=== PATIENT | female | born 1945 | race Caucasian/White ===

== ENCOUNTER → 2016-10-27 | Outpatient (CLI) | payer OTHER, BC ==
[~2016-10-27] MED LIST: ACET-749 PO; BETAPOW PO; CHOL100010 PO; DILT120C68 PO; HYDR-389 PO; INDA2.5T PO; IRBE1TAB50 PO; POTA10CA28 PO; RANI150T3 PO; RED600TA PO; [UNRECOGNIZED DRUG - CODE] PO
[2016-10-27 13:26] LABS: ALT/SGPT 31 U/L (12-78); AST/SGOT 19 U/L (15-37); BLOOD UREA NITROGEN 18 mg/dl (7-18); BUN/CREATININE RATIO 22.5 (10-20); CARBON DIOXIDE 27 mmol/L (21-32); CHLORIDE 99 mmol/L (98-107); CHOLESTEROL 212 mg/dl (0-200); CREATININE 0.81 mg/dl (0.60-1.20); GLUCOSE 119 mg/dl (70-99); POTASSIUM 3.9 mmol/L (3.5-5.1); SODIUM 137 mmol/L (136-145); TRIGLYCERIDES 197 mg/dl (0-150); VERY LOW DENSITY LIPOPROT CALC 39 mg/dl
[2016-10-27 13:30] LABS: CALCIUM 9.9 mg/dl (8.5-10.1); CHOLESTEROL/HDL RATIO 4.7; HDL CHOLESTEROL 45 mg/dl; LDL CHOLESTEROL CALCULATED 128 mg/dl
== END | disposition home or self-care (01) ==
LOC: C.LABMFLN 08:00
PROVIDERS: ATTEND Family Medicine
DX: I10 Essential (primary) hypertension (principal); E78.5 Hyperlipidemia, unspecified

== ENCOUNTER → 2016-12-22 | Outpatient (CLI) | payer OTHER, BC ==
[2016-12-22 14:17] LABS: BLOOD UREA NITROGEN 17 mg/dl (7-18); CREATININE 0.75 mg/dl (0.60-1.20)
== END | disposition home or self-care (01) ==
LOC: C.LABMFLN 08:08
PROVIDERS: ATTEND Physician Assistant
DX: H90.42 Sensorineural hearing loss, unilateral, left ear, with unrestricted hearing on the contralateral side (principal)

== ENCOUNTER → 2016-12-25 | Outpatient (CLI) | payer OTHER, BC ==
--- NOTE | 2016-12-25 08:58 | DIAGNOSTIC IMAGING REPORT ---
SOFT TISS HEAD/NECK-THYROID CLINICAL HISTORY: 71 years-old Female with R22.1 Fullness of neckRIGHT NECK ASYMMETRY LOCATED INFERIOR TO T. COMPARISON: None available TECHNIQUE: Multiple real time sonographic images of the thyroid were obtained accessing saenz scale appearance and color doppler flow. FINDINGS: MEASUREMENTS: Right lobe: 4.8 x 1.7 x 2.1 cm Left lobe: 4.4 x 1.2 x 1.2 cm Isthmus: 0.1 cm PARENCHYMA: The thyroid parenchymal echotexture is mildly heterogeneous throughout. NODULES: There are several nodules within the right thyroid. The first nodule is within the superior aspect of the right thyroid, isoechoic and wider than tall, 1.9 x 1.2 x 1.6 cm. An isoechoic nodule is seen within the lower pole, 1.7 x 0.9 x 1.3 cm which is wider than tall with ill-defined margins. There may be a third nodule within the right thyroid located within the interpolar region measuring up to 1.2 cm. Within the left thyroid, no dominant nodules seen. There are multiple hypoechoic and isoechoic nodules measuring up to 0.5 cm. IMPRESSION: 1. Multinodular thyroid with two nodules within the right thyroid demonstrating low suspicion imaging characteristics according to the [place] [employer] guidelines however both measure over 1.5 cm meeting criteria for FNA biopsy. 2. Nodule within the left thyroid is seen measuring up to 1.2 cm. Attention at follow-up ultrasound recommended. The above report was generated using voice recognition software. It may contain grammatical, syntax or spelling errors. Electronically signed by: Yuan Pool M.D. 12/25/2016 8:57 AM Dictated Date/Time: 12/25/2016 8:48 AM
--- NOTE | 2016-12-25 09:05 | DIAGNOSTIC IMAGING REPORT ---
BRAIN COMBO FOR IAC CLINICAL HISTORY: R22.1 Fullness of neck PATIENT HAS LEFT GREATER THAN RIGHT ASYMME hearing loss TECHNIQUE: Multi axial MRI acquisition COMPARISON STUDY: None FINDINGS: Diffusion-weighted images show no evidence for an acute ischemic insult. There are multiple foci of increased signal within the cerebral hemispheres bilaterally. The show no evidence for abnormal postcontrast enhancement and are suggestive of chronic small vessel change. Sella and parasellar regions are unremarkable. The internal auditory canals demonstrate a soft tissue prominence within the left internal auditory canal medially adjacent to the 7th and 8th nerves. This shows partial postcontrast enhancement and has a maximum linear dimension of 5 x 4.6 mm. The right internal auditory canal appears to be unremarkable. IMPRESSION: 1. Nodular density within the left internal auditory canal measuring 5 x 4.6 mm. 2. This appearance suggests an intracanalicular acoustic neuroma 3. Age-related chronic small vessel change throughout both cerebral hemispheres. 4. Study is otherwise negative The above report was generated using voice recognition software. It may contain grammatical, syntax or spelling errors. Electronically signed by: Vicente Jackson M.D. 12/25/2016 9:04 AM Dictated Date/Time: 12/25/2016 8:58 AM
== END | disposition home or self-care (01) ==
LOC: C.ULTRBC 07:33
PROVIDERS: ATTEND Physician Assistant
DX: R22.1 Localized swelling, mass and lump, neck (principal); E04.2 Nontoxic multinodular goiter

== ENCOUNTER → 2016-12-28 | Outpatient (CLI) | payer OTHER, BC ==
[2016-12-28 14:13] LABS: THYROID STIMULATING HORMONE 1.92 uIu/ml (0.300-4.500)
== END | disposition home or self-care (01) ==
LOC: C.LABMFLN 09:50
PROVIDERS: ATTEND Physician Assistant
DX: E04.2 Nontoxic multinodular goiter (principal)

== ENCOUNTER → 2017-01-06 | Outpatient (CLI) | payer OTHER, BC ==
--- NOTE | 2017-01-06 13:51 | DIAGNOSTIC IMAGING REPORT ---
ULTRASOUND GUIDED FINE NEEDLE ASPIRATION OF 2 RIGHT LOBE THYROID NODULES CLINICAL HISTORY: MULTIPLE THYROID NODULES COMPARISON STUDY: Thyroid ultrasound December 25, 2016. PROCEDURE: Sonography again revealed 2 dominant right lobe thyroid nodules including a 1.9 cm upper pole nodule and a 1.7 cm lower pole nodule. These 2 nodules were targeted for fine needle aspiration. The procedure, risks and benefits were discussed with the patient and informed written consent was obtained. The procedure was performed by Dr. Coto following a timeout. Skin of the right neck was prepped and draped in sterile fashion and local anesthesia was achieved with 1% lidocaine. Under direct ultrasound guidance, 2 25-gauge fine needle aspirations of the upper pole nodule were performed followed by 2 25-gauge fine needle aspirations of the lower pole nodule. The samples were deemed preliminarily adequate by pathology. The patient tolerated the procedure well and no immediate complications were evident. IMPRESSION: Ultrasound guided fine needle aspiration of 2 right lobe thyroid nodules. Electronically signed by: Rex Coto M.D. 01/06/2017 1:50 PM Dictated Date/Time: 01/06/2017 1:37 PM
== END | disposition home or self-care (01) ==
LOC: C.ULTR 12:35
PROVIDERS: ATTEND Physician Assistant
DX: E04.2 Nontoxic multinodular goiter (principal)

== ENCOUNTER → 2017-04-12 | Outpatient (CLI) | payer OTHER, BC ==
[2017-04-12 13:23] LABS: ALT/SGPT 30 U/L (12-78); AST/SGOT 18 U/L (15-37); BLOOD UREA NITROGEN 20 mg/dl (7-18); BUN/CREATININE RATIO 21.5 (10-20); CALCIUM 9.8 mg/dl (8.5-10.1); CARBON DIOXIDE 30 mmol/L (21-32); CHLORIDE 99 mmol/L (98-107); CHOLESTEROL 203 mg/dl (0-200); CREATININE 0.93 mg/dl (0.60-1.20); GLUCOSE 114 mg/dl (70-99); POTASSIUM 4.1 mmol/L (3.5-5.1); SODIUM 136 mmol/L (136-145); TRIGLYCERIDES 164 mg/dl (0-150); VERY LOW DENSITY LIPOPROT CALC 33 mg/dl
[2017-04-12 13:26] LABS: CHOLESTEROL/HDL RATIO 4.3; HDL CHOLESTEROL 47 mg/dl; LDL CHOLESTEROL CALCULATED 123 mg/dl
== END | disposition home or self-care (01) ==
LOC: C.LABMFLN 09:02
PROVIDERS: ATTEND Family Medicine
DX: I10 Essential (primary) hypertension (principal); E78.5 Hyperlipidemia, unspecified; I48.0 Paroxysmal atrial fibrillation

== ENCOUNTER → 2017-06-19 | Outpatient (CLI) | payer OTHER, BC ==
[2017-06-19 13:06] LABS: BLOOD UREA NITROGEN 19 mg/dl (7-18); CREATININE 0.78 mg/dl (0.60-1.20)
== END | disposition home or self-care (01) ==
LOC: C.LAB1850 10:34
PROVIDERS: ATTEND Specialist
DX: D33.3 Benign neoplasm of cranial nerves (principal)

== ENCOUNTER → 2017-06-21 | Outpatient (CLI) | payer OTHER, BC ==
[~2017-06-21] MED LIST changes: +GADAVIST IV PRN
--- NOTE | 2017-06-21 12:25 | DIAGNOSTIC IMAGING REPORT ---
BRAIN COMBO FOR IAC CLINICAL HISTORY: LEFT ACOUSTIC NEUROMA TECHNIQUE: Multi axial pre and post gadolinium-enhanced sequences. COMPARISON STUDY: 12/25/2016 FINDINGS: Unchanged enhancing nodule within the left internal auditory canal. Current measurements are 4.5 x 5.0 mm. Right internal auditory canals unremarkable. Signal characteristics otherwise indicate age-related atrophy and considerable chronic small vessel change. This is considered unaltered from the prior study. No additional enhancing lesion is identified. No evidence hydrocephalus. No deviation of midline structures. No evidence for an acute ischemic event based on diffusion imaging. IMPRESSION: 1. Stable left intracanalicular acoustic neuroma. 2. Unchanged dimensions at 4.5 x 5.0 mm 3. Stable atrophy. 4. Stable chronic small vessel change. The above report was generated using voice recognition software. It may contain grammatical, syntax or spelling errors. Electronically signed by: Vicente Jackson M.D. 06/21/2017 12:24 PM Dictated Date/Time: 06/21/2017 12:17 PM
--- NOTE | 2017-06-21 12:51 | DIAGNOSTIC IMAGING REPORT ---
ULTRASOUND OF THE THYROID GLAND CLINICAL HISTORY: Thyroid nodules. COMPARISON STUDY: Thyroid ultrasound dated 12/25/2016. TECHNIQUE: Real-time, grayscale, and color flow sonography of the thyroid gland is performed utilizing a high-frequency linear transducer. Images are reviewed in the transverse and longitudinal planes. FINDINGS: Right lobe: The right lobe of the thyroid gland is normal in size and homogeneous in echotexture, measuring 4.5 x 1.6 x 2.1 cm. A solid nodule in the upper pole measures 1.8 x 1.1 x 1.4 cm (previously measured 1.9 x 1.2 x 1.6 cm). A hypoechoic nodule in the posterior midpole measures 1.2 x 0.8 x 1.1 cm (previously measured 1.7 x 0.9 x 1.3 cm). Left lobe: The left lobe of the thyroid gland is normal in size and homogeneous in echotexture, measuring 4.9 x 1.2 x 1.2 cm. A honeycomb nodule in the midpole measures 0.6 x 0.5 x 0.5 cm (previously measured up to 0.5 cm). Additional subcentimeter nodules are noted. Isthmus: The thyroid isthmus is normal in appearance and measures 0.1 cm in AP diameter. IMPRESSION: Multinodular thyroid gland as above. There has been no significant change from 12/25/2016. Electronically signed by: Ilya Vasquez M.D. 06/21/2017 12:50 PM Dictated Date/Time: 06/21/2017 12:45 PM
== END | disposition home or self-care (01) ==
LOC: C.MRI 10:46
PROVIDERS: ATTEND Specialist
DX: D33.3 Benign neoplasm of cranial nerves (principal); I67.9 Cerebrovascular disease, unspecified

== ENCOUNTER 2020-01-25 06:51 | Observation (INO) ==
[2020-01-25] MEDS ORDERED: LIDOCAINE HCL 1% 20 ML VIAL ONE (06:56)
[2020-01-25] MEDS ORDERED: BUPIVACAINE 0.25% 30 ML VIAL ONE (06:56)
[2020-01-25] MEDS ORDERED: BACITRACIN INJ 50,000 UNIT VIAL ONE (06:57)
--- NOTE | 2020-01-25 07:40 | History & Physical Bridge Note ---
Date of Service January 25, 2020 History & Physical Bridge Note I have examined the patient, reviewed the History & Physical and in the interval since the performance of the History & Physical I have noted the following changes of clinical significance: no changes noted. No recent AF
--- NOTE | 2020-01-25 07:41 | Pre Anesthesia Assessment ---
Date of Service January 25, 2020 Pre Sedation Assessment Vital Signs Temp Pulse Resp BP Pulse Ox 01/25/20 07:12 36.7 C 60 14 134/97 97 Cardiovascular + regular rate Respiratory + respiratory effort normal Pre-Sedation Airway Assessment Smoking Status: Never smoker Hx Sleep Apnea: No Hx Difficult Intubation: No Short, Thick Neck: No Thyromental Distance: > or= 3.5 Finger Breadths Oral Cavity: + WNL Mallampati Class: III ASA: ASA3 NPO Status Date of Last Intake of Fluids: 01/25/20 Time of Last Intake of Fluids: 06:00 Last Oral Intake of Fluids Comment: sips with pills Date of Last Intake of Solid Food: 01/24/20 Time of Last Intake of Solid Foods: 20:00 Procedure Planning Contraindications for Sedation: none Current Medications Reviewed: Yes Notes The planned sedation has been discussed with the patient. Informed Consent was obtained. I have identified the patient, determined the appropriateness of sedation and have assessed the patient immediately prior to the procedure. All medicine(s) and interventions are by my order.
[2020-01-25] MEDS ORDERED: MIDAZOLAM HCL 5 MG/ML 1 ML VIAL ONE (07:53)
[2020-01-25] MEDS ORDERED: fentaNYL citrate 100 MCG/2 ML VIAL ONE (07:53)
[2020-01-25] MEDS ORDERED: CEFAZOLIN 250 MG/ML 1 GM VIAL ONE (07:53)
--- NOTE | 2020-01-25 08:49 | Post Anesthesia Assessment ---
Date of Service January 25, 2020 Post Sedation Assessment Vital Signs Temp Pulse Resp BP Pulse Ox 01/25/20 07:12 36.7 C 60 14 134/97 97 Recovery Score Activity: Moves 4 extremities Respiration: Deep Breath/Cough Circulation: +/-20% PreAnes Value Consciousness: Fully Awake Oxygen Saturation: > 92% On Room Air Discharge Sedation Level of Care: Fast Track Phase II Post Sedation Plan On clinical assessment, the patient appears to have tolerated the sedation without complications. Patient is recovering as anticipated. Patient will continue to be monitored by nursing and may be discharged when sedation discharge criteria are met per below protocol. Upon Completions of procedure up to 15 minutes continue every 5 minute vital signs and the P.A.R. score; then discharge to a Phase I or Fast Track to Phase II per the following guidelines: * Discharge Patient to appropriate Phase II area if PAR is 8 or greater or return to pre- procedure baseline. The post - procedure orders will be as directed. * If PAR score is less than 8 or not return to pre-procedure baseline then patient will follow Phase I monitoring till PAR is reached for Phase II. The Phase I may be done in procedure room or may call to secure a Phase I area. * If naloxone or flumazenil are used for reversal, hold in Phase I for continued monitoring from when last reversal dose was given for a minimum of 60 minutes or longer pending the nurse and/or physician discretion of patient condition before discharge to Phase II. Please call the Sedation Physician to re-evaluate and complete post-note for discharge to Phase II area. Do NOT discharge from procedure sedation or Phase 1 until post- sedation evaluation note is complete by procedure /sedation MD Sedation Discharge Instructions to be given to the patient at discharge to home.
[2020-01-25] MEDS ORDERED: ACETAMINOPHEN 325 MG TAB PO PRN (08:51)
--- NOTE | 2020-01-25 08:51 | Electrophysiology Report ---
Date of Service January 25, 2020 Electrophysiology Procedure Electrophysiology Procedure Report Procedure performed: Implantation of dual-chamber permanent pacemaker Staff gis software engineer: Farhat Francisco MD Indication: The patient is a 74-year-old woman with a history of paroxysmal atrial fibrillation and conversion pauses which resulted in presyncope. Patient is a very good candidate for dual-chamber permanent pacemaker due to symptomatic nonreversible sinus node dysfunction. Dual-chamber device was selected as she is currently in sinus rhythm and wished to maintain AV synchrony. Procedure in detail: The patient was informed of the risks benefits and alternatives to the intended procedure and she wished to proceed. She was taken to the electrophysiology suite in a fasting state. A preoperative antibiotic had been administered. The patient was monitored electrocardiographically throughout today's procedure and conscious sedation was administered per protocol. The left upper pectoral area is prepped and draped in usual sterile fashion. This area was anesthetized using subcutaneous administration of a xylocaine solution. An incision was made at this site and carried down to the prepectoralis fascia using sharp dissection. Electrocautery was also employed for dissection as well as for hemostasis. A device pocket was fashioned tissues above the pectoralis muscle. Subsequent to this maneuver the left axillary vein was accessed using modified Seldinger technique. Sheaths were placed over guidewires at this site and used to facilitate passage of the pacing leads to the respective chambers under fluoroscopic guidance. This included right atrial and right ventricular leads. Adequate sensing and threshold parameters were obtained prior to Active fixation of the leads to the endocardial surface. The proximal portion leads were then sutured the prepectoral fascia using nonabsorbable suture. The device pocket was irrigated with antibiotic solution. The leads were then attached to the device. The device and leads were then placed in the pocket and pocket was closed in 3 layers of absorbable suture. Steri-Strips and sterile dressing were applied. The device was tested noninvasively prior to conclusion the procedure. The patient tolerated procedure well there no immediate complications. Equipment used: New pulse generator: [employer]. Model number: [id number] serial number [id number] Right atrial lead: [employer]. Model number: 5076 serial number [id number] Right ventricular lead: [employer]. Model number: 5076 serial number [id number] Measured data: Right atrial lead: P waves measured 3.6 mV. Pacing threshold 2 V at 0.4 ms with a pacing impedance of 589 ohms Right ventricular lead: R waves measured 12.0 mV. Pacing threshold 0.75 V at 0.4 ms with a pacing impedance of 779 ohms Impression: Successful implantation of dual-chamber pacemaker MNPG Electrophysiology codes Pacing Procedure 1: Pacin Insert/Replace Pacer A & V PG Moderate Sedation Codes Moderate Sedation Codes Procedure 1: Sedation/Anesthesia: 58865 Mod Sedation by the same physician;Init15 Min Child Age 5 & Up Procedure 2: Sedation/Anesthesia: 24360 Mod Sedation by the same physician; Ea [id number] Minutes
[2020-01-25] MEDS: OXYCODONE HCL IR 5 MG TAB (IMMEDIATE RELEASE) PO PRN (16:31)
[2020-01-25] MEDS: CEFAZOLIN 1000MG 1,000 MG/7.5 ML SYR IV SCH ×2 (16:32→23:36)
[2020-01-25] MEDS ORDERED: TRAZODONE HCL 50 MG TAB PO PRN (17:14)
[2020-01-25] MEDS ORDERED: ACETAMINOPHEN W/CODEINE #3 1 TAB PO PRN ×2 (17:14→17:24)
[2020-01-25] MEDS: FAMOTIDINE 20 MG TAB PO SCH (20:53)
[2020-01-26] MEDS: OXYCODONE HCL IR 5 MG TAB (IMMEDIATE RELEASE) PO PRN (03:56)
--- NOTE | 2020-01-26 08:43 | XRay Report ---
XR chest 2V PA/lateral HISTORY: 74 years-old Female EXACT TIME ORDERED Evaluate for pneumothorax and l status post placemen t of a left subclavian pacer COMPARISON: None TECHNIQUE: PA and lateral views of the chest FINDINGS: The cardiomediastinal and hilar silhouettes are within normal limits. No pneumothorax, pleural effusi on, airspace consolidation or overt pulmonary edema. Mild linear subsegmental bibasilar opacities sug gestive of atelectasis/scarring. Dual lead left subclavian pacer. The leads appear intact. Degenerati ve changes of the shoulders and spine. Mild levoscoliosis of the lumbar spine. IMPRESSION: Status post placement of a dual-lead left subclavian pacer. No postprocedural pneumothora x. ACT 112: Negative or not required by law. The above report was generated using voice recognition software. It may contain grammatical, syntax o r spelling errors. Electronically signed by: Yuan Pool M.D. 01/26/2020 8:42 AM
[2020-01-26] MEDS ORDERED: POTASSIUM CHLORIDE 10 MEQ TABCR PO SCH (09:00)
[2020-01-26] MEDS ORDERED: INDAPAMIDE 1.25 MG TAB PO SCH (09:00)
[2020-01-26] MEDS ORDERED: IRBESARTAN 150 MG TAB PO SCH (09:00)
[2020-01-26] MEDS ORDERED: dilTIAZem ER 120 MG CAPCR PO SCH (09:00)
[2020-01-26] MEDS ORDERED: hydrOXYzine HCl 10 MG TAB PO SCH (09:00)
[2020-01-26] MEDS: CEFAZOLIN 1000MG 1,000 MG/7.5 ML SYR IV SCH (09:08)
[2020-01-26] MEDS: FAMOTIDINE 20 MG TAB PO SCH (09:09)
--- NOTE | 2020-01-26 09:39 | Discharge Summary ---
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 No hematoma or drainage. No erythema Discharge Data Allergies Allergy/AdvReac Type Severity Reaction Status Date / Time amoxicillin Allergy Unknown "I FELT Verified 01/17/20 11:07 WORSE AFTER TAKING THE MEDICATION" pantoprazole Allergy Unknown "DIDN'T Verified 01/17/20 11:07 FEEL WELL AND WENT INTO A-FIB" APOLLO Inhibitors AdvReac COUGH Verified 01/17/20 11:07 Procedures Performed Operation Date: 01/25/20 08:00 Actual Procedures p Pacer with A/V Leads (Dual) - Dionisio Francisco MD Ordered Studies 01/25/20 06:41 CL Cath Imgs for PACS use only Routine Hospital Course (1) Paroxysmal atrial fibrillation: She underwent implantation of a dual chamber [employer] pacemaker on the day of admission. CXR and evaluation of the device on the day of discharge was satisfactory. No complications Total Time Total Time Spent Total Time Spent (In Minutes): 10 Total Time Includes: Examination of the Patient, Discharge Planning and Medication Reconciliation Discharge Plan Discharge Items Patient Disposition: Home - Self-Care Reason For Visit: Atrial Fibrillation Discharge Diagnosis: tachy-sylvia syndrome Activity: Per Instructions section Activity Comment: No lifting left arm above shoulder or behind neck for 6 weeks Lifting: No more than 10 pounds Bathing: Keep incision dry Bathing Comment: Keep wound dry and steri-strip intact until f/u in 1 week Driving/Machine Use: Resume 1 day after discharge Non-emergency contact: Newspaper Clipper Call non-emergency contact if: your pain is concerning for you, you have a fever, your wound has increased redness, your wound has increased drainage and your wound pain has increased Follow-up/Referrals: Ilya Yu MD [Primary Care Provider] - 01/31/20 2:30 pm (Please follow up with Dr. Yu at [facility] on Wednesday01/31/2020 at 2:30 pm. Please arrive to the office 15 minutes early for your appointment. If you are unable to keep this appointment, please call the office to reschedule at [phone].) Diet: Heart Healthy Addtl Attending Provider Instructions: Re-start eliquis tomorrow Pending Studies at Discharge: No Stand-Alone Forms: My [facility] [employer], Smoking Cessation Medications and DC Order Prescriptions: Continued diltiazem HCl 120 mg capsule,extended release 24hr 120 mg PO DAILY Qty: 90 RF: 3 Eliquis 5 mg tablet 5 mg PO BID Qty: 60 RF: 11 hydroxyzine HCl 10 mg tablet 10 mg PO DAILY Qty: 90 RF: 3 irbesartan 300 mg tablet 300 mg PO DAILY Qty: 90 RF: 3 acetaminophen-codeine [Tylenol-Codeine #3] 300-30 mg tablet 1 tab PO .COMPLEX MDD 4 PRN (Reason: pain) Qty: 120 RF: 2 potassium chloride 10 mEq capsule, extended release 10 meq PO DAILY Qty: 90 RF: 3 trazodone 50 mg tablet See Rx Instructions PO HS PRN (Reason: insomnia) Qty: 180 RF: 3 indapamide 2.5 mg tablet 5 mg PO DAILY Qty: 180 RF: 3 cholecalciferol (vitamin D3) 2,000 unit tablet 2,000 units PO DAILY Qty: 90 RF: 3 red yeast rice 600 mg capsule 600 mg PO BID Qty: 180 RF: 3 famotidine 20 mg tablet 20 mg PO BID Qty: 180 RF: 3 (DME) Incontinence pads. daytime Qty: 100 RF: 11 (DME) incontinence pads nighttime Qty: 60 RF: 11 zinc 50 mg tablet 50 mg PO DAILY RF: 0 Discharge Orders: Discharge Order (Routine); Ordered 01/26/20 Ordered By: Dionisio Travis/Other Patient Handouts: Pacemakers, Living with a Pacemaker, Discharge Instructions for Pacemaker Implantation Admission Data Admit Date/Time: 01/25/20 08:13 Attending Provider: Dionisio Francisco Admit Provider: Dionisio Francisco Primary Care Provider: Ilya Yu Other Interventions: Discharge Summary Assessment (RN) Last Done: 01/26/20 09:47 Coding Level of Care Code 43073 OBS Care - Discharge Diagnoses Paroxysmal atrial fibrillation I48.0
== END 2020-01-26 11:13 | disposition home or self-care (01) ==
LOC: 2S 06:51 → EP 06:51

== ENCOUNTER 2021-09-30 20:47 | Observation (INO) ==
[2021-09-30] MEDS ORDERED: SODIUM CHLORIDE 0.9% 1000ML 1,000 ML IV SCH (21:45)
[2021-09-30] MEDS ORDERED: SODIUM CHLORIDE 0.9% 500 ML IV SCH (21:45)
[2021-09-30 21:49] LABS: Basophils # (auto) 0.01 K/uL (0-0.2); Basophils % (auto) 0.1 %; Eosinophils # (auto) 0.13 K/uL (0-0.5); Eosinophils % (auto) 1.4 %; Hematocrit (blood only) 36.9 % (37-47); Hemoglobin 12.3 g/dL (12.0-16.0); Immature Granulocytes # (auto) 0.05 K/uL (0.00-0.02); Immature Granulocytes % (auto) 0.5 %; Lymphocytes # (auto) 0.97 K/uL (1.2-3.4); Lymphocytes % (auto) 10.3 %; Mean Corpuscular Hemoglobin 30.1 pg (25-34); Mean Corpuscular Hgb Conc 33.3 g/dL (32-36); Mean Corpuscular Volume 90.2 fL (80-100); Mean Platelet Volume 10.2 fL (7.4-10.4); Monocytes % (auto) 9.6 %; Neutrophils # (auto) 7.35 K/uL (1.4-6.5); Neutrophils % (auto) 78.1 %; Platelet Count 216 K/uL (130-400); RDW Coefficient of Variation 18.5 % (11.5-14.5); RDW Standard Deviation 59.9 fL (36.4-46.3); Red Blood Count 4.09 M/uL (4.2-5.4); White Blood Count 9.41 K/uL (4.8-10.8)
[2021-09-30 21:56] LABS: Appearance Urine Clear (Clear); Bacteria Urine Automated Negative (Negative); Bilirubin Urine Negative (Negative); Blood Urine Trace (Negative); Cast Urine Automated 0 /lpf (0-5); Color Urine Yellow; Epithelial Cell Urine Auto 20-30 /lpf (0-5); Glucose Urine UA Negative (Negative); Ketones Urine Negative (Negative); Leukocyte Esterase Urine 1+ (Negative); Nitrite Urine Negative (Negative); Protein Urine Negative (Negative); RBC Urine Automated 0-4 /hpf (0-4); Specific Gravity Urine 1.008 (1.000-1.030); Urobilinogen Urine Negative (Negative)
[2021-09-30 22:07] LABS: Albumin Globulin Ratio 1.3 (0.9-2); Albumin Level 3.8 gm/dl (3.4-5.0); BUN Creatinine Ratio 19.3 (10-20); Bilirubin,Total 0.8 mg/dl (0.2-1.0); Creatinine Clr Calc Pharmacy 52.8 ml/min; Est GFR (African American) 72.9 ml/min; Est GFR (Non-African American) 62.9 ml/min; Globulin 2.9 gm/dl (2.5-4.0); Magnesium 1.1 mg/dl (1.7-2.4); Phosphorus 3.1 mg/dl (2.5-4.9); Potassium 3.7 mmol/L (3.5-5.1); Total Protein 6.7 gm/dl (6.0-8.3)
[2021-09-30] MEDS ORDERED: OPTIRAY 320 100ml IV ONE (23:10)
[2021-09-30] MEDS: MAGNESIUM SULFATE / D5W 1 GM/100 ML BAG IV SCH (23:22)
--- NOTE | 2021-10-01 01:18 | History & Physical Report ---
Date of Service October 01, 2021 Assessment & Plan (1) Hypercalcemia: Plan: Tessa Knox is a 76 yo female with PMHx of pAfib (anticoagulated on Eliquis, rate controlled w/ diltiazem), DM2, seronegative symmetrical synovitis (RS3PE), HTN, HLD, GERD, acoustic neuroma, and lumbar spinal stenosis admitted for further evaluation of hypercalcemia. Hypercalcemia - Ca 12.0 on admission putting her on the low end of moderate hypercalcemia (range 12.0-14.0) - Ca was 11.1 on on 09/09/21 but prior to that Ca was wnl - Albumin wnl (3.8), TSH wnl (2.23) - PTH intact is low at 6.4 - Will check additional labs to include PTHrP, vit D, and iCa - Continue IVF with NSS at 80cc/hr - Recheck BMP in AM Hypomagnesemia - Mag 1.1 on admission - Likely secondary to hypercalcemia - Replete mag - Recheck mag in AM Abdominal pain, recent dx of left sided nephrolithiasis - CT A/P 09/09/21: 4mm stone in the distal left ureter. No hydronephrosis. No additional stone in either kidney. - CT A/P 09/30/21 statrad report: No obstructive nephrolithiasis or hydronephrosis. No definite left proximal to mid ureteral stones. Subcentimeter calcifications in the left lateral pelvis and central pelvis are presumed phleboliths. Subtle distal L ureteral stone is difficult to entirely exclude laterally. - Pt started on cipro today due to UTI on UA in office; will discontinue cipro at this time given unremarkable UA in ED - Urine cx ordered - Exam unremarkable and w/o TTP RS3PE syndrome - Followed by rheumatology (Dr. Rivera) - Has been on prednisone 10mg daily; taper by 2.5mg every week until off - Therefore, continue home prednisone 7.5mg po daily at this time - Continue home methotrexate - Continue home folic acid 2mg daily pAfib and hx of tachybrady syndrome - Currently in NSR - Continue rate control with home diltiazem - Continue home anticoagulation with Eliquis - Has pacemaker -- last interrogated 08/25/21 with stability Chronic pain w/ chronic narcotic use - Continue home regimen with hydrocodone HTN - Continue home irbesartan GERD - Continue home omeprazole DM2 - Most recent A1c 7.4% (07/25/21) - Hold home metformin Dyslipidemia - Not on a statin due to patient preference per cardiology note - Continue management with diet FENGI: DM2 diet; IVF NSS 80 cc/hr DVT Ppx: Anticoagulated on Eliquis Dispo: Admit for observation on medsurg Code status: Conditional code (DNR) (2) Hypomagnesemia: (3) Intractable left upper quadrant abdominal pain: (4) Chronic narcotic use: (5) 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 Patient states that for the past 1 month, she has been experiencing left sided abdominal pain. Patient initially diagnosed with nephrolithiasis on CT abd/pelvis 09/09/21 and has been straining her urine without known passage of the stone. Patient has continued to have abd pain w/ associated nausea, chills, weakness, and 1 week hx of generalized HO so she underwent re-evaluation with PCP today. UA in office with 2+ blood and 1+ leukocytes; she was started on cipro. Labs were also ordered and patient was notified of a high calcium level (Ca 12.0) so she was sent to the ER for further evaluation. Patient reports overall pain at a 5/10. She has been taking Tylenol prn at home with some relief. Patient also reports taking hydrocodone 5-325mg q6h since Fall 2020 (when diagnosed with RS3PE due to hand pain) but has more recently been trying to decrease frequency to q8h. Patient does report hx of GERD which is controlled by omeprazole; she does not use Tums at home. She does drink ~24 oz. of milk daily. No known hx of thyroid disease. Patient denies vomiting, fever, syncope, lightheadedness, dizziness, numbness/tingling, CP, SOB, edema, sinus pain, sinus congestion, rhinorrhea, cough, sore throat, or any other symptoms. No recent falls or trauma. Allergies Allergy/AdvReac Type Severity Reaction Status Date / Time amoxicillin Allergy Intermediate "I FELT Verified 09/30/21 22:56 WORSE AFTER TAKING THE MEDICATION" hydroxychloroquine Allergy Intermediate HIVES HEAD Verified 09/30/21 22:56 [From Plaquenil] TO TOE pantoprazole Allergy Intermediate "DIDN'T Verified 09/30/21 22:56 FEEL WELL AND WENT INTO A-FIB" APOLLO Inhibitors AdvReac Intermediate COUGH Verified 09/30/21 22:56 Home Medications Medication Instructions Recorded Confirmed Type Incontinence pads. #100 ea 07/12/19 09/30/21 Rx incontinence pads #60 ea 07/12/19 09/30/21 Rx irbesartan 300 mg tablet 300 mg PO DAILY #90 tab 04/14/21 09/30/21 Rx triamcinolone acetonide 0.1 % 1 applic TOPICAL BID PRN #80 g 04/14/21 09/30/21 Rx topical cream diltiazem HCl 240 mg 240 mg PO DAILY #90 cap 06/09/21 09/30/21 Rx capsule,extended release 24 hr apixaban 5 mg tablet (Eliquis) 5 mg PO BID #180 tab 07/11/21 09/30/21 Rx folic acid 1 mg tablet 1 mg PO DAILY #90 tab 07/11/21 09/30/21 Rx metformin 500 mg tablet,extended 500 mg PO DAILY #90 tab 07/29/21 09/30/21 Rx release 24hr cholecalciferol (vitamin D3) 125 125 mcg PO DAILY 08/12/21 09/30/21 History mcg (5,000 unit) capsule omeprazole 40 mg capsule,delayed 40 mg PO DAILY #30 cap 08/13/21 09/30/21 Rx release tamsulosin 0.4 mg capsule 0.4 mg PO DAILY #30 cap 09/10/21 09/30/21 Rx hydrocodone 5 mg-acetaminophen 325 See Rx Instructions PO Q6H PRN 09/15/21 09/30/21 Rx mg tablet #240 tab MDD 8 blood-glucose meter (Blood Glucose #50 ea 09/16/21 09/30/21 Rx Monitoring) methotrexate sodium 2.5 mg tablet 20 mg PO .weekly tab 09/16/21 09/30/21 History ciprofloxacin HCl 500 mg tablet 500 mg PO BID 10 Days #20 tab 09/30/21 09/30/21 Rx (Cipro) prednisone 5 mg tablet 7.5 mg PO DAILY tab 09/30/21 09/30/21 History Past Med/Surg History Medical History (Updated 10/01/21 @ 02:36 by Franca Garza DO) Benign essential hypertension Chronic low back pain Chronic narcotic use Chronic rhinitis Cystocele Diverticulosis Drug-induced diabetes mellitus Fibroadenoma of breast Gastroesophageal reflux disease Hearing loss Hyperlipidemia Hypokalemia Hyponatremia Insomnia, persistent Intractable left upper quadrant abdominal pain Left acoustic neuroma Left asymmetrical SNHL Left flank pain Leukocytosis Lumbar spinal stenosis Multiple thyroid nodules Osteopenia Paroxysmal atrial fibrillation Prediabetes Rectocele 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 Stress incontinence Ureteral calculus, left Urinary incontinence Vitamin D insufficiency Surgical History H/O breast surgery right--fibroadenoma History of cryosurgery cervix History of hysterectomy History of total bilateral knee replacement Family History Mother Diabetes Hypertension Breast cancer Father Hypertension Grandfather (Maternal) Myocardial infarction Grandfather (Paternal) Myocardial infarction Brother Hypertension Unknown Hyperlipidemia Denies family history of Ovarian cancer Prostate cancer Adverse anesthesia outcome Colorectal cancer Stroke Asthma Social History Smoking Status: Never smoker Second Hand Exposure: No; Hx Alcohol Use: No Hx Substance Use: No Preferred Language: Martiniquais Communication Ability: Effective Visual Impairment: Partially Limited Hearing Ability: Use of Hearing Aid [employer]cher[employer] Required: No Beliefs That Will Affect Care: None marital status: Current Living Situation: Spouse current occupational status: retired Feels Safe at Home: Yes Childhood Exposure to Second-Hand Smoke: No caffeine: Yes (coffee) during the past year weight has: remained stable Dental Care, Regularly: No Physical Activity Frequency: 3-4 Times per Week Seatbelt Use: always Sunscreen Use: Yes (sometimes) Do you think of yourself as: straight/heterosexual Review of Systems Review of Systems: See HPI Physical Exam Physical Exam: GENERAL: No acute distress. Well developed and well nourished. Vital signs reviewed as above. EYES: PERRLA. EOMI. Anicteric sclerae. HENT: Moist mucous membranes. No pharyngeal erythema or exudates. No cervical lymphadenopathy. RESPIRATORY: Clear to auscultation bilaterally. No wheezing, rales, or rhonchi. CARDIOVASCULAR: Regular rate and rhythm. + ANALI. ABDOMEN: Soft, non-tender and non-distended. Normal bowel sounds. EXTREMITIES: No edema. Non-tender. SKIN: Warm, dry. NEUROLOGIC: A/O x3. No focal neurological deficits. CN II-XII grossly intact. PSYCHIATRIC: Cooperative. Appropriate mood and affect. Results & Data Results & Data ([facility]) Vital Signs (Past 12 Hours) Vital Signs Temp Pulse Pulse Resp BP BP Pulse Ox 10/01/21 00:01 65 18 143/71 H 91 09/30/21 22:42 75 20 97 09/30/21 22:30 37.0 C 72 18 162/87 H 97 09/30/21 21:01 36.8 C 86 16 173/81 H 94 Laboratory Results 09/30/21 09/30/21 09/30/21 Range/Units 21:35 21:35 21:35 WBC 9.41 (4.8-10.8) K/uL RBC 4.09 L (4.2-5.4) M/uL Hgb 12.3 (12.0-16.0) g/dL Hct 36.9 L (37-47) % MCV 90.2 (80-100) fL MCH 30.1 (25-34) pg MCHC 33.3 (32-36) g/dL RDW Std Deviation 59.9 H (36.4-46.3) fL RDW Coeff of Angela 18.5 H (11.5-14.5) % Plt Count 216 (130-400) K/uL MPV 10.2 (7.4-10.4) fL Immature Gran % (Auto) 0.5 % Neut % (Auto) 78.1 % Lymph % (Auto) 10.3 % [place] % (Auto) 9.6 % Eos % (Auto) 1.4 % Baso % (Auto) 0.1 % Neut # (Auto) 7.35 H (1.4-6.5) K/uL Lymph # (Auto) 0.97 L (1.2-3.4) K/uL [place] # (Auto) 0.90 H (0.11-0.59) K/uL Eos # (Auto) 0.13 (0-0.5) K/uL Baso # (Auto) 0.01 (0-0.2) K/uL Immature Gran # (Auto) 0.05 H (0.00-0.02) K/uL Sodium 132 L (136-145) mmol/L Potassium 3.7 (3.5-5.1) mmol/L Chloride 95 L (98-107) mmol/L Carbon Dioxide 27 (21-32) mmol/L Anion Gap 10 (3-11) BUN 17 (6-23) mg/dl Creatinine 0.88 (0.6-1.2) mg/dl Est Cr Clr Drug Dosing 52.8 ml/min Est GFR ( Amer) 72.9 ml/min Est GFR (Non-Af Amer) 62.9 ml/min BUN/Creatinine Ratio 19.3 (10-20) Glucose 109 H (70-99(Fasting)) mg/dl Calcium 12.0 H (8.5-10.1) mg/dl Phosphorus 3.1 (2.5-4.9) mg/dl Magnesium 1.1 L (1.7-2.4) mg/dl Total Bilirubin 0.8 (0.2-1.0) mg/dl AST 29 (13-39) U/L ALT 40 (7-52) U/L Alkaline Phosphatase 58 (34-104) U/L Total Protein 6.7 (6.0-8.3) gm/dl Albumin 3.8 (3.4-5.0) gm/dl Globulin 2.9 (2.5-4.0) gm/dl Albumin/Globulin Ratio 1.3 (0.9-2) TSH 2.229 (0.300-4.500) uIu/ml PTH Intact (12.0-88.0) pg/ml Urine Color Urine Appearance (Clear) Urine pH (4.5-7.5) Ur Specific [place] (1.000-1.030) Urine Protein (Negative) Urine Glucose (UA) (Negative) Urine Ketones (Negative) Urine Blood (Negative) Urine Nitrite (Negative) Urine Bilirubin (Negative) Urine Urobilinogen (Negative) Ur Leukocyte Esterase (Negative) Urine WBC (Auto) (0-5) /hpf Urine RBC (Auto) (0-4) /hpf U Hyaline Cast (Auto) (0-5) /lpf U Epithel Cells (Auto) (0-5) /lpf Urine Bacteria (Auto) (Negative) 09/30/21 09/30/21 Range/Units 21:30 21:30 WBC (4.8-10.8) K/uL RBC (4.2-5.4) M/uL Hgb (12.0-16.0) g/dL Hct (37-47) % MCV (80-100) fL MCH (25-34) pg MCHC (32-36) g/dL RDW Std Deviation (36.4-46.3) fL RDW Coeff of Angela (11.5-14.5) % Plt Count (130-400) K/uL MPV (7.4-10.4) fL Immature Gran % (Auto) % Neut % (Auto) % Lymph % (Auto) % [place] % (Auto) % Eos % (Auto) % Baso % (Auto) % Neut # (Auto) (1.4-6.5) K/uL Lymph # (Auto) (1.2-3.4) K/uL [place] # (Auto) (0.11-0.59) K/uL Eos # (Auto) (0-0.5) K/uL Baso # (Auto) (0-0.2) K/uL Immature Gran # (Auto) (0.00-0.02) K/uL Sodium (136-145) mmol/L Potassium (3.5-5.1) mmol/L Chloride (98-107) mmol/L Carbon Dioxide (21-32) mmol/L Anion Gap (3-11) BUN (6-23) mg/dl Creatinine (0.6-1.2) mg/dl Est Cr Clr Drug Dosing ml/min Est GFR ( Amer) ml/min Est GFR (Non-Af Amer) ml/min BUN/Creatinine Ratio (10-20) Glucose (70-99(Fasting)) mg/dl Calcium (8.5-10.1) mg/dl Phosphorus (2.5-4.9) mg/dl Magnesium (1.7-2.4) mg/dl Total Bilirubin (0.2-1.0) mg/dl AST (13-39) U/L ALT (7-52) U/L Alkaline Phosphatase (34-104) U/L Total Protein (6.0-8.3) gm/dl Albumin (3.4-5.0) gm/dl Globulin (2.5-4.0) gm/dl Albumin/Globulin Ratio (0.9-2) TSH (0.300-4.500) uIu/ml PTH Intact 6.4 L (12.0-88.0) pg/ml Urine Color Yellow Urine Appearance Clear (Clear) Urine pH 7.0 (4.5-7.5) Ur Specific [place] 1.008 (1.000-1.030) Urine Protein Negative (Negative) Urine Glucose (UA) Negative (Negative) Urine Ketones Negative (Negative) Urine Blood Trace H (Negative) Urine Nitrite Negative (Negative) Urine Bilirubin Negative (Negative) Urine Urobilinogen Negative (Negative) Ur Leukocyte Esterase 1+ H (Negative) Urine WBC (Auto) 1-5 (0-5) /hpf Urine RBC (Auto) 0-4 (0-4) /hpf U Hyaline Cast (Auto) 0 (0-5) /lpf U Epithel Cells (Auto) 20-30 H (0-5) /lpf Urine Bacteria (Auto) Negative (Negative) Diagnostic Findings [facility] Patient: TESSA KNOX (Female) : 41 Status: ER Date: 09/30/21 23:17 Room #: History: PAIN AT [facility], KNOWN STONE IN LOWER LEFT URETER UNSURE IF SHE PASSED IT ELEVATED WBC HEMATURIA Slices: [id number] Priors: Tech: Jeronimo Paredes @ [phone] Exams: CT ABDOMEN & PELVIS With Contrast Contrast: IV Amt: 93 ML OPTIRAY 320 Accession Numbers: [id number] Referring Physician: TANVIR GONZALES Preliminary Findings Only See Final Report For Complete Findings CT ABDOMEN & PELVIS With Contrast: The kidneys demonstrate normal enhancement without obstructive nephrolithiasis or hydronephrosis. No definite left proximal to mid ureteral stones. The subcentimeter calcifications in the left lateral pelvis and central pelvis are presumed phleboliths. However, a subtle distal left ureteral stone is difficult to entirely exclude laterally. No ureterectasis. No bladder stones. No prior imaging available. No evidence for bowel obstruction. Mild mucosal prominence of the to underdistention. Scattered diverticulosis without obvious diverticulitis. No free intraperitoneal fluid or pneumoperitoneum. The bladder is mild moderately distended without significant wall abnormalities or calcifications. Noncalcified gallstones are noted in the gallbladder. No CT evidence for gal lbladder wall thickening or biliary dilatation. The liver, pancreas, spleen and adrenal glands are unremarkable. No acute osseous or significant overlying soft tissue abnormality. Radiologist: Kameron De Jesus MD Study ready at 23:23 and initial results transmitted at 23:38 *This report constitutes a preliminary interpretation only. Non-acute findings felt to be unrelated to the clinical presentation may not be discussed in this report. The study will be interpreted and a final report will be generated by the local Radiologist the following shift. To reach the [facility] radiology department call [phone]. If a discrepancy is found between the preliminary and final interpretations of this study, please notify us via our Client Portal at [email or web address], under QA Exams. You can also fax this report with a description of the discrepancy, or include the final report, to our daytime fax number [phone]. If faxing, please indicate the severity of discrepancy using one of the following categories: [ ] 1 - Agree/Informational [ ] 2 - Unlikely to Affect Management [ ] 3 - Possible Eventual Change of Management [ ] 4 - Probable Immediate Change of Management For all other patient related information, please fax us at [phone]. [id number] Supervising Physician Co-Signing Physician Notes Patient seen and examined, chart reviewee, case discussed with Dr. Levine and I agree with the assessment and plan as above. In brief, patient is a 76yo female presenting with hypercalcemia. She had recent renal stone, complaints of left sided abdominal pain. On exam she is resting comfortably, NAD, oriented x 4 Skin - intact, no rash/lesions HEENT - NC/AT, PERRL, MMM, Neck supple Heart - +S1/S2, regular Lungs - CTA Abd - +BS, soft, NT/ND, no masses/organomegaly or ascites Ext - warm, well perfused Labs and images reviewed Hypercalcemia, hypomagnesemia. Normal Albumin. Low PTH Assessment/Plan -Workup for hypercalcemia - ionized Ca, Vitamin D, PTHrP for now -Mg repletion -IVF -Repeat labs in AM -Remainder as above Resident Activity Tracking Resident Involvement: Resident Care Provided Care Provided: Adult Hospital Medicine
--- NOTE | 2021-10-01 02:13 | Billing Data ---
Date of Service October 01, 2021 Coding Level of Care Code INT OBSERVATION CARE 50M LVL 2
[2021-10-01] MEDS ORDERED: ONDANSETRON INJ 2 MG/ML 2 ML VIAL IV PRN (04:15)
[2021-10-01] MEDS ORDERED: ACETAMINOPHEN 325 MG TAB PO PRN (04:15)
[2021-10-01] MEDS ORDERED: SODIUM CHLORIDE 0.9% 1000ML 1,000 ML IV SCH ×2 (04:15→18:00)
[2021-10-01] MEDS ORDERED: POLYETHYLENE (MIRALAX) 17 GM PACK PO PRN (04:15)
[2021-10-01] MEDS ORDERED: MAGNESIUM HYDROXIDE SUSP 30 ML UDC PO PRN (04:15)
[2021-10-01] MEDS ORDERED: ALUMINUM/MAGNESIUM SUSP 30 ML UDC PO PRN (04:15)
[2021-10-01] MEDS: MAGNESIUM SULFATE / D5W 1 GM/100 ML BAG IV SCH ×3 (04:51→07:02)
--- NOTE | 2021-10-01 06:09 | Emergency Department Note ---
Impression & Plan Hypercalcemia, Hypomagnesemia, Anticoagulant long-term use, Cholelithiasis, Intermittent upper abdominal pain ED Provider Note CHIEF COMPLAINT: Abnormal labs HISTORY OF PRESENT ILLNESS: This 76 yo female patient presents to the emergency department with complaints of abnormal laboratory work. She states she was contacted by her primary care provider and advised to come to the emergency de partment. Patient complains of "not feeling well" and some nausea with some left-sided upper abdominal discomfort that has been persistent for the last several weeks. Patient has previously been diagnosed with a stone in the distal left ureter and is currently taking Cipro and Flomax. Patient denies any muscle aches or spasms. She denies chest pain or shortness of breath. She has not had any recent fevers, vomiting or diarrhea. REVIEW OF SYSTEMS: A review of systems was performed with positives and pertinent negatives listed in the history of present illness. 10 systems were reviewed and are otherwise negative. ALLERGIES: see below MEDICATIONS: see below PMH: see below SOCIAL HISTORY: see below DDx: Infection, dehydration, metabolic abnormality, hypo/hyperglycemia, electr olyte disturbance, anemia, hypoxia, cardiac sources, intracerebral event, toxicologic, neurologic, as well as other pathologies. PHYSICAL EXAM: Vital signs reviewed. General: Well-appearing 76 yo female, anxious, but in no significant distress. HEENT: No scleral icterus, PERRLA, neck supple. MMM. Cardiovascular: Regular rate and rhythm, no extra sounds. Pulmonary: Clear to auscultation bilaterally, normal work of breathing. Abdomen: Soft, nontender, nondistended, positive bowel sounds. Musculoskeletal: Atraumatic, no peripheral edema. Neurologic: Patient awake alert and oriented x 3, speech is clear. Cranial nerves II through XII are grossly intact. Moves all extremities equally. Skin: Warm, dry, no rash EMERGENCY DEPARTMENT COURSE/MDM: This patient was evaluated and appeared to be in no significant distress. IV access was obtained and laboratory work was drawn. In review of the patient's records, she was noted to have a hypercalcemia on outpatient laboratory work to 12.6. Previous calcium was 11.0. IV fluids were initiated and the patient's laboratory work in the emergency department revealed a calcium of 12.0. Of note the patient's intact parathyroid hormone level is slightly low and magnesium is markedly depleted at 1.1. Patient was given 2 g of IV magnesium. CT imaging of the abdomen pelvis was performed given the patient's abdominal discomfort and recent kidney stone. There is no apparent ureteral obstruction, there is evidence of cholelithiasis without evidence of cholecystitis. Please see formal read below. Case was discussed with the hospitalist service who will evaluate the patient for further management. MONITORING: An order for cardiac monitoring was placed and the patient is noted to be in a NSR at 69 beats per minute. RADIOLOGY: Preliminary Findings Only See Final Report For Complete Findings CT ABDOMEN & PELVIS With Contrast: The kidneys demonstrate normal enhancement without obstructive nephrolithiasis or hydronephrosis. No definite left proximal to mid ureteral stones. The subcentimeter calcifications in the left lateral pelvis and central pelvis are presumed phleboliths. However, a subtle distal left ureteral stone is difficult to entirely exclude laterally. No ureterectasis. No bladder stones. No prior imaging available. No evidence for bowel obstruction. Mild mucosal prominence of the to underdistention. Scattered diverticulosis without obvious diverticulitis. No free intraperitoneal fluid or pneumoperitoneum. The bladder is mild moderately distended without significant wall abnormalities or calcifications. Noncalcified gallstones are noted in the gallbladder. No CT evidence for gallbladder wall thickening or biliary dilatation. The liver, pancreas, spleen and adrenal glands are unremarkable. No acute osseous or significant overlying soft tissue abnormality. Radiologist: Kameron De Jesus MD Study ready at 23:23 and initial results transmitted at 23:38 EKG: sinus rhythm at 76 bpm with occasional ventricularly paced complexes and PAC. QTc 382, normal ST segments. Normal axis. 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 Stress incontinence Ureteral calculus, left Urinary incontinence Vitamin D insufficiency Surgical History H/O breast surgery right--fibroadenoma History of cryosurgery cervix History of hysterectomy History of total bilateral knee replacement Family History Mother Diabetes Hypertension Breast cancer Father Hypertension Grandfather (Maternal) Myocardial infarction Grandfather (Paternal) Myocardial infarction Brother Hypertension Unknown Hyperlipidemia Denies family history of Ovarian cancer Prostate cancer Adverse anesthesia outcome Colorectal cancer Stroke Asthma Social History Smoking Status: Never smoker Second Hand Exposure: No; Hx Alcohol Use: No Hx Substance Use: No Preferred Language: Prydeinig Communication Ability: Effective Visual Impairment: Partially Limited Hearing Ability: Use of Hearing Aid 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 Required: No Beliefs That Will Affect Care: None marital status: Current Living Situation: Spouse current occupational status: retired Feels Safe at Home: Yes Childhood Exposure to Second-Hand Smoke: No caffeine: Yes (coffee) during the past year weight has: remained stable Dental Care, Regularly: No Physical Activity Frequency: 3-4 Times per Week Seatbelt Use: always Sunscreen Use: Yes (sometimes) Do you think of yourself as: straight/heterosexual Assistive Devices: None Allergies Allergies Allergy/AdvReac Type Severity Reaction Status Date / Time amoxicillin Allergy Intermediate "I FELT Verified 09/30/21 22:56 WORSE AFTER TAKING THE MEDICATION" hydroxychloroquine Allergy Intermediate HIVES HEAD Verified 09/30/21 22:56 [From Plaquenil] TO TOE pantoprazole Allergy Intermediate "DIDN'T Verified 09/30/21 22:56 FEEL WELL AND WENT INTO A-FIB" APOLLO Inhibitors AdvReac Intermediate COUGH Verified 09/30/21 22:56 Home Meds Home Medications Medication Instructions Recorded Confirmed methotrexate sodium 2.5 mg tablet 20 mg PO .weekly tab 09/16/21 10/03/21 prednisone 5 mg tablet 7.5 mg PO DAILY tab 09/30/21 10/03/21 Previous Rx's Medication Instructions Recorded Incontinence pads. #100 ea 07/12/19 incontinence pads #60 ea 07/12/19 irbesartan 300 mg tablet 300 mg PO DAILY #90 tab 04/14/21 triamcinolone acetonide 0.1 % 1 applic TOPICAL BID PRN #80 g 04/14/21 topical cream diltiazem HCl 240 mg 240 mg PO DAILY #90 cap 06/09/21 capsule,extended release 24 hr apixaban 5 mg tablet (Eliquis) 5 mg PO BID #180 tab 07/11/21 folic acid 1 mg tablet 1 mg PO DAILY #90 tab 07/11/21 metformin 500 mg tablet,extended 500 mg PO DAILY #90 tab 07/29/21 release 24hr omeprazole 40 mg capsule,delayed 40 mg PO DAILY #30 cap 08/13/21 release tamsulosin 0.4 mg capsule 0.4 mg PO DAILY #30 cap 09/10/21 hydrocodone 5 mg-acetaminophen 325 See Rx Instructions PO Q6H PRN 09/15/21 mg tablet #240 tab MDD 8 blood-glucose meter (Blood Glucose #50 ea 09/16/21 Monitoring) Results & Data (ED) Vital Signs Vital Signs - 24 hr 09/30/21 21:01 09/30/21 22:30 09/30/21 22:42 Temperature 36.8 C 37.0 C Temperature Source Temporal Artery Scan Oral Pulse Rate 86 75 Pulse Rate [Finger] 72 Pulse Rhythm Regular Respiratory Rate 16 18 20 Respiratory Effort / Characteristics Non-Labored Spontaneous Respiratory Depth Normal Blood Pressure 173/81 H Blood Pressure [Right Arm] 162/87 H Blood Pressure Mean 111 Blood Pressure Mean [Right Arm] 112 Pulse Oximetry 94 97 97 Oxygen Delivery Method Room Air Room Air Room Air Sepsis Recent Fever Within 48 Hours No Sepsis New/Unexplained Change in Mental Status No Sepsis Action Taken by Nursing No Action Required 10/01/21 00:01 10/01/21 01:41 Temperature Temperature Source Pulse Rate Pulse Rate [Finger] 65 72 Pulse Rhythm Respiratory Rate 18 18 Respiratory Effort / Characteristics Non-Labored Spontaneous Non-Labored Spontaneous Respiratory Depth Normal Normal Blood Pressure Blood Pressure [Right Arm] 143/71 H 151/76 H Blood Pressure Mean Blood Pressure Mean [Right Arm] 95 101 Pulse Oximetry 91 95 Oxygen Delivery Method Room Air Room Air Sepsis Recent Fever Within 48 Hours Sepsis New/Unexplained Change in Mental Status Sepsis Action Taken by [facility] Medications Current Medication List: was personally reviewed by me Laboratory Data Attestation: I reviewed the patient's lab results. Result diagrams: 10/01/21 07:17 10/02/21 05:48 Lab Results 09/30/21 09/30/21 09/30/21 Range/Units 21:30 21:30 21:35 WBC 9.41 (4.8-10.8) K/uL RBC 4.09 L (4.2-5.4) M/uL Hgb 12.3 (12.0-16.0) g/dL Hct 36.9 L (37-47) % MCV 90.2 (80-100) fL MCH 30.1 (25-34) pg MCHC 33.3 (32-36) g/dL RDW Std Deviation 59.9 H (36.4-46.3) fL RDW Coeff of Angela 18.5 H (11.5-14.5) % Plt Count 216 (130-400) K/uL MPV 10.2 (7.4-10.4) fL Immature Gran % (Auto) 0.5 % Neut % (Auto) 78.1 % Lymph % (Auto) 10.3 % Citrus % (Auto) 9.6 % Eos % (Auto) 1.4 % Baso % (Auto) 0.1 % Neut # (Auto) 7.35 H (1.4-6.5) K/uL Lymph # (Auto) 0.97 L (1.2-3.4) K/uL Citrus # (Auto) 0.90 H (0.11-0.59) K/uL Eos # (Auto) 0.13 (0-0.5) K/uL Baso # (Auto) 0.01 (0-0.2) K/uL Immature Gran # (Auto) 0.05 H (0.00-0.02) K/uL Sodium (136-145) mmol/L Potassium (3.5-5.1) mmol/L Chloride (98-107) mmol/L Carbon Dioxide (21-32) mmol/L Anion Gap (3-11) BUN (6-23) mg/dl Creatinine (0.6-1.2) mg/dl Est Cr Clr Drug Dosing ml/min Est GFR ( Amer) ml/min Est GFR (Non-Af Amer) ml/min BUN/Creatinine Ratio (10-20) Glucose (70-99(Fasting)) mg/dl Calcium (8.5-10.1) mg/dl Phosphorus (2.5-4.9) mg/dl Magnesium (1.7-2.4) mg/dl Total Bilirubin (0.2-1.0) mg/dl AST (13-39) U/L ALT (7-52) U/L Alkaline Phosphatase (34-104) U/L Total Protein (6.0-8.3) gm/dl Albumin (3.4-5.0) gm/dl Globulin (2.5-4.0) gm/dl Albumin/Globulin Ratio (0.9-2) TSH (0.300-4.500) uIu/ml PTH Intact 6.4 L (12.0-88.0) pg/ml Urine Color Yellow Urine Appearance Clear (Clear) Urine pH 7.0 (4.5-7.5) Ur Specific [place] 1.008 (1.000-1.030) Urine Protein Negative (Negative) Urine Glucose (UA) Negative (Negative) Urine Ketones Negative (Negative) Urine Blood Trace H (Negative) Urine Nitrite Negative (Negative) Urine Bilirubin Negative (Negative) Urine Urobilinogen Negative (Negative) Ur Leukocyte Esterase 1+ H (Negative) Urine WBC (Auto) 1-5 (0-5) /hpf Urine RBC (Auto) 0-4 (0-4) /hpf U Hyaline Cast (Auto) 0 (0-5) /lpf U Epithel Cells (Auto) 20-30 H (0-5) /lpf Urine Bacteria (Auto) Negative (Negative) SARS-CoV-2, RNA, NAAT (NEGATIVE) 09/30/21 09/30/21 10/01/21 Range/Units 21:35 21:35 00:32 WBC (4.8-10.8) K/uL RBC (4.2-5.4) M/uL Hgb (12.0-16.0) g/dL Hct (37-47) % MCV (80-100) fL MCH (25-34) pg MCHC (32-36) g/dL RDW Std Deviation (36.4-46.3) fL RDW Coeff of Angela (11.5-14.5) % Plt Count (130-400) K/uL MPV (7.4-10.4) fL Immature Gran % (Auto) % Neut % (Auto) % Lymph % (Auto) % Citrus % (Auto) % Eos % (Auto) % Baso % (Auto) % Neut # (Auto) (1.4-6.5) K/uL Lymph # (Auto) (1.2-3.4) K/uL Citrus # (Auto) (0.11-0.59) K/uL Eos # (Auto) (0-0.5) K/uL Baso # (Auto) (0-0.2) K/uL Immature Gran # (Auto) (0.00-0.02) K/uL Sodium 132 L (136-145) mmol/L Potassium 3.7 (3.5-5.1) mmol/L Chloride 95 L (98-107) mmol/L Carbon Dioxide 27 (21-32) mmol/L Anion Gap 10 (3-11) BUN 17 (6-23) mg/dl Creatinine 0.88 (0.6-1.2) mg/dl Est Cr Clr Drug Dosing 52.8 ml/min Est GFR ( Amer) 72.9 ml/min Est GFR (Non-Af Amer) 62.9 ml/min BUN/Creatinine Ratio 19.3 (10-20) Glucose 109 H (70-99(Fasting)) mg/dl Calcium 12.0 H (8.5-10.1) mg/dl Phosphorus 3.1 (2.5-4.9) mg/dl Magnesium 1.1 L (1.7-2.4) mg/dl Total Bilirubin 0.8 (0.2-1.0) mg/dl AST 29 (13-39) U/L ALT 40 (7-52) U/L Alkaline Phosphatase 58 (34-104) U/L Total Protein 6.7 (6.0-8.3) gm/dl Albumin 3.8 (3.4-5.0) gm/dl Globulin 2.9 (2.5-4.0) gm/dl Albumin/Globulin Ratio 1.3 (0.9-2) TSH 2.229 (0.300-4.500) uIu/ml PTH Intact (12.0-88.0) pg/ml Urine Color Urine Appearance (Clear) Urine pH (4.5-7.5) Ur Specific [place] (1.000-1.030) Urine Protein (Negative) Urine Glucose (UA) (Negative) Urine Ketones (Negative) Urine Blood (Negative) Urine Nitrite (Negative) Urine Bilirubin (Negative) Urine Urobilinogen (Negative) Ur Leukocyte Esterase (Negative) Urine WBC (Auto) (0-5) /hpf Urine RBC (Auto) (0-4) /hpf U Hyaline Cast (Auto) (0-5) /lpf U Epithel Cells (Auto) (0-5) /lpf Urine Bacteria (Auto) (Negative) SARS-CoV-2, RNA, NAAT NEGATIVE (NEGATIVE) Administered Medications Discontinued Medications Hydrocodone Bitart/Acetaminophen (Hydrocodone/Acetamophen 5/325mg Tab) 1 - 2 tab PO Q6H PRN PRN Reason: severe pain Stop: 10/15/21 04:14 Last Admin: 10/02/21 07:43 Dose: 1 tab Documented by: [id number] Admin: 10/01/21 21:51 Dose: 1 tab Documented by: [id number] Admin: 10/01/21 13:32 Dose: 1 tab Documented by: [id number] Admin: 10/01/21 06:24 Dose: 2 tab Documented by: [id number] Apixaban (Apixaban 5 Mg Tablet) 5 mg PO BID RADHA Stop: 10/31/21 08:59 Last Admin: 10/02/21 09:59 Dose: 5 mg Documented by: [id number] Admin: 10/01/21 20:33 Dose: 5 mg Documented by: [id number] Admin: 10/01/21 09:17 Dose: 5 mg Documented by: [id number] Diltiazem HCl (Diltiazem Hcl 240 Mg Capcr) 240 mg PO DAILY RADHA Stop: 10/31/21 08:59 Last Admin: 10/02/21 09:59 Dose: 240 mg Documented by: [id number] Admin: 10/01/21 09:18 Dose: 240 mg Documented by: [id number] Folic Acid (Folic Acid 1 Mg Tab) 2 mg PO DAILY RADHA Stop: 10/31/21 08:59 Last Admin: 10/02/21 10:00 Dose: 2 mg Documented by: [id number] Admin: 10/01/21 09:18 Dose: 2 mg Documented by: [id number] Sodium Chloride (Nss) 500 mls @ 999 mls/hr IV .Q31M RADHA Stop: 09/30/21 22:15 Last Infusion: 09/30/21 22:20 Dose: 0 mls/hr Documented by: [id number] Admin: 09/30/21 21:45 Dose: 999 mls/hr Documented by: [id number] Sodium Chloride (Nss 1000ml) 1,000 mls @ 150 mls/hr IV .Q6H40M PENDING SALE TO [facility] Stop: 10/01/21 04:24 Last Infusion: 10/01/21 05:24 Dose: 0 mls/hr Documented by: [id number] Admin: 09/30/21 22:24 Dose: 150 mls/hr Documented by: [id number] Magnesium Sulfate/Dextrose (Magnesium Sulfate / D5w) 1 gm in 100 mls @ 200 mls/hr IV Q30M PENDING SALE TO [facility] Stop: 09/30/21 23:34 Last Infusion: 10/01/21 00:40 Dose: 0 mls/hr Documented by: [id number] Admin: 10/01/21 00:00 Dose: 200 mls/hr Documented by: [id number] Infusion: 09/30/21 23:54 Dose: 0 mls/hr Documented by: [id number] Admin: 09/30/21 23:22 Dose: 200 mls/hr Documented by: [id number] Magnesium Sulfate/Dextrose (Magnesium Sulfate / D5w) 1 gm in 100 mls @ 50 mls/hr IV Q2H PENDING SALE TO [facility] Stop: 10/01/21 08:44 Last Infusion: 10/01/21 09:31 Dose: 0 mls/hr Documented by: [id number] Admin: 10/01/21 07:02 Dose: 50 mls/hr Documented by: [id number] Infusion: 10/01/21 06:51 Dose: 50 mls/hr Documented by: [id number] Admin: 10/01/21 04:51 Dose: 50 mls/hr Documented by: [id number] Sodium Chloride (Nss 1000ml) 1,000 mls @ 80 mls/hr IV .[id number] PENDING SALE TO [facility] Stop: 10/01/21 16:44 Last Infusion: 10/01/21 17:16 Dose: 0 mls/hr Documented by: [id number] Admin: 10/01/21 04:39 Dose: 80 mls/hr Documented by: [id number] Sodium Chloride (Nss 1000ml) 1,000 mls @ 80 mls/hr IV .[id number] RADHA Stop: 10/02/21 06:29 Last Infusion: 10/02/21 06:43 Dose: 0 mls/hr Documented by: [id number] Admin: 10/01/21 18:13 Dose: 80 mls/hr Documented by: [id number] Insulin Aspart (Insulin Aspart Per Unit) 0 units SC ACHS PENDING SALE TO [facility] Stop: 10/31/21 16:29 Last Admin: 10/02/21 12:38 Dose: Not Given Documented by: [id number] Admin: 10/02/21 09:57 Dose: Not Given Documented by: [id number] Admin: 10/01/21 20:33 Dose: 1 units Documented by: [id number] Cosigned by: [id number] Admin: 10/01/21 18:13 Dose: Not Given Documented by: [id number] Ioversol (Optiray 320 100ml) 100 ml IV ONCE ONE Stop: 09/30/21 23:11 Last Admin: 09/30/21 23:10 Dose: 93 ml Documented by: [id number] Irbesartan (Irbesartan 150 Mg Tab) 300 mg PO DAILY PENDING SALE TO [facility] Stop: 10/31/21 08:59 Last Admin: 10/02/21 10:00 Dose: 300 mg Documented by: [id number] Admin: 10/01/21 11:58 Dose: 300 mg Documented by: [id number] Lidocaine (Lidocaine 5% 1 Patch) 1 patch TD QAM PENDING SALE TO [facility] Stop: 10/31/21 09:59 Last Admin: 10/02/21 10:01 Dose: Not Given Documented by: [id number] Admin: 10/01/21 11:57 Dose: 1 patch Documented by: [id number] Miscellaneous (Remove Lidoderm Patch) 1 ea N/A DAILY@2100 PENDING SALE TO [facility] Stop: 10/31/21 20:59 Last Admin: 10/01/21 20:33 Dose: 1 ea Documented by: [id number] Omeprazole (Omeprazole 20 Mg Capcr) 40 mg PO DAILY PENDING SALE TO [facility] Stop: 10/31/21 08:59 Last Admin: 10/02/21 10:00 Dose: 40 mg Documented by: [id number] Admin: 10/01/21 09:17 Dose: 40 mg Documented by: [id number] Polyethylene Glycol (Polyethylene (Miralax) 17 Gm Pack) 17 gm PO DAILY PRN PRN Reason: Constipation Stop: 10/31/21 04:14 Last Admin: 10/02/21 07:53 Dose: 17 gm Documented by: [id number] Prednisone (Prednisone 2.5 Mg Tab) 7.5 mg PO DAILY PENDING SALE TO [facility] Stop: 10/31/21 08:59 Last Admin: 10/02/21 10:01 Dose: 7.5 mg Documented by: [id number] Admin: 10/01/21 09:17 Dose: 7.5 mg Documented by: [id number] Blood Pressure Blood Pressure Findings: Elevated blood pressure Blood Pressure Disposition: further management by hospitalist Discharge Plan Visit Data Chief Complaint: Illness Stated Complaint: CALCIUM CRITICALLY HIGH, REF BY FOR IV ED Provider: Aixa Lewis Discharge Problem: Hypercalcemia, Hypomagnesemia, Anticoagulant long-term use, Cholelithiasis, Intermittent upper abdominal pain Patient Disposition: Admitted As Inpatient Discharge Instructions Interventions: ED Discharge Assessment Last Done: 10/01/21 03:44 Discharge Problem: Cholelithiasis Qualifiers: Cholelithiasis location: gallbladder Cholecystitis presence: without cholecystitis Biliary obstruction: without biliary obstruction Qualified Code(s): K80.20 - Calculus of gallbladder without cholecystitis without obstruction
[2021-10-01] MEDS: HYDROCODONE/ACETAMOPHEN 5/325MG TAB PO PRN ×3 (06:24→21:51)
--- NOTE | 2021-10-01 07:05 | XRay Report ---
XR chest 1V portable CLINICAL HISTORY: weakness. Evaluate cardiopulmonary status COMPARISON STUDY: 04/12/2021 TECHNIQUE: 1 view of the chest FINDINGS: Single frontal view of the chest demonstrates the cardiomediastinal silhouette to be within normal li mits. Permanent cardiac pacer is in place. There is mild prominence of the bronchovascular markings a t the lung bases bilaterally with no confluent alveolar opacities or air bronchograms. There is no ev idence for pleural effusion. There is no evidence for vascular congestion. There is no acute osseous pathology. IMPRESSION: 1. Mild prominence of the bronchovascular markings at the lung bases bilaterally with no confluent al veolar opacities. Follow-up PA and lateral radiographs are recommended for further evaluation. ACT 112: Negative or not required by law. Electronically signed by: Jung Flood M.D. 10/01/2021 7:04 AM
--- NOTE | 2021-10-01 07:27 | Hospitalist Progress Note ---
Date of Service October 01, 2021 Assessment & Plan (1) Hypercalcemia: Plan: Tessa Knox is a 76 yo female with PMHx of pAfib (anticoagulated on Eliquis, rate controlled w/ diltiazem), DM2, seronegative symmetrical synovitis (RS3PE), HTN, HLD, GERD, acoustic neuroma, and lumbar spinal stenosis admitted for hypercalcemia. Hypercalcemia -- improving, at 11.1 as of AM of 10/01 - Ca 12.6 on admission, translates to low end of moderate hypercalcemia (range 12.0-14.0) ; of note, Ca was 11.1 on on 09/09/21 but prior to that Ca was wnl - Work-up as follows: - On admit: Albumin wnl (3.8), TSH wnl (2.23), Phos wnl (3.1) - PTH intact is appropriately low at 6.4 ; iCal on DOA#1 elevated 1.41 - Na 132, ALP wnl - Vitamin D3 (not 1,25) wnl - CXR with prominent basilar bronchovascular markings - Primary concern in setting of appropriate PTH response, normal vitamin D3 (not 1,25), and RS3PE syndrome is malignancy until proven otherwise. PTHrP pending, as are 1,25-VitD. SPEP and UPEP not yet drawn. No obvious iatrogenic causes (e.g., RX) - Symptoms: Nephrolithiasis (last month), fatigue, intermittent nausea - Awaiting PTHrP, 1,25-VitaminD - both of which are send-out labs; if negative, would do SPEP/UPEP - Continue IVF with NSS at 80cc/hr -- no indication for calcitonin or bisphosphonate at present - Hold vitamin D supplementation for now - Will require repeat calcium level in 1-2 days following discharge Abdominal Pain -- recent dx of left sided nephrolithiasis - 1 month of feeling "off" with nausea and intermittent gnawing L-sided abdominothoracic pain worse when lying on that side, not prandially-related. - Work-up as follows: - CT A/P 09/09/21: 4mm stone in the distal left ureter. No hydronephrosis. No additional stone in either kidney. - CT A/P 09/30/21: No stone. No mass or LAD. Normal kidneys. No diverticulitis. - CRP elevated at 1.5, PCT negative, no leukocytosis, no objective fever, non-toxic appearing - Hypercalcemia noted in setting of stone above - Exam: TTP over the L ribs - diffuse, not focally tender - UA earlier on DOA: moderate blood, small LE; asymptomatic from urinary perspective - Etiology may be multifactorial; hypercalcemia + PARKER?, also +TTP over lateral ribs may be contributing. No acute processes detected in abdomen, including nephrolithiasis (may have contributed before however). Lower suspicion for PUD. - Denied urinary symptoms. Ciprofloxacin discontinued on admission. Will recheck UA given hematuria findings. - Check rib XR, attn: L side: no reported evidence of pathologic fracture or lytic lesions, calcified cartilage noted - Continue PPI Seronegative Symmetrical Synovitis (RS3PE syndrome) - Followed by rheumatology (Dr. Rivera) - RS3PE has a known and frequent association with malignancy (paraneoplastic syndrome) - range of malignancies is broad - Has been on prednisone 10mg daily; taper by 2.5mg every week until off - Therefore, continue home prednisone 7.5mg po daily at this time - Continue home methotrexate - Continue home folic acid 2mg daily - Cancer screenings: Mammogram (09/2020) - BIRADS I, unknown last colonoscopy (listed as >5 years in chart) Hypomagnesemia - Mag 1.1 on admission, normalized s/p repletion pAfib and hx of tachybrady syndrome - Currently in NSR - Continue rate control with home diltiazem - Continue home anticoagulation with Eliquis - Has pacemaker -- last interrogated 08/25/21 with stability Chronic pain w/ chronic narcotic use - Continue home regimen with hydrocodone HTN - Continue home irbesartan GERD - Continue home omeprazole DM2 - Most recent A1c 7.4% (07/25/21) - Hold home metformin - SSI used while here Dyslipidemia - Not on a statin due to patient preference per cardiology note - Continue management with diet FENGI: DM2 diet; IVF NSS 80 cc/hr DVT Ppx: Anticoagulated on Eliquis Dispo: Admit for observation on medsurg Code status: Conditional code (DNR) (2) Hypomagnesemia: (3) Intractable left upper quadrant abdominal pain: (4) Chronic narcotic use: (5) 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 I agree with the impression and plan as noted in the resident documentation. Exam 128/67, 65, 16, 36.7, 94% on room air Resting comfortably, no complaints Data Hemoglobin 11.7, platelet count 207 Sodium 133, potassium 3.6, BUN 14, creatinine 0.78 Calcium 11.1, repeat 11.4 CRP (09/30/2021) 1.83 Hypercalcemia History of seronegative symmetrical synovitis History of paroxysmal atrial fibrillation on chronic anticoagulation PTH related peptide pending Considering SPEP/UPEP If calcium improves, continued work-up could be done as outpatient If calcium continues to rise, may need to consider calcitonin or bisphosphonate Subjective NAEO. Feeling ok this morning - nervous about the calcium. Clarified abdominot horacic pain - "gnawing" quality, LUQ/epigastric and extending into "L side". Not affected prandially. Gets worse with lying on L side. Does report not great appetite with intermittent nausea. No weight loss. Chills, NS were just for one night -- approx. 6 days [employer]. No urinary symptoms. Stooling fine. Denies any breast pain or masses. Review of Systems Review of Systems: as per HPI Physical Exam Physical Exam: General: 76-year old female who is alert, oriented, and appears in no acute distress. HEENT: NCAT. - Eyes - Sclera are white, anicteric, and without injection. - Mouth - MMM - Neck - supple, no appreciable JVD Cardiac: Normal rate and regular rhythm; S1 and S2 present with no murmurs, rubs, or gallops. Pulmonary: Good respiratory effort with symmetric expansion of the chest. No use of accessory muscles. Lungs were clear to auscultation bilaterally with no crackles or wheezes. Abdominal: Normoactive bowel sounds. Abdomen was soft, nondistended, and non- tender to palpation. However, there was +TTP over the L ribs just anterior to the midaxillary line. Extremities: Upper and lower extremities are warm and well perfused. No peripheral edema in the lower extremities bilaterally Results & Data Results & Data ([facility]) Vital Signs (Past 12 Hours) Vital Signs Temp Pulse Pulse Resp BP BP Pulse Ox 10/01/21 04:16 36.7 C 69 16 143/72 H 91 10/01/21 03:34 62 14 121/55 L 94 10/01/21 02:30 61 14 128/52 L 97 10/01/21 01:41 72 18 151/76 H 95 10/01/21 00:01 65 18 143/71 H 91 09/30/21 22:42 75 20 97 09/30/21 22:30 37.0 C 72 18 162/87 H 97 09/30/21 21:01 36.8 C 86 16 173/81 H 94 Resident Activity Tracking Resident Involvement: Resident Care Provided Care Provided: Adult [facility]
--- NOTE | 2021-10-01 07:28 | CT Scan Report ---
CT OF THE ABDOMEN AND PELVIS WITH CONTRAST CLINICAL HISTORY: Left flank pain, left distal ureteral stone COMPARISON STUDY: None. TECHNIQUE: Following IV administration of 93 mL of Optiray, axial images of the abdomen and pelvis we re obtained from the lung bases to the proximal femurs. Images were reviewed in the axial, sagittal, and coronal planes. IV contrast was administered without complication. Automated exposure control wa s utilized for the study. A dose lowering technique was utilized adhering to the principles of ALARA . CT DOSE: 612.70 mGy.cm FINDINGS: Pacer leads are partially imaged. No pneumatosis, free air or portal venous gas is present. There are multiple gallstones within the gallbladder. Gallbladder is mildly distended. No pericholec ystic stranding. The liver, spleen, adrenal glands and pancreas are unremarkable. There is no biliary or pancreatic ductal dilatation. No renal, ureteral or bladder calculi are present. There is no hydr onephrosis. Pelvic calcifications represent phleboliths. Nephrograms are symmetric. The caliber and w all thickness of small and large bowel are normal. The appendix is normal. Colonic diverticulosis is noted without evidence for acute diverticulitis. No lymphadenopathy. No ascites is present. Major vas culature is patent. There is moderate plaque of the abdominal aorta. No acute fracture or suspicious lesion within the visualized skeletal structures. Multilevel degenerative changes within the lumbar s pine are present. IMPRESSION: 1. No acute process within the abdomen or pelvis. 2. No urinary calculi or hydronephrosis. 3. Cholelithiasis. 4. Colonic diverticulosis. No evidence for acute diverticulitis. ACT 112: Negative or not required by law. Electronically signed by: Rex Coto M.D. 10/01/2021 7:27 AM
[2021-10-01 07:52] LABS: Basophils # (auto) 0.01 K/uL (0-0.2); Basophils % (auto) 0.1 %; Eosinophils % (auto) 2.7 %; Hematocrit (blood only) 34.9 % (37-47); Hemoglobin 11.7 g/dL (12.0-16.0); Immature Granulocytes # (auto) 0.03 K/uL (0.00-0.02); Immature Granulocytes % (auto) 0.4 %; Lymphocytes # (auto) 0.82 K/uL (1.2-3.4); Lymphocytes % (auto) 11.2 %; Mean Corpuscular Hemoglobin 30.5 pg (25-34); Mean Corpuscular Hgb Conc 33.5 g/dL (32-36); Mean Corpuscular Volume 90.9 fL (80-100); Mean Platelet Volume 10.5 fL (7.4-10.4); Monocytes # (auto) 0.39 K/uL (0.11-0.59); Monocytes % (auto) 5.3 %; Neutrophils # (auto) 5.89 K/uL (1.4-6.5); Neutrophils % (auto) 80.3 %; Platelet Count 207 K/uL (130-400); RDW Coefficient of Variation 18.6 % (11.5-14.5); RDW Standard Deviation 61.3 fL (36.4-46.3); Red Blood Count 3.84 M/uL (4.2-5.4); White Blood Count 7.34 K/uL (4.8-10.8)
[2021-10-01 08:10] LABS: BUN Creatinine Ratio 17.9 (10-20); Calcium 11.1 mg/dl (8.5-10.1); Creatinine Clr Calc Pharmacy 59.6 ml/min; Est GFR (African American) 84.4 ml/min; Est GFR (Non-African American) 72.8 ml/min; Magnesium 1.9 mg/dl (1.7-2.4); Potassium 3.6 mmol/L (3.5-5.1)
[2021-10-01] MEDS ORDERED: CHOLECALCIFEROL 5,000 UNITS 125 MCG TAB PO SCH (09:00)
[2021-10-01] MEDS: OMEPRAZOLE 20 MG CAPCR PO SCH (09:17)
[2021-10-01] MEDS: APIXABAN 5 MG TABLET PO SCH ×2 (09:17→20:33)
[2021-10-01] MEDS: predniSONE 2.5 MG TAB PO SCH (09:17)
[2021-10-01] MEDS: FOLIC ACID 1 MG TAB PO SCH (09:18)
[2021-10-01] MEDS: dilTIAZem HCL 240 MG CAPCR PO SCH (09:18)
--- NOTE | 2021-10-01 11:43 | XRay Report ---
XR ribs LT min 2V w CXR1V CLINICAL HISTORY: Left-sided rib pain. Concern for fracture. COMPARISON: Chest radiograph July 31, 2021. FINDINGS: Dual lead left subclavian pacemaker is in place. No pneumothorax or pleural effusion is no fatimah. Lower lung interstitial thickening is noted with linear opacities. This favors atelectasis. Card iac size is normal. No acute left rib fractures are identified. No consolidation to suggest pneumonia . IMPRESSION: 1. No pneumothorax. No acute left rib fractures. 2. Linear left lung opacities with interstitial thickening. This favors atelectasis. ACT 112: Negative or not required by law. Electronically signed by: Rex Coto M.D. 10/01/2021 11:42 AM
[2021-10-01] MEDS: LIDOCAINE 5% 1 PATCH TD SCH (11:57)
[2021-10-01] MEDS: IRBESARTAN 150 MG TAB PO SCH (11:58)
[2021-10-01] MEDS ORDERED: GLUCOSE 10 TABS/TUBE PO PRN (12:38)
[2021-10-01] MEDS ORDERED: DEXTROSE 50% 50 ML SYRINGE IV PRN (12:38)
[2021-10-01] MEDS ORDERED: GLUCAGON FOR INJ 1 MG VIAL SQ PRN (12:38)
[2021-10-01] MEDS ORDERED: GLUCOSE 40% GEL 15 GM TUBE PO PRN (12:38)
[2021-10-01] MEDS ORDERED: CARBOHYDRATES FOR HYPOGLYCEMIA PO PRN (12:38)
--- NOTE | 2021-10-01 14:49 | Electrocardiogram Report ---
Test Reason : Blood Pressure : / mmHG Vent. Rate : 076 BPM Atrial Rate : 076 BPM P-R Int : 160 ms QRS Dur : 082 ms QT Int : 340 ms P-R-T Axes : 020 -02 020 degrees QTc Int : 382 ms Sinus rhythm with occasional PACs Abnormal ECG Confirmed by Farhat Francisco ([id number]) on 10/01/2021 2:49:02 PM Referred By: Ilya Yu Confirmed By:Jimbo Francisco
[2021-10-01] MEDS: INSULIN ASPART PER UNIT SC SCH ×2 (18:13→20:33)
--- NOTE | 2021-10-02 06:47 | Hospitalist Progress Note ---
Date of Service October 02, 2021 Assessment & Plan (1) Hypercalcemia: Plan: Tessa Knox is a 76 yo female with PMHx of pAfib (anticoagulated on Eliquis, rate controlled w/ diltiazem), DM2, seronegative symmetrical synovitis (RS3PE), HTN, HLD, GERD, acoustic neuroma, and lumbar spinal stenosis admitted for hypercalcemia. Hypercalcemia -- improving, at 11.1 as of AM of 10/01 - Ca 12.6 on admission, translates to low end of moderate hypercalcemia (range 12.0-14.0) ; of note, Ca was 11.1 on on 09/09/21 but prior to that Ca was wnl - Work-up as follows: - On admit: Albumin wnl (3.8), TSH wnl (2.23), Phos wnl (3.1) - PTH intact is appropriately low at 6.4 ; iCal on DOA#1 elevated 1.41 - Na 132, ALP wnl - Vitamin D3 (not 1,25) wnl - CXR with prominent basilar bronchovascular markings - Primary concern in setting of appropriate PTH response, normal vitamin D3 (not 1,25), and RS3PE syndrome is malignancy until proven otherwise. PTHrP pending, as are 1,25-VitD. SPEP and UPEP not yet drawn. No obvious iatrogenic causes (e.g., RX) - Symptoms: Nephrolithiasis (last month), fatigue, intermittent nausea - Awaiting PTHrP, 1,25-VitaminD - both of which are send-out labs; if negative, would do SPEP/UPEP - Continue IVF with NSS at 80cc/hr -- no indication for calcitonin or bisphosphonate at present - Hold vitamin D supplementation for now Abdominal Pain -- recent dx of left sided nephrolithiasis - 1 month of feeling "off" with nausea and intermittent gnawing L-sided abdominothoracic pain worse when lying on that side, not prandially-related. - Work-up as follows: - CT A/P 09/09/21: 4mm stone in the distal left ureter. No hydronephrosis. No additional stone in either kidney. - CT A/P 09/30/21: No stone. No mass or LAD. Normal kidneys. No diverticulitis. - CRP elevated at 1.5, PCT negative, no leukocytosis, no objective fever, non-toxic appearing - Hypercalcemia noted in setting of stone above - Exam: TTP over the L ribs - diffuse, not focally tender - UA earlier on DOA: moderate blood, small LE; asymptomatic from urinary perspective - Etiology may be multifactorial; hypercalcemia + PARKER?, also +TTP over lateral ribs may be contributing. No acute processes detected in abdomen, including nephrolithiasis (may have contributed before however). Lower suspicion for PUD. - Denied urinary symptoms. Ciprofloxacin discontinued on admission. Will recheck UA given hematuria findings. - Check rib XR, attn: L side: no reported evidence of pathologic fracture or lytic lesions, calcified cartilage noted - Continue PPI Seronegative Symmetrical Synovitis (RS3PE syndrome) - Followed by rheumatology (Dr. Rivera) - RS3PE has a known and frequent association with malignancy (paraneoplastic syndrome) - range of malignancies is broad - Has been on prednisone 10mg daily; taper by 2.5mg every week until off - Therefore, continue home prednisone 7.5mg po daily at this time - Continue home methotrexate - Continue home folic acid 2mg daily - Cancer screenings: Mammogram (09/2020) - BIRADS I, unknown last colonoscopy (listed as >5 years in chart) Hypomagnesemia - Mag 1.1 on admission, normalized s/p repletion pAfib and hx of tachybrady syndrome - Currently in NSR - Continue rate control with home diltiazem - Continue home anticoagulation with Eliquis - Has pacemaker -- last interrogated 08/25/21 with stability Chronic pain w/ chronic narcotic use - Continue home regimen with hydrocodone HTN - Continue home irbesartan GERD - Continue home omeprazole DM2 - Most recent A1c 7.4% (07/25/21) - Hold home metformin - SSI used while here Dyslipidemia - Not on a statin due to patient preference per cardiology note - Continue management with diet FENGI: DM2 diet; IVF NSS 80 cc/hr DVT Ppx: Anticoagulated on Eliquis Dispo: Admit for observation on medsurg Code status: Conditional code (DNR) (2) Hypomagnesemia: (3) Intractable left upper quadrant abdominal pain: (4) Chronic narcotic use: (5) 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 HEENT: NCAT. - Eyes - Sclera are white, anicteric, and without injection. - Mouth - MMM - Neck - supple, no appreciable JVD Cardiac: Normal rate and regular rhythm; S1 and S2 present with no murmurs, rubs, or gallops. Pulmonary: Good respiratory effort with symmetric expansion of the chest. No use of accessory muscles. Lungs were clear to auscultation bilaterally with no crackles or wheezes. Abdominal: Normoactive bowel sounds. Abdomen was soft, nondistended, and non- tender to palpation. However, there was +TTP over the L ribs just anterior to the midaxillary line. Extremities: Upper and lower extremities are warm and well perfused. No peripheral edema in the lower extremities bilaterally Results & Data Results & Data ([facility]) Vital Signs (Past 12 Hours) Vital Signs Temp Pulse Resp BP Pulse Ox 10/02/21 06:28 36.9 C 69 16 138/66 94 10/01/21 22:55 37.0 C 72 16 130/67 97
[2021-10-02 07:02] LABS: Albumin Globulin Ratio 1.4 (0.9-2); Albumin Level 3.3 gm/dl (3.4-5.0); BUN Creatinine Ratio 24.1 (10-20); Bilirubin,Total 1.1 mg/dl (0.2-1.0); Calcium 10.8 mg/dl (8.5-10.1); Creatinine Clr Calc Pharmacy 58.9 ml/min; Est GFR (African American) 83.1 ml/min; Est GFR (Non-African American) 71.7 ml/min; Globulin 2.4 gm/dl (2.5-4.0); Magnesium 1.4 mg/dl (1.7-2.4); Potassium 3.9 mmol/L (3.5-5.1); Total Protein 5.7 gm/dl (6.0-8.3)
[2021-10-02] MEDS: HYDROCODONE/ACETAMOPHEN 5/325MG TAB PO PRN (07:43)
--- NOTE | 2021-10-02 09:16 | Discharge Summary ---
Date of Service October 02, 2021 Admission HPI Per Admitting Provider Tessa Knox is a 76 yo female with PMHx of pAfib (anticoagulated on Eliquis, rate controlled w/ diltiazem), DM2, seronegative symmetrical synovitis (RS3PE), HTN, HLD, GERD, acoustic neuroma, and lumbar spinal stenosis who presented to the ED due to abnormal outpatient labs. Patient states that for the past 1 month, she has been experiencing left sided abdominal pain. Patient initially diagnosed with nephrolithiasis on CT abd/pelvis 09/09/21 and has been straining her urine without known passage of the stone. Patient has continued to have abd pain w/ associated nausea, chills, weakness, and 1 week hx of generalized HO so she underwent re-evaluation with PCP today. UA in office with 2+ blood and 1+ leukocytes; she was started on cipro. Labs were also ordered and patient was notified of a high calcium level (Ca 12.0) so she was sent to the ER for further evaluation. Patient reports overall pain at a 5/10. She has been taking Tylenol prn at home with some relief. Patient also reports taking hydrocodone 5-325mg q6h since Fall 2020 (when diagnosed with RS3PE due to hand pain) but has more recently been trying to decrease frequency to q8h. Patient does report hx of GERD which is controlled by omeprazole; she does not use Tums at home. She does drink ~24 oz. of milk daily. No known hx of thyroid disease. Patient denies vomiting, fever, syncope, lightheadedness, dizziness, numbness/tingling, CP, SOB, edema, sinus pain, sinus congestion, rhinorrhea, cough, sore throat, or any other symptoms. No recent falls or trauma. Admission Exam Per Admitting Provider GENERAL: No acute distress. Well developed and well nourished. Vital signs reviewed as above. EYES: PERRLA. EOMI. Anicteric sclerae. HENT: Moist mucous membranes. No pharyngeal erythema or exudates. No cervical lymphadenopathy. RESPIRATORY: Clear to auscultation bilaterally. No wheezing, rales, or rhonchi. CARDIOVASCULAR: Regular rate and rhythm. + ANALI. ABDOMEN: Soft, non-tender and non-distended. Normal bowel sounds. EXTREMITIES: No edema. Non-tender. SKIN: Warm, dry. NEUROLOGIC: A/O x3. No focal neurological deficits. CN II-XII grossly intact. PSYCHIATRIC: Cooperative. Appropriate mood and affect. Principal Diagnosis hypercalcemia, etiology unknown currently Discharge Exam General: 76-year old female who is alert, oriented, and appears in no acute distress. HEENT: NCAT. - Eyes - Sclera are white, anicteric, and without injection. - Mouth - MMM - Neck - supple, no appreciable JVD Cardiac: Normal rate and regular rhythm; S1 and S2 present with no murmurs, rubs, or gallops. Pulmonary: Good respiratory effort with symmetric expansion of the chest. No use of accessory muscles. Lungs were clear to auscultation bilaterally with no crackles or wheezes. Abdominal: Normoactive bowel sounds. Abdomen was soft, nondistended, and non- tender to palpation. Extremities: Upper and lower extremities are warm and well perfused. No peripheral edema in the lower extremities bilaterally Discharge Data Allergies Allergy/AdvReac Type Severity Reaction Status Date / Time amoxicillin Allergy Intermediate "I FELT Verified 09/30/21 22:56 WORSE AFTER TAKING THE MEDICATION" hydroxychloroquine Allergy Intermediate HIVES HEAD Verified 09/30/21 22:56 [From Plaquenil] TO TOE pantoprazole Allergy Intermediate "DIDN'T Verified 09/30/21 22:56 FEEL WELL AND WENT INTO A-FIB" APOLLO Inhibitors AdvReac Intermediate COUGH Verified 09/30/21 22:56 Consultations 10/01/21 06:04 ED Decision to Admit Stat Ordered Studies 09/30/21 21:36 CT OF THE ABDOMEN AND PELVIS WITH CONTRAST CLINICAL HISTORY: Left flank pain, left distal ureteral stone COMPARISON STUDY: None. TECHNIQUE: Following IV administration of 93 mL of Optiray, axial images of the abdomen and pelvis were obtained from the lung bases to the proximal femurs. Images were reviewed in the axial, sagittal, and coronal planes. IV contrast was administered without complication. Automated exposure control was utilized for the study. A dose lowering technique was utilized adhering to the principles of ALARA. CT DOSE: 612.70 mGy.cm FINDINGS: Pacer leads are partially imaged. No pneumatosis, free air or portal venous gas is present. There are multiple gallstones within the gallbladder. Gallbladder is mildly distended. No pericholecystic stranding. The liver, spleen, adrenal glands and pancreas are unremarkable. There is no biliary or pancreatic ductal dilatation. No renal, ureteral or bladder calculi are present. There is no hydronephrosis. Pelvic calcifications represent phleboliths. Nephrograms are symmetric. The caliber and wall thickness of small and large bowel are normal. The appendix is normal. Colonic diverticulosis is noted without evidence for acute diverticulitis. No lymphadenopathy. No ascites is present. Major vasculature is patent. There is moderate plaque of the abdominal aorta. No acute fracture or suspicious lesion within the visualized skeletal structures. Multilevel degenerative changes within the lumbar spine are present. IMPRESSION: 1. No acute process within the abdomen or pelvis. 2. No urinary calculi or hydronephrosis. 3. Cholelithiasis. 4. Colonic diverticulosis. No evidence for acute diverticulitis. Hospital Course (1) Hypercalcemia: Tessa Knox is a 76 yo female with PMHx of pAfib (anticoagulated on Eliquis, rate controlled w/ diltiazem), DM2, seronegative symmetrical synovitis (RS3PE), HTN, HLD, GERD, acoustic neuroma, and lumbar spinal stenosis admitted for hypercalcemia. The etiology of her hypercalcemia is currently unknown, and work-up is pending. Hypercalcemia -- improving, at 11.1 as of AM of 10/01 - Ca 12.6 on admission, translates to low end of moderate hypercalcemia (range 12.0-14.0) ; downtrended to 10.8 prior to discharge following 3L+ of fluid resuscitation - Work-up as follows: - On admit: Albumin wnl (3.8), TSH wnl (2.23), Phos wnl (3.1) - PTH intact is appropriately low at 6.4 ; iCal on DOA#1 elevated 1.41 - Na 132, ALP wnl - Vitamin D3 (not 1,25) wnl - CXR with prominent basilar bronchovascular markings -- consider f/u CXR - Primary concern in setting of appropriate PTH response, normal vitamin D3 (not 1,25), and RS3PE syndrome is malignancy until proven otherwise. PTHrP and 1,25- VitD are pending. SPEP and UPEP not yet drawn. No obvious iatrogenic or dietary causes. - Symptoms: Nephrolithiasis (last month), fatigue, intermittent nausea - Awaiting PTHrP, 1,25-VitaminD - both of which are send-out labs; if negative, would do SPEP/UPEP - Consider addition of bisphosphonate if worsening - Hold home vitamin D supplementation at discharge - Repeat BMP, Ca, Phos levels to be drawn on Wednesday following discharge (orders provided prior to d/c) Abdominal Pain -- recent dx of left sided nephrolithiasis - 1 month of feeling "off" with nausea and intermittent gnawing L-sided abdominothoracic pain worse when lying on that side, not prandially-related. - Work-up as follows: - CT A/P 09/09/21: 4mm stone in the distal left ureter. No hydronephrosis. No additional stone in either kidney. - CT A/P 09/30/21: No stone. No mass or LAD. Normal kidneys. No diverticulitis. - CRP elevated at 1.5, PCT negative, no leukocytosis, no objective fever, non-toxic appearing - Hypercalcemia noted in setting of stone above - Exam: TTP over the L ribs - diffuse, not focally tender - UA earlier on DOA: moderate blood, small LE; asymptomatic from urinary perspective - Etiology likely multifactorial; hypercalcemia + PARKER?, also +TTP over lateral ribs may be contributing. No acute processes detected in abdomen, including nephrolithiasis (which may have contributed before however). Lower suspicion for PUD. - Denied urinary symptoms. Ciprofloxacin discontinued on admission. Will recheck UA given hematuria findings. - Check rib XR, attn: L side: no reported evidence of pathologic fracture or lytic lesions, calcified cartilage noted - Continue PPI Seronegative Symmetrical Synovitis (RS3PE syndrome) - Followed by rheumatology (Dr. Rivera) - RS3PE has a known and frequent association with malignancy (paraneoplastic syndrome) - range of malignancies is broad - Has been on prednisone 10mg daily; taper by 2.5mg every week until off - Therefore, continue home prednisone 7.5mg po daily at this time - Continue home methotrexate - Continue home folic acid 2mg daily - Cancer screenings: Mammogram (09/2020) - BIRADS I, unknown last colonoscopy (listed as >5 years in chart) Hypomagnesemia - Mag 1.1 on admission, normalized s/p repletion pAfib and hx of tachybrady syndrome - Currently in NSR - Continue rate control with home diltiazem - Continue home anticoagulation with Eliquis - Has pacemaker -- last interrogated 08/25/21 with stability Chronic pain w/ chronic narcotic use - Continue home regimen with hydrocodone HTN - Continue home irbesartan GERD - Continue home omeprazole DM2 - Most recent A1c 7.4% (07/25/21) - Hold home metformin - SSI used while here Dyslipidemia - Not on a statin due to patient preference per cardiology note - Continue management with diet Code status: Conditional code (DNI) (2) Hypomagnesemia: (3) Intractable left upper quadrant abdominal pain: (4) Chronic narcotic use: (5) 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 edema): (6) Anticoagulant long-term use: (7) Pacemaker: (8) Gastroesophageal reflux disease: (9) Hyperlipidemia: (10) Benign essential hypertension: (11) Paroxysmal atrial fibrillation: Total Time Total Time Spent Total Time Spent (In Minutes): 30 Discharge Plan Discharge Items Patient Disposition: Home - Self-Care Reason For Visit: HYPERCALCEMIA Discharge Diagnosis: hypercalcemia Activity: Per Instructions section Non-emergency contact: Primary Care Provider Call non-emergency contact if: your symptoms worsen, your pain is unusual for you and your temperature is above 101 Follow-up/Referrals: Ilya Yu MD [Primary Care Provider] - 10/07/21 11:30 am Diet: Carb Consistent or DM2 Ambulatory Orders: Basic Metabolic Panel (Routine) Timeframe: 1 Day Location: Determined by Patient Ordered By: Ac Dozier Calcium (Routine) Timeframe: 1 Day Location: Determined by Patient Ordered By: Ac Dozier Phosphorus (Routine) Timeframe: 1 Day Location: Determined by Patient Ordered By: Ac Dozier Addtl Attending Provider Instructions: You were seen in [facility] for evaluation of high blood calcium. Upon your arrival, you underwent several tests to determine the cause of this laboratory abnormality. Many of the tests (vitamin D, hormone levels, other bone markers) returns normal. Because of this, several tests were sent out to further clarify why your calcium might be high. It will take several days for the results to return; Dr. Yu will have access to these labs to follow- up on them. Thankfully, with intravenous fluids, your calcium level came down very nicely. While not normal at time of discharge, it is safetly in the range to continue work-up with your primary care doctor. While you are here, we also discussed your abdominal pain more. It seems to be coming from the left rib area, and may be associated with nausea. At this time, primarily suspect that your high blood calcium was contributing to your nausea and fatigue. We expect that with improvement at this level, hopefully your symptoms will improve to. However, it is important that the cause of your high blood calcium is identified to prevent such occurrence from happening again. Please note the following medication additions/changes/deletions upon discharge: - STOP ciprofloxacin - STOP vitamin D supplementation Please follow-up with your primary care physician within the next 7 days to review this visit. Please also obtain a repeat blood test within the next 4-5 days to check your calcium level, which will be forwarded to Dr. Yu. Please also ensure you are drinking between 2-3 L of water per day for the next week+. In the interim, if you experience worsening fatigue, fever, chills, intractable nausea, chest pain, palpitations, shortness of breath, or other worrisome symptoms, please seek medical attention immediately. If your symptoms are severe, please go to the ER. Is a pleasure for caring for you while you are here, we wish you all the best in your recovery. Pending Studies at Discharge: Yes Studies:: 1,25-Vitamin D levels, PTHrP level Stand-Alone Forms: My [facility], Smoking Cessation Medications and DC Order Prescriptions: Continued irbesartan 300 mg tablet 300 mg PO DAILY Qty: 90 RF: 3 diltiazem HCl 240 mg capsule,extended release 24hr 240 mg PO DAILY Qty: 90 RF: 3 folic acid 1 mg tablet 1 mg PO DAILY Qty: 90 RF: 3 Eliquis 5 mg tablet 5 mg PO BID Qty: 180 RF: 3 metformin 500 mg tablet extended release 24hr 500 mg PO DAILY Qty: 90 RF: 3 tamsulosin 0.4 mg capsule 0.4 mg PO DAILY Qty: 30 RF: 2 hydrocodone-acetaminophen 5-325 mg tablet See Rx Instructions PO Q6H MDD 8 PRN (Reason: severe pain) Qty: 240 RF: 0 omeprazole 40 mg capsule,delayed release(DR/EC) 40 mg PO DAILY Qty: 30 RF: 5 prednisone 5 mg tablet 7.5 mg PO DAILY RF: 0 (DME) Incontinence pads. daytime Qty: 100 RF: 11 (DME) incontinence pads nighttime Qty: 60 RF: 11 triamcinolone acetonide 0.1 % cream 1 applic topical BID PRN (Reason: skin irritation) Qty: 80 RF: 3 (DME) blood-glucose meter [Blood Glucose Monitoring] Kit See Rx Instructions .Route Qty: 50 RF: 11 methotrexate sodium 2.5 mg tablet 20 mg PO .weekly RF: 0 Discontinued ciprofloxacin HCl [Cipro] 500 mg tablet 500 mg PO BID 10 Days Qty: 20 RF: 0 cholecalciferol (vitamin D3) 125 mcg (5,000 unit) capsule 125 mcg PO DAILY RF: 0 Discharge Orders: Discharge Order (Routine); Ordered 10/02/21 Ordered By: Ac Travis/Other Patient Handouts: Abdominal Pain, Hypercalcemia Dc, Hypomagnesemia Ch Dc Admission Data Admit Date/Time: 10/01/21 02:28 Attending Provider: Michael Aviles Admit Provider: Nemo Levine Primary Care Provider: Ilya Yu Other Providers: Franca Garza Other Interventions: Discharge Summary Assessment (RN) Last Done: 10/02/21 13:12 Supervising Physician Co-Signing Physician Notes I saw and examined the patient concurrent with the resident physician. I agree with the impression and plan as noted in the resident documentation. Exam 138/66, 69, 16, 36.9, 94% on room air She is seated in bed. She has no complaints. Heart regular Lungs clear with nonlabored respirations Data Sodium 136, potassium 3.9, BUN 19, creatinine 0.79. Calcium 10.8, ionized calcium 1.47, magnesium 1.4, total bilirubin 1.1. PTH related peptide is pending Hypercalcemia History of seronegative symmetrical synovitis History of paroxysmal atrial fibrillation on chronic anticoagulation PTH related peptide pending Consider SPEP/UPEP Recheck BMP on Wednesday Outpatient follow-up Discussed signs or symptoms to which to return to the emergency department. Resident Activity Tracking Resident Involvement: Resident Care Provided Care Provided: Adult Hospital Medicine
[2021-10-02] MEDS: INSULIN ASPART PER UNIT SC SCH ×2 (09:57→12:38)
[2021-10-02] MEDS: APIXABAN 5 MG TABLET PO SCH (09:59)
[2021-10-02] MEDS: dilTIAZem HCL 240 MG CAPCR PO SCH (09:59)
[2021-10-02] MEDS: FOLIC ACID 1 MG TAB PO SCH (10:00)
[2021-10-02] MEDS: OMEPRAZOLE 20 MG CAPCR PO SCH (10:00)
[2021-10-02] MEDS: IRBESARTAN 150 MG TAB PO SCH (10:00)
[2021-10-02] MEDS: LIDOCAINE 5% 1 PATCH TD SCH (10:01)
[2021-10-02] MEDS: predniSONE 2.5 MG TAB PO SCH (10:01)
[2021-10-06 01:47] LABS: Vitamin D 1,25 91 pg/mL (18-72); Vitamin D3,1,25 91 pg/mL
[2021-10-07] MEDS ORDERED: metHOTREXate sodium 2.5 MG TAB PO SCH ×2 (09:00→21:00)
== END 2021-10-02 14:41 | disposition home or self-care (01) ==
LOC: ED 20:47 → 3N 20:47 → SUATTDRO 10-01 02:28 → 3N 10-01 03:44

== ENCOUNTER 2021-10-14 12:05 | Inpatient (IN) ==
--- NOTE | 2021-10-14 13:19 | Emergency Department Note ---
History of Present Illness General Chief complaint: Illness Stated complaint: FEVER, COUGH, ABDOMINAL PAIN Time Seen by Provider: 10/14/21 12:57 History of Present Illness Provider complaint: Fever cough abdominal pain shortness of breath Onset (ago): day(s) 2 Location: chest and abdomen Radiation: non-radiation Severity: moderate Maximum Pain Intensity: 9 Current Pain Intensity: 8 Quality: + stabbing, + aching, + sharp and + dull Exacerbated By: + none Associated symptoms: + cough, + fever/chills, + nausea/vomiting and + shortness of breath; no headaches 68-year-old female presents emergency department for fever cough abdominal pain shortness of breath. Patient states her symptoms have gone out for some time but she states her cough got significant worse over the last 2 days and she states she developed a fever yesterday. T-max 100.5. She also reports nausea. She reports no vomiting. She reports no hematemesis coffee-ground emesis or bilious vomiting. No melena or hematochezia. No hematuria dysuria. She reports she has been having abdominal pain in the left lower quadrant for the last 3 weeks he has had multiple tests on but no exact cause of the left lower quadrant pain could be determined. Patient states she has had a recent CT scan. Home Medications Medication Instructions Recorded Confirmed Type Incontinence pads. #100 ea 07/12/19 10/07/21 Rx incontinence pads #60 ea 07/12/19 10/07/21 Rx irbesartan 300 mg tablet 300 mg PO DAILY #90 tab 04/14/21 10/14/21 Rx triamcinolone acetonide 0.1 % 1 applic TOPICAL BID PRN #80 g 04/14/21 10/14/21 Rx topical cream diltiazem HCl 240 mg 240 mg PO DAILY #90 cap 06/09/21 10/14/21 Rx capsule,extended release 24 hr apixaban 5 mg tablet (Eliquis) 5 mg PO BID #180 tab 07/11/21 10/14/21 Rx folic acid 1 mg tablet 1 mg PO DAILY #90 tab 07/11/21 10/14/21 Rx metformin 500 mg tablet,extended 500 mg PO DAILY #90 tab 07/29/21 10/14/21 Rx release 24hr omeprazole 40 mg capsule,delayed 40 mg PO DAILY #30 cap 08/13/21 10/14/21 Rx release hydrocodone 5 mg-acetaminophen 325 See Rx Instructions PO Q6H PRN 09/15/21 10/14/21 Rx mg tablet #240 tab MDD 8 blood-glucose meter (Blood Glucose #50 ea 09/16/21 10/07/21 Rx Monitoring) methotrexate sodium 2.5 mg tablet 20 mg PO .weekly tab 09/16/21 10/14/21 History prednisone 5 mg tablet 7.5 mg PO DAILY tab 09/30/21 10/14/21 History red yeast rice 600 mg capsule 1,200 mg PO DAILY 10/14/21 10/14/21 History tamsulosin 0.4 mg capsule 0.4 mg PO DAILY 10/14/21 10/14/21 History Allergies Allergy/AdvReac Type Severity Reaction Status Date / Time amoxicillin Allergy Intermediate "I FELT Verified 10/14/21 13:42 WORSE AFTER TAKING THE MEDICATION" hydroxychloroquine Allergy Intermediate HIVES HEAD Verified 10/14/21 13:42 [From Plaquenil] TO TOE pantoprazole Allergy Intermediate "DIDN'T Verified 10/14/21 13:42 FEEL WELL AND WENT INTO A-FIB" APOLLO Inhibitors AdvReac Intermediate COUGH Verified 10/14/21 13:42 Past Med/Surg History Medical History Benign essential hypertension Chronic low back pain Chronic narcotic use Chronic rhinitis Cystocele Diverticulosis Drug-induced diabetes mellitus Fibroadenoma of breast Gastroesophageal reflux disease Hearing loss Hyperlipidemia Hypokalemia Hypomagnesemia Hyponatremia Insomnia, persistent Left acoustic neuroma Left asymmetrical SNHL Left flank pain Leukocytosis Lumbar spinal stenosis Multiple thyroid nodules Osteopenia Paroxysmal atrial fibrillation Prediabetes Rectocele 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 Stress incontinence Ureteral calculus, left Urinary incontinence Vitamin D insufficiency Surgical History H/O breast surgery right--fibroadenoma History of cryosurgery cervix History of hysterectomy History of total bilateral knee replacement Family History Mother Diabetes Hypertension Breast cancer Father Hypertension Grandfather (Maternal) Myocardial infarction Grandfather (Paternal) Myocardial infarction Brother Hypertension Unknown Hyperlipidemia Denies family history of Ovarian cancer Prostate cancer Adverse anesthesia outcome Colorectal cancer Stroke Asthma Social History Smoking Status: Never smoker Second Hand Exposure: No; Hx Alcohol Use: No Hx Substance Use: No Preferred Language: Irish Communication Ability: Effective Visual Impairment: Partially Limited Hearing Ability: Use of Hearing Aid Facilities Maintenance Worker Required: No Beliefs That Will Affect Care: None marital status: Current Living Situation: Spouse current occupational status: retired Feels Safe at Home: Yes Childhood Exposure to Second-Hand Smoke: No caffeine: Yes (coffee) during the past year weight has: remained stable Dental Care, Regularly: No Physical Activity Frequency: 3-4 Times per Week Seatbelt Use: always Sunscreen Use: Yes (sometimes) Do you think of yourself as: straight/heterosexual Assistive Devices: None Review of Systems A total of 10 systems reviewed and were otherwise negative Physical Exam Vital Signs Vital Signs - 24 hr 10/14/21 12:14 10/14/21 13:41 Temperature 36.5 C Temperature Source Temporal Artery Scan Pulse Rate 79 Pulse Rate [Left Radial] 80 Respiratory Rate 20 20 Respiratory Effort / Characteristics Non-Labored Non-Labored Respiratory Depth Normal Normal Blood Pressure 145/64 H Blood Pressure [Left Arm] 178/86 H Blood Pressure Mean 91 Blood Pressure Mean [Left Arm] 116 Blood Pressure Position Sitting Blood Pressure Position [Left Arm] Lying Pulse Oximetry 83 L 98 Oxygen Delivery Method Room Air Nasal Cannula Oxygen Flow Rate 4 Sepsis Recent Fever Within 48 Hours No Sepsis New/Unexplained Change in Mental Status N/A Sepsis Action Taken by Nursing No Action Required Physical Exam GENERAL: She is oriented to person, place, and time. She appears well-developed and well-nourished. She does not appear distressed. HENT: Exam performed. -Head: Normocephalic and atraumatic. -Right Ear: External ear normal. No mastoid tenderness. -Left Ear: External ear normal. No mastoid tenderness. -Mouth/Throat: The oropharynx is clear and moist. No trismus in the jaw. No dental abscesses or uvula swelling. No oropharyngeal exudate or tonsillar abscesses. EYES: Conjunctivae and EOM are normal. Pupils are equal, round, and reactive to light. Right eye exhibits no discharge. Left eye exhibits no discharge. No scleral icterus. NECK: Normal range of motion. Neck supple. No JVD present. No spinous process tenderness present. No carotid bruit present. No rigidity. No tracheal deviation and normal range of motion present. No Brudzinski's sign and no Kernig's sign noted. CV: Normal rate, regular rhythm, normal heart sounds and intact distal pulses. There is no peripheral edema. Palpable radial pulses bue. PULM/CHEST: Effort normal and breath sounds normal. No respiratory distress. No stridor. She has no wheezes. She has no rales. -Chest Wall: She exhibits no tenderness. ABD: The abdomen is soft. Bowel sounds are normal. She has no distension. No mass is present. There is tenderness to palpation of the left lower quadrant There is no rebound, no guarding, no Guido's sign and no tenderness at McBurney's point. Rovsig negative MUSC/SKEL: Normal range of motion. There is no peripheral edema, tenderness or deformity. LYMPH: No cervical adenopathy. NEURO: She is alert and oriented to person, place, and time. She has normal strength. No cranial nerve deficit or sensory deficit. Coordination and gait normal. GCS eye subscore is 4. GCS verbal subscore is 5. GCS motor subscore is 6. Cerebellar tests wnl. SKIN: Skin is warm and dry. She is not diaphoretic. PSYCH: She has a normal mood and affect. Behavior is normal. Judgment and thought content normal. Course Course 1257: The patient was evaluated in room A12. A complete history and physical exam was performed Cardiac monitoring: An order was placed for continuous cardiac monitoring. The monitor shows a rate of 80 with sinus rhythm Patient was found to be hypoxic on room air and placed on supplemental oxygen via nasal cannula which improved her oxygen saturation. 1420: Vital signs stable on supplemental oxygen via nasal cannula. Chest x-ray shows multifocal pneumonia very concerning for COVID-like appearance. Decadron 6 mg IV push ordered for the patient. 1454: Vital signs stable on supplemental oxygen via nasal cannula. Labs show white blood cell count of 11.7. Coagulation studies within normal limits. Venous blood gas within normal limits. Calcium elevated at 12.4. Magnesium low at 1.2. This is thought that the patient's abdominal pain could be due to to her hypercalcemia. Patient will be treated with IV fluids for that. Magnesium will be repleted beginning in the emergency department. Patient is COVID-negati ve on Cepheid swab. Patient be treated with broad-spectrum antibiotics cefepime and vancomycin. Blood cultures will be ordered. [facility] Administered Medications Sodium Chloride (Nss 1000ml) 1,000 mls @ 125 mls/hr IV .Q8H RADHA Stop: 11/13/21 14:29 Last Admin: 10/14/21 14:52 Dose: 125 mls/hr Documented by: [id number] Magnesium Sulfate/Dextrose (Magnesium Sulfate / D5w) 1 gm in 100 mls @ 100 mls/hr IV NOW STA Stop: 10/14/21 15:29 Last Admin: 10/14/21 14:52 Dose: 100 mls/hr Documented by: [id number] Discontinued Medications Cefepime HCl (Maxipime) 2,000 mg in 20 mls @ 5 mls/min IV NOW STA; Protocol Stop: 10/14/21 14:44 Last Admin: 10/14/21 14:52 Dose: 5 mls/min Documented by: [id number] Critical Care Time Critical Care Time: Yes Total Critical Care Time: 78 I have personally spent greater than 78 minutes of critical care time in the direct management of this patient. This includes bedside care, interpretation of diagnostic studies, and testing, discussion with consultants, patient, and family members, and other required patient management activities. This 78 minutes is in excess of all separately billable procedures. Medical Decision Making Laboratory Data Result diagrams: 10/14/21 13:13 10/14/21 13:13 Lab Results 10/14/21 10/14/21 10/14/21 Range/Units 13:13 13:13 13:13 WBC 11.76 H (4.8-10.8) K/uL RBC 4.16 L (4.2-5.4) M/uL Hgb 13.2 (12.0-16.0) g/dL Hct 38.6 (37-47) % MCV 92.8 (80-100) fL MCH 31.7 (25-34) pg MCHC 34.2 (32-36) g/dL RDW Std Deviation 60.2 H (36.4-46.3) fL RDW Coeff of Angela 17.8 H (11.5-14.5) % Plt Count 248 (130-400) K/uL MPV 9.9 (7.4-10.4) fL Immature Gran % (Auto) 2.1 % Neut % (Auto) 82.7 % Lymph % (Auto) 6.0 % Elbert % (Auto) 8.7 % Eos % (Auto) 0.2 % Baso % (Auto) 0.3 % Neut # (Auto) 9.74 H (1.4-6.5) K/uL Lymph # (Auto) 0.70 L (1.2-3.4) K/uL Elbert # (Auto) 1.02 H (0.11-0.59) K/uL Eos # (Auto) 0.02 (0-0.5) K/uL Baso # (Auto) 0.03 (0-0.2) K/uL Immature Gran # (Auto) 0.25 H (0.00-0.02) K/uL PT 12.3 H (9.0-12.0) Seconds INR 1.2 H (0.9-1.1) APTT 32.8 H (21.0-31.0) Seconds PTT Ratio 1.2 VBG pH (7.36-7.41) VBG pCO2 (38-50) mmHg VBG pO2 mmHg VBG HCO3 mmol/L VBG O2 Saturation % VBG Base Excess mEq/L Barometric Pressure mm/Hg Sodium 132 L (136-145) mmol/L Potassium 4.1 (3.5-5.1) mmol/L Chloride 95 L (98-107) mmol/L Carbon Dioxide 28 (21-32) mmol/L Anion Gap 9 (3-11) BUN 14 (6-23) mg/dl Creatinine 0.85 (0.6-1.2) mg/dl Est Cr Clr Drug Dosing Not Reportable Est GFR ( Amer) 76.1 ml/min Est GFR (Non-Af Amer) 65.6 ml/min BUN/Creatinine Ratio 16.5 (10-20) Glucose 156 H (70-99(Fasting)) mg/dl Calcium 12.4 H* (8.5-10.1) mg/dl Magnesium 1.2 L (1.7-2.4) mg/dl Total Bilirubin 0.9 (0.2-1.0) mg/dl Direct Bilirubin 0.1 (0-0.2) mg/dl AST 19 (13-39) U/L ALT 34 (7-52) U/L Alkaline Phosphatase 58 (34-104) U/L Troponin I High Sens 8.9 (0-14) pg/ml B-Natriuretic Peptide (0-100) pg/ml Total Protein 6.8 (6.0-8.3) gm/dl Albumin 4.1 (3.4-5.0) gm/dl Globulin 2.7 (2.5-4.0) gm/dl Albumin/Globulin Ratio 1.5 (0.9-2) Lipase 15 (11-82) U/L Urine Color Urine Appearance (Clear) Urine pH (4.5-7.5) Ur Specific [place] (1.000-1.030) Urine Protein (Negative) Urine Glucose (UA) (Negative) Urine Ketones (Negative) Urine Blood (Negative) Urine Nitrite (Negative) Urine Bilirubin (Negative) Urine Urobilinogen (Negative) Ur Leukocyte Esterase (Negative) Urine WBC (Auto) (0-5) /hpf Urine RBC (Auto) (0-4) /hpf U Hyaline Cast (Auto) (0-5) /lpf U Epithel Cells (Auto) (0-5) /lpf Urine Bacteria (Auto) (Negative) SARS-CoV-2 (PCR) (Negative) Influenza Type A (PCR) (Neg) Influenza Type B (PCR) (Neg) RSV (RT-PCR) (Neg) 10/14/21 10/14/21 10/14/21 Range/Units 13:13 13:13 13:36 WBC (4.8-10.8) K/uL RBC (4.2-5.4) M/uL Hgb (12.0-16.0) g/dL Hct (37-47) % MCV (80-100) fL MCH (25-34) pg MCHC (32-36) g/dL RDW Std Deviation (36.4-46.3) fL RDW Coeff of Angela (11.5-14.5) % Plt Count (130-400) K/uL MPV (7.4-10.4) fL Immature Gran % (Auto) % Neut % (Auto) % Lymph % (Auto) % Elbert % (Auto) % Eos % (Auto) % Baso % (Auto) % Neut # (Auto) (1.4-6.5) K/uL Lymph # (Auto) (1.2-3.4) K/uL Elbert # (Auto) (0.11-0.59) K/uL Eos # (Auto) (0-0.5) K/uL Baso # (Auto) (0-0.2) K/uL Immature Gran # (Auto) (0.00-0.02) K/uL PT (9.0-12.0) Seconds INR (0.9-1.1) APTT (21.0-31.0) Seconds PTT Ratio VBG pH 7.47 H (7.36-7.41) VBG pCO2 40 (38-50) mmHg VBG pO2 43 mmHg VBG HCO3 28 mmol/L VBG O2 Saturation 78.4 % VBG Base Excess 4.5 mEq/L Barometric Pressure 732.6 mm/Hg Sodium (136-145) mmol/L Potassium (3.5-5.1) mmol/L Chloride (98-107) mmol/L Carbon Dioxide (21-32) mmol/L Anion Gap (3-11) BUN (6-23) mg/dl Creatinine (0.6-1.2) mg/dl Est Cr Clr Drug Dosing Est GFR ( Amer) ml/min Est GFR (Non-Af Amer) ml/min BUN/Creatinine Ratio (10-20) Glucose (70-99(Fasting)) mg/dl Calcium (8.5-10.1) mg/dl Magnesium (1.7-2.4) mg/dl Total Bilirubin (0.2-1.0) mg/dl Direct Bilirubin (0-0.2) mg/dl AST (13-39) U/L ALT (7-52) U/L Alkaline Phosphatase (34-104) U/L Troponin I High Sens (0-14) pg/ml B-Natriuretic Peptide 40 (0-100) pg/ml Total Protein (6.0-8.3) gm/dl Albumin (3.4-5.0) gm/dl Globulin (2.5-4.0) gm/dl Albumin/Globulin Ratio (0.9-2) Lipase (11-82) U/L Urine Color Urine Appearance (Clear) Urine pH (4.5-7.5) Ur Specific [place] (1.000-1.030) Urine Protein (Negative) Urine Glucose (UA) (Negative) Urine Ketones (Negative) Urine Blood (Negative) Urine Nitrite (Negative) Urine Bilirubin (Negative) Urine Urobilinogen (Negative) Ur Leukocyte Esterase (Negative) Urine WBC (Auto) (0-5) /hpf Urine RBC (Auto) (0-4) /hpf U Hyaline Cast (Auto) (0-5) /lpf U Epithel Cells (Auto) (0-5) /lpf Urine Bacteria (Auto) (Negative) SARS-CoV-2 (PCR) NEGATIVE (Negative) Influenza Type A (PCR) Negative (Neg) Influenza Type B (PCR) Negative (Neg) RSV (RT-PCR) Negative (Neg) 10/14/21 Range/Units 14:14 WBC (4.8-10.8) K/uL RBC (4.2-5.4) M/uL Hgb (12.0-16.0) g/dL Hct (37-47) % MCV (80-100) fL MCH (25-34) pg MCHC (32-36) g/dL RDW Std Deviation (36.4-46.3) fL RDW Coeff of Angela (11.5-14.5) % Plt Count (130-400) K/uL MPV (7.4-10.4) fL Immature Gran % (Auto) % Neut % (Auto) % Lymph % (Auto) % Elbert % (Auto) % Eos % (Auto) % Baso % (Auto) % Neut # (Auto) (1.4-6.5) K/uL Lymph # (Auto) (1.2-3.4) K/uL Elbert # (Auto) (0.11-0.59) K/uL Eos # (Auto) (0-0.5) K/uL Baso # (Auto) (0-0.2) K/uL Immature Gran # (Auto) (0.00-0.02) K/uL PT (9.0-12.0) Seconds INR (0.9-1.1) APTT (21.0-31.0) Seconds PTT Ratio VBG pH (7.36-7.41) VBG pCO2 (38-50) mmHg VBG pO2 mmHg VBG HCO3 mmol/L VBG O2 Saturation % VBG Base Excess mEq/L Barometric Pressure mm/Hg Sodium (136-145) mmol/L Potassium (3.5-5.1) mmol/L Chloride (98-107) mmol/L Carbon Dioxide (21-32) mmol/L Anion Gap (3-11) BUN (6-23) mg/dl Creatinine (0.6-1.2) mg/dl Est Cr Clr Drug Dosing Est GFR ( Amer) ml/min Est GFR (Non-Af Amer) ml/min BUN/Creatinine Ratio (10-20) Glucose (70-99(Fasting)) mg/dl Calcium (8.5-10.1) mg/dl Magnesium (1.7-2.4) mg/dl Total Bilirubin (0.2-1.0) mg/dl Direct Bilirubin (0-0.2) mg/dl AST (13-39) U/L ALT (7-52) U/L Alkaline Phosphatase (34-104) U/L Troponin I High Sens (0-14) pg/ml B-Natriuretic Peptide (0-100) pg/ml Total Protein (6.0-8.3) gm/dl Albumin (3.4-5.0) gm/dl Globulin (2.5-4.0) gm/dl Albumin/Globulin Ratio (0.9-2) Lipase (11-82) U/L Urine Color Yellow Urine Appearance Clear (Clear) Urine pH 6.5 (4.5-7.5) Ur Specific [place] 1.010 (1.000-1.030) Urine Protein Negative (Negative) Urine Glucose (UA) Negative (Negative) Urine Ketones Negative (Negative) Urine Blood Negative (Negative) Urine Nitrite Negative (Negative) Urine Bilirubin Negative (Negative) Urine Urobilinogen Negative (Negative) Ur Leukocyte Esterase 1+ H (Negative) Urine WBC (Auto) 1-5 (0-5) /hpf Urine RBC (Auto) 0-4 (0-4) /hpf U Hyaline Cast (Auto) 1-5 (0-5) /lpf U Epithel Cells (Auto) >30 H (0-5) /lpf Urine Bacteria (Auto) Negative (Negative) SARS-CoV-2 (PCR) (Negative) Influenza Type A (PCR) (Neg) Influenza Type B (PCR) (Neg) RSV (RT-PCR) (Neg) Imaging Data Radiologist's Impression: Chest X-Ray 10/14/21 12:29 XR chest 1V portable HISTORY: 76 years-old Female sob acute shortness of breath COMPARISON: Chest and rib radiographs 10/01/2021, CT abdomen pelvis 09/30/2021 TECHNIQUE: Portable AP view of the chest FINDINGS: Cardiac silhouette is enlarged. Left subclavian pacer. No pneumothorax. Inters titial coarsening with progressively worsened right greater than left multifocal airspace opacities. No large pleural effusion. Degenerative changes of the shoulders and spine. IMPRESSION: Progressively worsened extensive bilateral airspace opacities suggestive of multifocal pneumonia. ACT 112: Negative or not required by law. The above report was generated using voice recognition software. It may contain grammatical, syntax or spelling errors. Electronically signed by: Morteza Pool M.D. 10/14/2021 2:07 PM ECG Data Indication: + SOB/dyspnea Rate (beats per minute): 71 Rhythm: + sinus with SA ECG Intervals/blocks: + Normal QRS, + Normal MN and + Normal QT-c ECG ST segments: + Normal ST segments MDM Narrative 1257: The patient was evaluated in room A12. A complete history and physical exam was performed Cardiac monitoring: An order was placed for continuous cardiac monitoring. The monitor shows a rate of 80 with sinus rhythm Patient was found to be hypoxic on room air and placed on supplemental oxygen via nasal cannula which improved her oxygen saturation. 1420: Vital signs stable on supplemental oxygen via nasal cannula. Chest x-ray shows multifocal pneumonia very concerning for COVID-like appearance. Decadron 6 mg IV push ordered for the patient. 1454: Vital signs stable on supplemental oxygen via nasal cannula. Labs show white blood cell count of 11.7. Coagulation studies within normal limits. Venous blood gas within normal limits. Calcium elevated at 12.4. Magnesium low at 1.2. This is thought that the patient's abdominal pain could be due to to her hypercalcemia. Patient will be treated with IV fluids for that. Magnesium will be repleted beginning in the emergency department. Patient is COVID- negative on Cepheid swab. Patient be treated with broad-spectrum antibiotics cefepime and vancomycin. Blood cultures will be ordered. [facility] Impression & Plan Hypoxia, Multifocal pneumonia Discharge Plan Visit Data Chief Complaint: Illness Stated Complaint: FEVER, COUGH, ABDOMINAL PAIN ED Provider: Edilberto Rothman Discharge Problem: Hypoxia, Multifocal pneumonia Patient Disposition: Admitted As Inpatient Forms Stand Alone Forms: My [facility] Prescriptions Prescriptions: No Action irbesartan 300 mg tablet 300 mg PO DAILY Qty: 90 RF: 3 diltiazem HCl 240 mg capsule,extended release 24hr 240 mg PO DAILY Qty: 90 RF: 3 folic acid 1 mg tablet 1 mg PO DAILY Qty: 90 RF: 3 Eliquis 5 mg tablet 5 mg PO BID Qty: 180 RF: 3 metformin 500 mg tablet extended release 24hr 500 mg PO DAILY Qty: 90 RF: 3 hydrocodone-acetaminophen 5-325 mg tablet See Rx Instructions PO Q6H MDD 8 PRN (Reason: severe pain) Qty: 240 RF: 0 omeprazole 40 mg capsule,delayed release(DR/EC) 40 mg PO DAILY Qty: 30 RF: 5 prednisone 5 mg tablet 7.5 mg PO DAILY RF: 0 (DME) Incontinence pads. daytime Qty: 100 RF: 11 (DME) incontinence pads nighttime Qty: 60 RF: 11 triamcinolone acetonide 0.1 % cream 1 applic topical BID PRN (Reason: skin irritation) Qty: 80 RF: 3 (DME) blood-glucose meter [Blood Glucose Monitoring] Kit See Rx Instructions .Route Qty: 50 RF: 11 methotrexate sodium 2.5 mg tablet 20 mg PO .weekly RF: 0 tamsulosin 0.4 mg capsule 0.4 mg PO DAILY RF: 0 red yeast rice 600 mg Capsule 1,200 mg PO DAILY RF: 0 Referrals Referrals: Ilya Yu MD [Primary Care Provider] -
[2021-10-14 13:34] LABS: Basophils # (auto) 0.03 K/uL (0-0.2); Basophils % (auto) 0.3 %; Eosinophils # (auto) 0.02 K/uL (0-0.5); Eosinophils % (auto) 0.2 %; Hematocrit (blood only) 38.6 % (37-47); Hemoglobin 13.2 g/dL (12.0-16.0); Immature Granulocytes # (auto) 0.25 K/uL (0.00-0.02); Immature Granulocytes % (auto) 2.1 %; Mean Corpuscular Hemoglobin 31.7 pg (25-34); Mean Corpuscular Hgb Conc 34.2 g/dL (32-36); Mean Corpuscular Volume 92.8 fL (80-100); Mean Platelet Volume 9.9 fL (7.4-10.4); Monocytes # (auto) 1.02 K/uL (0.11-0.59); Monocytes % (auto) 8.7 %; Neutrophils # (auto) 9.74 K/uL (1.4-6.5); Neutrophils % (auto) 82.7 %; Platelet Count 248 K/uL (130-400); RDW Coefficient of Variation 17.8 % (11.5-14.5); RDW Standard Deviation 60.2 fL (36.4-46.3); Red Blood Count 4.16 M/uL (4.2-5.4); White Blood Count 11.76 K/uL (4.8-10.8)
[2021-10-14 13:37] LABS: INR 1.2 (0.9-1.1); Partial Thromboplastin Ratio 1.2; Partial Thromboplastin Time 32.8 Seconds (21.0-31.0); Prothrombin Time 12.3 Seconds (9.0-12.0)
[2021-10-14 13:43] LABS: Base Excess VBG 4.5 mEq/L; Oxygen Saturation VBG 78.4 %; pH VBG 7.47 (7.36-7.41)
[2021-10-14 13:57] LABS: Troponin I High Sensitivity 8.9 pg/ml (0-14)
--- NOTE | 2021-10-14 14:09 | XRay Report ---
XR chest 1V portable HISTORY: 76 years-old Female sob acute shortness of breath COMPARISON: Chest and rib radiographs 10/01/2021, CT abdomen pelvis 09/30/2021 TECHNIQUE: Portable AP view of the chest FINDINGS: Cardiac silhouette is enlarged. Left subclavian pacer. No pneumothorax. Interstitial coarsening with progressively worsened right greater than left multifocal airspace opacities. No large pleural effusi on. Degenerative changes of the shoulders and spine. IMPRESSION: Progressively worsened extensive bilateral airspace opacities suggestive of multifocal pn eumonia. ACT 112: Negative or not required by law. The above report was generated using voice recognition software. It may contain grammatical, syntax o r spelling errors. Electronically signed by: Morteza Pool M.D. 10/14/2021 2:07 PM
[2021-10-14 14:11] LABS: Alanine Aminotransferase 34 U/L (7-52); Albumin Globulin Ratio 1.5 (0.9-2); Albumin Level 4.1 gm/dl (3.4-5.0); Alkaline Phosphatase 58 U/L (34-104); Anion Gap 9 (3-11); Aspartate Aminotransferase 19 U/L (13-39); BUN Creatinine Ratio 16.5 (10-20); Bilirubin Direct 0.1 mg/dl (0-0.2); Bilirubin,Total 0.9 mg/dl (0.2-1.0); Blood Urea Nitrogen 14 mg/dl (6-23); Calcium 12.4 mg/dl (8.5-10.1); Carbon Dioxide 28 mmol/L (21-32); Chloride 95 mmol/L (98-107); Est GFR (African American) 76.1 ml/min; Est GFR (Non-African American) 65.6 ml/min; Globulin 2.7 gm/dl (2.5-4.0); Glucose 156 mg/dl (70-99(Fasting)); Lipase 15 U/L (11-82); Magnesium 1.2 mg/dl (1.7-2.4); Potassium 4.1 mmol/L (3.5-5.1); Sodium 132 mmol/L (136-145); Total Protein 6.8 gm/dl (6.0-8.3)
[2021-10-14] MEDS ORDERED: dexAMETHasone 6 MG in SYRINGE 0 ML IV ONE (14:21)
[2021-10-14 14:30] LABS: Influenza A virus by PCR Negative (Neg); Influenza B virus by PCR Negative (Neg); RSV by PCR Negative (Neg); SARS CoV2 RNA(COVID-19) InHosp NEGATIVE (Negative)
[2021-10-14] MEDS ORDERED: MAGNESIUM SULFATE / D5W 1 GM/100 ML BAG IV STA (14:30)
[2021-10-14 14:32] LABS: Appearance Urine Clear (Clear); Bacteria Urine Automated Negative (Negative); Bilirubin Urine Negative (Negative); Blood Urine Negative (Negative); Color Urine Yellow; Epithelial Cell Urine Auto >30 /lpf (0-5); Glucose Urine UA Negative (Negative); Ketones Urine Negative (Negative); Leukocyte Esterase Urine 1+ (Negative); Nitrite Urine Negative (Negative); Protein Urine Negative (Negative); RBC Urine Automated 0-4 /hpf (0-4); Urobilinogen Urine Negative (Negative); pH Urine 6.5 (4.5-7.5)
[2021-10-14] MEDS ORDERED: CEFEPIME 2,000 MG/20 ML VIAL IV STA (14:41)
[2021-10-14] MEDS ORDERED: VANCOMYCIN HCL 2,000 MG in SODIUM CHLORIDE 0.9% 500 ML IV ONE (14:45)
[2021-10-14] MEDS ORDERED: VANCOMYCIN CONSULT ACTIVE PRN ×2 (14:45→16:46)
[2021-10-14] MEDS: SODIUM CHLORIDE 0.9% 1000ML 1,000 ML IV SCH (14:52)
[2021-10-14] MEDS ORDERED: DEXAMETHASONE SOD INJ 4 MG/ML VIAL ONE (15:13)
--- NOTE | 2021-10-14 15:28 | Electrocardiogram Report ---
Test Reason : Blood Pressure : / mmHG Vent. Rate : 071 BPM Atrial Rate : 071 BPM P-R Int : 162 ms QRS Dur : 086 ms QT Int : 350 ms P-R-T Axes : 002 000 043 degrees QTc Int : 380 ms Poor data quality, interpretation may be adversely affected Sinus rhythm with Premature supraventricular complexes Electronic atrial pacemaker seen intermittently Abnormal ECG When compared with ECG of 30-SEP-2021 21:44, No significant change Confirmed by Arslan Torre ([id number]) on 10/14/2021 3:27:44 PM Referred By: REFERRED SELF Confirmed By:Arslan Torre
--- NOTE | 2021-10-14 16:05 | History & Physical Report ---
Date of Service October 14, 2021 Assessment & Plan (1) Multifocal pneumonia: Plan: Bacterial vs. viral vs. pulmonary congestion or combination of these - Presents with hypoxia elevated WBC and elevated NLR, clear colored sputum production - Blood cultures obtained - Presenting COVID PCR- negative - PCT, CRP, ESR pending, fungitell - Admit with contact precautions - repeat COVID test in AM (recommend full respiratory biofire panel) - Continue with Vancomycin and Cefepime, Azithromycin - received 6mg IV Decadron by EMD- will hold and continue her normal prednisone at this time - Carie tonearnestine (2) Hypoxia: Plan: Secondary to #1 - CTA of the chest- Negative for PE- - as above - continue with supportive care and oxygen as needed - Lasix 20mg IV x1 now - Hyopxia with getting out of bed to use bathroom- will place Christopher - NC/HFNC (3) Hypercalcemia: Plan: Chronic with workup initiated earlier this month- she is not on calcium supplementation - Will administer saline infusion overnight - check ionized calcium and phos now - no role at this time for bisphosphonate or calcitonin- therapy should be guided by iCA - continue to evaluate causes of recurrence- with PSE3 - guide therapy based on ionized calcium (4) Cholelithiasis: Plan: multiple gallstones within the gallbladder. 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 Navarro (remains on prednisone and MTX), Oneal Montes's, Afib (on apixaban), Tachy-sylvia syndrome (pacemaker, abdominal pain, HTN, GERD, DMII, HLD, hyomagnesemia. Patient comes to the EMD today for continued complaint of lower abdominal pain. Patient has been having this ongoing for over the last 2-3 months. Patient was noted to be hypoxic on room air during evaluation as well. She had routine CXR, labs, performed, she had CT of her abdomen and pelvis performed on the . The CXR returned with bilateral opacities and concern for multifocal pneumonia. Her COVID test was negative. She was started on Vancomycin and Cefepime IV. Patient states that overall last week she started to have a cough with clear secretions and fever of 101 noted last night. She also feels that over the last week that she has had increase in dyspnea and walking up steps has become difficult as well as about 50 feet she feels tired. She was noted again as well to by hypercalcemic- 12.4 and with low mag 1.2. Will obtain CTA PE of the chest with her acute hypoxia as well as to evaluate her opacities better. Continue ABX therapy. Lasix 20mg IV now. She denies any travel or other contacts that were ill. 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 SPEP and UPEP were also sent. 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 Patient COVID/FLU/RSV: PCR NEGATIVE- Although her symptoms were approx about a week ago- will admit as PUI with retest likely in the morning. Allergies Allergy/AdvReac Type Severity Reaction Status Date / Time amoxicillin Allergy Intermediate "I FELT Verified 10/14/21 13:42 WORSE AFTER TAKING THE MEDICATION" hydroxychloroquine Allergy Intermediate HIVES HEAD Verified 10/14/21 13:42 [From Plaquenil] TO TOE pantoprazole Allergy Intermediate "DIDN'T Verified 10/14/21 13:42 FEEL WELL AND WENT INTO A-FIB" APOLLO Inhibitors AdvReac Intermediate COUGH Verified 10/14/21 13:42 Home Medications Medication Instructions Recorded Confirmed Type Incontinence pads. #100 ea 07/12/19 10/07/21 Rx incontinence pads #60 ea 07/12/19 10/07/21 Rx irbesartan 300 mg tablet 300 mg PO DAILY #90 tab 04/14/21 10/14/21 Rx triamcinolone acetonide 0.1 % 1 applic TOPICAL BID PRN #80 g 04/14/21 10/14/21 Rx topical cream diltiazem HCl 240 mg 240 mg PO DAILY #90 cap 06/09/21 10/14/21 Rx capsule,extended release 24 hr apixaban 5 mg tablet (Eliquis) 5 mg PO BID #180 tab 07/11/21 10/14/21 Rx folic acid 1 mg tablet 1 mg PO DAILY #90 tab 07/11/21 10/14/21 Rx metformin 500 mg tablet,extended 500 mg PO DAILY #90 tab 07/29/21 10/14/21 Rx release 24hr omeprazole 40 mg capsule,delayed 40 mg PO DAILY #30 cap 08/13/21 10/14/21 Rx release blood-glucose meter (Blood Glucose #50 ea 09/16/21 10/07/21 Rx Monitoring) methotrexate sodium 2.5 mg tablet 20 mg PO .weekly tab 09/16/21 10/14/21 History prednisone 5 mg tablet 7.5 mg PO DAILY tab 09/30/21 10/14/21 History red yeast rice 600 mg capsule 1,200 mg PO DAILY 10/14/21 10/14/21 History tamsulosin 0.4 mg capsule 0.4 mg PO DAILY 10/14/21 10/14/21 History hydrocodone 5 mg-acetaminophen 325 See Rx Instructions PO Q6H PRN 10/15/21 Rx mg tablet #240 tab MDD 8 Past Med/Surg History Medical History Benign essential hypertension Chronic low back pain Chronic narcotic use Chronic rhinitis Cystocele Diverticulosis Drug-induced diabetes mellitus Fibroadenoma of breast Gastroesophageal reflux disease Hearing loss Hyperlipidemia Hypokalemia Hypomagnesemia Hyponatremia Insomnia, persistent Left acoustic neuroma Left asymmetrical SNHL Left flank pain Leukocytosis Lumbar spinal stenosis Multiple thyroid nodules Osteopenia Paroxysmal atrial fibrillation Prediabetes Rectocele 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 Stress incontinence Ureteral calculus, left Urinary incontinence Vitamin D insufficiency Surgical History H/O breast surgery right--fibroadenoma History of cryosurgery cervix History of hysterectomy History of total bilateral knee replacement Family History Mother Diabetes Hypertension Breast cancer Father Hypertension Grandfather (Maternal) Myocardial infarction Grandfather (Paternal) Myocardial infarction Brother Hypertension Unknown Hyperlipidemia Denies family history of Ovarian cancer Prostate cancer Adverse anesthesia outcome Colorectal cancer Stroke Asthma Social History Smoking Status: Never smoker Second Hand Exposure: No; Hx Alcohol Use: No Hx Substance Use: No Preferred Language: Sami Communication Ability: Effective Visual Impairment: Partially Limited Hearing Ability: Use of Hearing Aid Cooler Man Required: No Beliefs That Will Affect Care: None marital status: Current Living Situation: Spouse current occupational status: retired Feels Safe at Home: Yes Childhood Exposure to Second-Hand Smoke: No caffeine: Yes (coffee) during the past year weight has: remained stable Dental Care, Regularly: No Physical Activity Frequency: 3-4 Times per Week Seatbelt Use: always Sunscreen Use: Yes (sometimes) Do you think of yourself as: straight/heterosexual Assistive Devices: None Review of Systems Review of Systems: REVIEW OF SYSTEMS: Constitutional: (+) fever, sweats or chills Eyes: No diplopia, no worsening or blurred vision ENT: normal hearing, no trouble swallowing Respiratory: (+) cough, sputum, dyspnea at rest or on exertion Cardiovascular: No chest pain, tightness or palpitations Abdomen: (+) pain, nausea, vomiting, diarrhea or constipation Musculoskeletal: (+) hand joint pain, No joint pain, calf pain, swelling Neurologic: No weakness, numbness/tingling, or balance problems Psychiatric: No anxiety or depression Skin: No rash or itch Physical Exam Physical Exam: PHYSICAL EXAM: General: awake, alert, no apparent distress Head: Normocephalic, atraumatic ENT: PERRL, EOMI, no pharyngeal exudate, mucous membranes moist Neuro: AAO x 3, speech clear and appropriate, strength intact bilaterally 5/5, sensation intact and equal all extremities and dermatomes, no pronator drift Chest: equal rise and fall of the chest, no accessory muscle use, no heaves or thrills, Clear to auscultation, on room air, Cardiac: Regular rate and rhythm, telemetry reviewed, skin warm dry, cap refill <3 seconds, peripheral pulses +2 no JVD, no murmur, no edema GI: NABS x 4 quadrants, soft, nontender to palpation, no rebound, guarding or tenderness : Spontaneously voiding, no pain, no CVA tenderness, Extremities: Normal inspection, no peripheral edema or erythema, calfs nontender to palpation Psych: Normal mood and affect Skin: no rash or erythema Results & Data Results & Data ([facility]) Vital Signs (Past 12 Hours) Vital Signs Temp Pulse Pulse Resp BP BP Pulse Ox 10/14/21 13:41 80 20 178/86 H 98 10/14/21 12:14 36.5 C 79 20 145/64 H 83 L Laboratory Results Abnormal lab results 10/14/21 10/14/21 10/14/21 Range/Units 13:13 13:13 13:13 WBC 11.76 H (4.8-10.8) K/uL RBC 4.16 L (4.2-5.4) M/uL RDW Std Deviation 60.2 H (36.4-46.3) fL RDW Coeff of Angela 17.8 H (11.5-14.5) % Neut # (Auto) 9.74 H (1.4-6.5) K/uL Lymph # (Auto) 0.70 L (1.2-3.4) K/uL Tate # (Auto) 1.02 H (0.11-0.59) K/uL Immature Gran # (Auto) 0.25 H (0.00-0.02) K/uL PT 12.3 H (9.0-12.0) Seconds INR 1.2 H (0.9-1.1) APTT 32.8 H (21.0-31.0) Seconds VBG pH (7.36-7.41) Sodium 132 L (136-145) mmol/L Chloride 95 L (98-107) mmol/L Glucose 156 H (70-99(Fasting)) mg/dl Calcium 12.4 H* (8.5-10.1) mg/dl Magnesium 1.2 L (1.7-2.4) mg/dl Ur Leukocyte Esterase (Negative) U Epithel Cells (Auto) (0-5) /lpf 10/14/21 10/14/21 Range/Units 13:13 14:14 WBC (4.8-10.8) K/uL RBC (4.2-5.4) M/uL RDW Std Deviation (36.4-46.3) fL RDW Coeff of Angela (11.5-14.5) % Neut # (Auto) (1.4-6.5) K/uL Lymph # (Auto) (1.2-3.4) K/uL Tate # (Auto) (0.11-0.59) K/uL Immature Gran # (Auto) (0.00-0.02) K/uL PT (9.0-12.0) Seconds INR (0.9-1.1) APTT (21.0-31.0) Seconds VBG pH 7.47 H (7.36-7.41) Sodium (136-145) mmol/L Chloride (98-107) mmol/L Glucose (70-99(Fasting)) mg/dl Calcium (8.5-10.1) mg/dl Magnesium (1.7-2.4) mg/dl Ur Leukocyte Esterase 1+ H (Negative) U Epithel Cells (Auto) >30 H (0-5) /lpf Diagnostic Findings Chest X-Ray 10/14/21 12:29 XR chest 1V portable HISTORY: 76 years-old Female sob acute shortness of breath COMPARISON: Chest and rib radiographs 10/01/2021, CT abdomen pelvis 09/30/2021 TECHNIQUE: Portable AP view of the chest FINDINGS: Cardiac silhouette is enlarged. Left subclavian pacer. No pneumothorax. Interstitial coarsening with progressively worsened right greater than left multifocal airspace opacities. No large pleural effusion. Degenerative changes of the shoulders and spine. IMPRESSION: Progressively worsened extensive bilateral airspace opacities suggestive of multifocal pneumonia. ACT 112: Negative or not required by law. The above report was generated using voice recognition software. It may contain grammatical, syntax or spelling errors. Electronically signed by: Morteza Pool M.D. 10/14/2021 2:[address] angio chest PE protocol CLINICAL HISTORY: PE rule out, evaluate lung opacities TECHNIQUE: Multidetector row helical CT of the chest was performed with angiographic protocol. Coronal and sagittal reformations were obtained. Coronal and sagittal MIPS were obtained from the axial data set and were submitted for review. Automated dose lowering techniques and/or adjustment according to patient size were utilized for this exam. CT DOSE: 735.24 mGy.cm Comparison: None available at the time of this dictation. FINDINGS: Lungs and pleura: Multifocal airspace opacities are seen. There is smooth interstitial thickening. Heart and pericardium: Heart size is normal. No pericardial effusion. Vessels: Moderate atherosclerotic changes in the aorta and coronary arteries. Evidence of pulmonary embolus. Mediastinum and cherelle: Unremarkable. Chest wall and lower neck: Unremarkable. Abdomen: Left nodule in the adrenal gland is unchanged. Bones: Degenerative changes in the thoracic spine. IMPRESSION: 1. No evidence of pulmonary embolism. 2. Interstitial thickening and airspace opacities are favored to represent interstitial edema with alveolar edema and/or pneumonia. Medications Administered Sodium Chloride (Nss 1000ml) 1,000 mls @ 125 mls/hr IV .Q8H RADHA Stop: 11/13/21 14:29 Last Admin: 10/14/21 14:52 Dose: 125 mls/hr Documented by: [id number] Vancomycin HCl 2,000 mg/ (Sodium Chloride) 540 mls @ 200 mls/hr IV NOW ONE Stop: 10/14/21 17:26 Last Admin: 10/14/21 16:02 Dose: 200 mls/hr Documented by: [id number] Discontinued Medications Dexamethasone (Dexamethasone Sod Inj 4 Mg/Ml Vial) Confirm Administered Dose 8 mg .ROUTE .STK-MED ONE Stop: 10/14/21 15:14 Last Admin: 10/14/21 15:51 Dose: Not Given Documented by: [id number] Dexamethasone 6 mg/ Syringe 1.5 mls @ 1 mls/min IV ONE ONE Stop: 10/14/21 14:22 Last Admin: 10/14/21 15:51 Dose: 1 mls/min Documented by: [id number] Magnesium Sulfate/Dextrose (Magnesium Sulfate / D5w) 1 gm in 100 mls @ 100 mls/hr IV NOW STA Stop: 10/14/21 15:29 Last Infusion: 10/14/21 15:54 Dose: 0 mls/hr Documented by: [id number] Admin: 10/14/21 14:52 Dose: 100 mls/hr Documented by: [id number] Cefepime HCl (Maxipime) 2,000 mg in 20 mls @ 5 mls/min IV NOW STA; Protocol Stop: 10/14/21 14:44 Last Admin: 10/14/21 14:52 Dose: 5 mls/min Documented by: [id number] Ioversol (Optiray 320 125ml) 117 ml IV ONCE ONE Stop: 10/14/21 16:30 Last Admin: 10/14/21 16:30 Dose: 117 ml Documented by: [id number] Home Medications Incontinence pads. #100 ea 07/12/19 [Rx Confirmed 10/07/21] incontinence pads #60 ea 07/12/19 [Rx Confirmed 10/07/21] irbesartan 300 mg tablet 300 mg PO DAILY #90 tab 04/14/21 [Rx Confirmed 10/14/21] triamcinolone acetonide 0.1 % topical cream 1 applic TOPICAL BID PRN #80 g 04/14/21 [Rx Confirmed 10/14/21] diltiazem HCl 240 mg capsule,extended release 24 hr 240 mg PO DAILY #90 cap 06/09/21 [Rx Confirmed 10/14/21] apixaban 5 mg tablet (Eliquis) 5 mg PO BID #180 tab 07/11/21 [Rx Confirmed 10/14/21] folic acid 1 mg tablet 1 mg PO DAILY #90 tab 07/11/21 [Rx Confirmed 10/14/21] metformin 500 mg tablet,extended release 24hr 500 mg PO DAILY #90 tab 07/29/21 [Rx Confirmed 10/14/21] omeprazole 40 mg capsule,delayed release 40 mg PO DAILY #30 cap 08/13/21 [Rx Confirmed 10/14/21] hydrocodone 5 mg-acetaminophen 325 mg tablet See Rx Instructions PO Q6H PRN #240 tab MDD 8 09/15/21 [Rx Confirmed 10/14/21] blood-glucose meter (Blood Glucose Monitoring) #50 ea 09/16/21 [Rx Confirmed 10/07/21] methotrexate sodium 2.5 mg tablet 20 mg PO .weekly tab 09/16/21 [History Confirmed 10/14/21] prednisone 5 mg tablet 7.5 mg PO DAILY tab 09/30/21 [History Confirmed 10/14/21] red yeast rice 600 mg capsule 1,200 mg PO DAILY 10/14/21 [History Confirmed 10/14/21] tamsulosin 0.4 mg capsule 0.4 mg PO DAILY 10/14/21 [History Confirmed 10/14/21] Active Medications Sodium Chloride (Nss 1000ml) 1,000 mls @ 125 mls/hr IV .Q8H RADHA Stop: 11/13/21 14:29 Last Admin: 10/14/21 14:52 Dose: 125 mls/hr Documented by: Vancomycin HCl 2,000 mg/ (Sodium Chloride) 540 mls @ 200 mls/hr IV NOW ONE Stop: 10/14/21 17:26 Last Admin: 10/14/21 16:02 Dose: 200 mls/hr Documented by: Cefepime HCl 2,000 mg/ Syringe 20 mls @ 5 mls/min IV Q8 RADHA; Protocol Stop: 10/21/21 21:59 Magnesium Sulfate/Dextrose (Magnesium Sulfate / D5w) 1 gm in 100 mls @ 50 mls/hr IV Q2H RADHA Stop: 10/15/21 00:29 Miscellaneous Information (Vancomycin Consult Active) 1 ea N/A UD PRN PRN Reason: Consult Stop: 11/13/21 14:44 ECG Additional Comments: Electronic atrial pacemaker seen intermittently Abnormal ECG When compared with ECG of 30-SEP-2021 21:44, No significant change Code Status & VTE Plan Code Status CODE: FULL VTE: SCDS, Apixaban VTE Prophylaxis Plan VTE Prophylaxis will be ordered: Yes Supervising Physician Co-Signing Physician Notes Patient seen and examined at bedside. Obtained a physical examination and history during face to face encounter. I discussed plan of care with CRISTIAN Bojorquez I reviewed above note and agree with it. Patient admitted with multifocal pneumonia. Placed on Iv antibiotics. 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
[2021-10-14] MEDS ORDERED: OPTIRAY 320 125ml IV ONE (16:29)
[2021-10-14] MEDS ORDERED: VANCOMYCIN HCL 1 MG in DEXTROSE 5% 100 ML IV SCH (16:46)
[2021-10-14] MEDS ORDERED: DEXTROSE 50% 50 ML SYRINGE IV PRN (16:46)
[2021-10-14] MEDS ORDERED: GLUCOSE 40% GEL 15 GM TUBE PO PRN (16:46)
[2021-10-14] MEDS ORDERED: GLUCAGON FOR INJ 1 MG VIAL SQ PRN (16:46)
[2021-10-14] MEDS ORDERED: CARBOHYDRATES FOR HYPOGLYCEMIA PO PRN (16:46)
[2021-10-14] MEDS ORDERED: GLUCOSE 10 TABS/TUBE PO PRN (16:46)
--- NOTE | 2021-10-14 16:49 | CT Scan Report ---
CT angio chest PE protocol CLINICAL HISTORY: PE rule out, evaluate lung opacities TECHNIQUE: Multidetector row helical CT of the chest was performed with angiographic protocol. Linares l and sagittal reformations were obtained. Coronal and sagittal MIPS were obtained from the axial erick a set and were submitted for review. Automated dose lowering techniques and/or adjustment according to patient size were utilized for this exam. CT DOSE: 735.24 mGy.cm Comparison: None available at the time of this dictation. FINDINGS: Lungs and pleura: Multifocal airspace opacities are seen. There is smooth interstitial thickening. Heart and pericardium: Heart size is normal. No pericardial effusion. Vessels: Moderate atherosclerotic changes in the aorta and coronary arteries. Evidence of pulmonary e mbolus. Mediastinum and cherelle: Unremarkable. Chest wall and lower neck: Unremarkable. Abdomen: Left nodule in the adrenal gland is unchanged. Bones: Degenerative changes in the thoracic spine. IMPRESSION: 1. No evidence of pulmonary embolism. 2. Interstitial thickening and airspace opacities are favored to represent interstitial edema with a lveolar edema and/or pneumonia. ACT 112: Negative or not required by law. Electronically signed by: Alvarado Oliver M.D. 10/14/2021 4:48 PM
[2021-10-14] MEDS: HYDROCODONE/ACETAMOPHEN 5/325MG TAB PO PRN (17:29)
[2021-10-14] MEDS ORDERED: FUROSEMIDE INJ 20 MG/2 ML VIAL IV ONE (18:23)
[2021-10-14] MEDS: MAGNESIUM SULFATE / D5W 1 GM/100 ML BAG IV SCH ×3 (18:44→23:09)
[2021-10-14] MEDS ORDERED: metHOTREXate sodium 2.5 MG TAB PO ONE (20:00)
[2021-10-14] MEDS ORDERED: AZITHROMYCIN 500 MG in DEXTROSE 5% 250 ML IV ONE (21:00)
[2021-10-14] MEDS: APIXABAN 5 MG TABLET PO SCH (21:01)
[2021-10-14] MEDS: INSULIN ASPART PER UNIT SC SCH (21:27)
[2021-10-14] MEDS ORDERED: CEFEPIME 2,000 MG/20 ML VIAL ONE (21:52)
[2021-10-14] MEDS: CEFEPIME 2,000 MG in SYRINGE 0 ML IV SCH (21:54)
[2021-10-15] MEDS: SODIUM CHLORIDE 0.9% 1000ML 1,000 ML IV SCH (00:15)
[2021-10-15] MEDS: MAGNESIUM SULFATE / D5W 1 GM/100 ML BAG IV SCH (01:11)
[2021-10-15] MEDS: HYDROCORTISONE SOD 50 MG in SYRINGE 0 ML IV SCH ×3 (03:25→17:47)
[2021-10-15 03:36] LABS: Adenovirus PCR Not Detected (NotDetected); Bordetella parapertussis PCR Not Detected (NotDetected); Bordetella pertussis PCR Not Detected (NotDetected); Chlamydia pneumoniae PCR Not Detected (NotDetected); Coronavirus 229E PCR Not Detected (NotDetected); Coronavirus CoV-2 (COVID19)PCR Not Detected (NotDetected); Coronavirus HKU1 PCR Not Detected (NotDetected); Coronavirus NL63 PCR Not Detected (NotDetected); Coronavirus OC43PCR Not Detected (NotDetected); Human Metapneumovirus PCR Not Detected (NotDetected); Influenza A PCR Not Detected (NotDetected); Influenza B PCR Not Detected (NotDetected); Mycoplasma pneumoniae PCR Not Detected (NotDetected); Parainfluenza Virus 1 PCR Not Detected (NotDetected); Parainfluenza Virus 2 PCR Not Detected (NotDetected); Parainfluenza Virus 3 PCR Not Detected (NotDetected); Parainfluenza Virus 4 PCR Not Detected (NotDetected); Respiratory Syncytial VirusPCR Not Detected (NotDetected); Rhinovirus/Enterovirus PCR Not Detected (NotDetected)
[2021-10-15] MEDS: HYDROCODONE/ACETAMOPHEN 5/325MG TAB PO PRN ×2 (03:47→23:22)
[2021-10-15] MEDS ORDERED: VANCOMYCIN HCL 1,250 MG in SODIUM CHLORIDE 0.9% 250 ML IV SCH (04:00)
[2021-10-15] MEDS ORDERED: FUROSEMIDE INJ 20 MG/2 ML VIAL IV ONE (04:00)
[2021-10-15 05:24] LABS: Basophils # (auto) 0.02 K/uL (0-0.2); Basophils % (auto) 0.2 %; Hematocrit (blood only) 36.2 % (37-47); Hemoglobin 12.6 g/dL (12.0-16.0); Immature Granulocytes % (auto) 1.5 %; Lymphocytes # (auto) 0.66 K/uL (1.2-3.4); Mean Corpuscular Hgb Conc 34.8 g/dL (32-36); Mean Corpuscular Volume 91.9 fL (80-100); Mean Platelet Volume 9.8 fL (7.4-10.4); Monocytes % (auto) 11.3 %; Neutrophils # (auto) 10.85 K/uL (1.4-6.5); Platelet Count 243 K/uL (130-400); RDW Coefficient of Variation 17.2 % (11.5-14.5); RDW Standard Deviation 57.5 fL (36.4-46.3); Red Blood Count 3.94 M/uL (4.2-5.4); White Blood Count 13.23 K/uL (4.8-10.8)
[2021-10-15 05:53] LABS: BUN Creatinine Ratio 18.4 (10-20); Calcium 11.4 mg/dl (8.5-10.1); Creatinine Clr Calc Pharmacy 60.9 ml/min; Est GFR (African American) 87.1 ml/min; Est GFR (Non-African American) 75.1 ml/min; Potassium 3.3 mmol/L (3.5-5.1)
[2021-10-15] MEDS: CEFEPIME 2,000 MG in SYRINGE 0 ML IV SCH ×3 (06:13→21:17)
--- NOTE | 2021-10-15 07:55 | Hospitalist Progress Note ---
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 Multifocal pneumonia: -CTA w/ interstitial thickening and airspace opacities represent interstitial edema w/ alveolar edema &/or PNA -COVID & RVP negative. -WBC 13.23, MRSA negative, procal 0.09. -Blood cultures and Fungitell pending. -Bacterial vs. viral vs. pulmonary edema -Started on Vancomycin, Cefepime, Azithromycin on 10/14. D/C'ed Vanc due to MRSA negative -Continue Cefepime and Azithromycin. -Follow cultures Acute respiratory failure with hypoxia requiring high flow NC -Hypoxic to 83% in ED requiring High Flow O2. -CTA negative for PE. -?Pneumonia induced vs CHF -Given 20mg IV Lasix in on admission -Ordered echo. -Continue supportive care. Hypercalcemia: -Ca of ~11-12 past few months. -Ca 12.4, ionized Ca 1.43, Mg 1.2 on arrival. -Outpatient workup - PTH, PTHrP low; Vitamin D WNL -No foods or medications with high calcium. -CT negative for signs of sarcoidosis. -Ordered APOLLO level. 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 Navarro outpatient -Continue home prednisone and MTX. Tachy-sylvia syndrome: -Afib with tachy-sylvia syndrome s/p pacemaker -Rate controlled. -Continue home Eliquis and Diltiazem. Hypomagnesemia: -Mg 1.2 on arrival. -Repleted to 2.0 -AM Mg DMII (diabetes mellitus, type 2): -Hold metformin -SSI DVT Prophylaxis: Eliquis 5mg BID F/E/N/GI: Carb consistent T2DM Code Status: Full Code Dispo: PCU Admission and Anticipated Discharge Date Admission Date: October 14, 2021 Supervising Physician Co-Signing Physician Notes Resident Physician Supervision Note: I independently interviewed and examined the patient and verified the villanueva history and physical, reviewed labs and image studies and agree with resident Dr. Melendez findings and care plan. Subjective Patient seen at the bedside today. Patient relayed she came into the ED for cough and clear sputum production along with SoB that had been going on for a few weeks as well as a fever of 101 the night before arriving to the hospital. She states her temperature usually runs ~97.6 and she Review of Systems Constitutional: as per Subjective / HPI Physical Exam Constitutional: WD/WN, vitals as above Not in any acute distress. Alert and conversing well on high flow. Respiratory: normal respiratory effort, lungs clear to auscultation Cardiovascular: RRR, no murmur, no edema Gastrointestinal (Abdomen): normal bowel sounds, soft, nontender, no hepatosplenomegaly Psychiatric: A+Ox3, euthymic affect Results & Data Results & Data ([facility]) Vital Signs (Past 12 Hours) Vital Signs Temp Pulse Pulse Resp BP BP Pulse Ox 10/15/21 07:40 71 18 96 10/15/21 07:16 65 20 122/79 96 10/15/21 06:00 63 25 H 91 10/15/21 05:30 63 23 92 10/15/21 05:00 75 17 10/15/21 04:46 70 16 129/78 92 10/15/21 04:45 67 19 129/78 91 10/15/21 04:30 63 20 97 10/15/21 04:00 69 21 96 10/15/21 03:30 68 20 91 10/15/21 03:28 67 22 90 10/15/21 03:00 66 19 90 10/15/21 02:40 66 22 94 10/15/21 02:30 64 24 90 10/15/21 02:20 65 25 H 91 10/15/21 02:10 64 24 95 10/15/21 02:00 61 27 H 91 10/15/21 01:50 62 26 H 93 10/15/21 01:49 67 22 93 10/15/21 01:40 63 29 H 90 10/15/21 01:30 62 23 87 L 10/15/21 01:20 66 25 H 89 L 10/15/21 01:10 62 24 89 L 10/15/21 01:00 60 23 89 L 10/15/21 00:50 61 23 91 10/15/21 00:40 63 24 89 L 10/15/21 00:31 61 22 115/55 L 10/15/21 00:30 60 24 115/55 L 90 10/15/21 00:20 62 24 90 10/15/21 00:10 60 24 90 10/15/21 00:00 61 24 88 L 10/14/21 23:50 60 28 H 90 10/14/21 23:40 61 27 H 91 10/14/21 23:30 61 22 89 L 10/14/21 23:20 65 26 H 91 10/14/21 23:10 63 23 92 10/14/21 23:00 60 24 91 10/14/21 20:57 37.0 C 69 23 162/76 H 94 Resident Activity Tracking Resident Involvement: Resident Care Provided Care Provided: Adult Hospital Medicine (1) Cholelithiasis Biliary obstruction: without biliary obstruction Cholecystitis presence: without cholecystitis Cholelithiasis location: gallbladder Qualified Code(s): K80.20 - Calculus of gallbladder without cholecystitis without obstruction
[2021-10-15] MEDS ORDERED: predniSONE 2.5 MG TAB PO SCH (09:00)
[2021-10-15] MEDS: INSULIN ASPART PER UNIT SC SCH ×4 (09:25→21:33)
[2021-10-15] MEDS: dilTIAZem HCL 240 MG CAPCR PO SCH (09:32)
[2021-10-15] MEDS: IRBESARTAN 150 MG TAB PO SCH (09:32)
[2021-10-15] MEDS: TAMSULOSIN HCL 0.4 MG CAP PO SCH (09:33)
[2021-10-15] MEDS: APIXABAN 5 MG TABLET PO SCH ×2 (09:33→20:59)
[2021-10-15 11:45] LABS: iSTAT Arterial Blood Gas pCO2 34 mmHg (35-46); iSTAT Arterial Blood Gas pH 7.51 (7.35-7.45); iSTAT Arterial Blood Gas pO2 57 mmHg (80-95); iSTAT Carbon Dioxide 28 mmol/L (24-31); iSTAT Hematocrit 35 % (37-47); iSTAT Hemoglobin 11.9 g/dl (12.0-16.0); iSTAT Potassium 3.5 mmol/L (3.3-5.0); iSTAT Sodium 130 mmol/L (135-144)
[2021-10-15 11:46] LABS: iSTAT Arterial Blood Gas HCO3 27 meg/L (19-24)
[2021-10-15] MEDS: AZITHROMYCIN 250 MG in DEXTROSE 5% 250 ML IV SCH (21:17)
--- NOTE | 2021-10-15 23:03 | XCELERA ---
[id number] \\[id number]
[2021-10-16] MEDS: [UNRECOGNIZED DRUG - OTHER] SCH ×5 (00:26→23:50)
[2021-10-16] MEDS: HYDROCORTISONE SOD 50 MG in SYRINGE 0 ML IV SCH ×2 (03:14→10:57)
[2021-10-16] MEDS: CEFEPIME 2,000 MG in SYRINGE 0 ML IV SCH (05:53)
[2021-10-16 07:04] LABS: Basophils # (auto) 0.01 K/uL (0-0.2); Basophils % (auto) 0.1 %; Eosinophils # (auto) 0.06 K/uL (0-0.5); Eosinophils % (auto) 0.5 %; Hematocrit (blood only) 35.5 % (37-47); Immature Granulocytes % (auto) 0.8 %; Lymphocytes % (auto) 5.9 %; Mean Corpuscular Hemoglobin 30.8 pg (25-34); Mean Corpuscular Hgb Conc 33.8 g/dL (32-36); Mean Platelet Volume 9.8 fL (7.4-10.4); Monocytes # (auto) 0.66 K/uL (0.11-0.59); Monocytes % (auto) 5.6 %; Neutrophils # (auto) 10.29 K/uL (1.4-6.5); Neutrophils % (auto) 87.1 %; Platelet Count 232 K/uL (130-400); RDW Coefficient of Variation 17.4 % (11.5-14.5); RDW Standard Deviation 57.3 fL (36.4-46.3); White Blood Count 11.82 K/uL (4.8-10.8)
[2021-10-16 07:23] LABS: BUN Creatinine Ratio 31.8 (10-20); Calcium 12.2 mg/dl (8.5-10.1); Creatinine Clr Calc Pharmacy 54.4 ml/min; Est GFR (African American) 76.1 ml/min; Est GFR (Non-African American) 65.6 ml/min; Magnesium 1.5 mg/dl (1.7-2.4); Potassium 3.6 mmol/L (3.5-5.1)
[2021-10-16] MEDS: HYDROCODONE/ACETAMOPHEN 5/325MG TAB PO PRN ×2 (07:51→16:28)
--- NOTE | 2021-10-16 08:18 | Hospitalist Progress Note ---
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 Multifocal pneumonia: -CTA w/ interstitial thickening and airspace opacities represent interstitial edema w/ alveolar edema &/or PNA -COVID & RVP negative. -WBC 11.82, MRSA negative, procal 0.11. -Blood cultures negative at 24 hours, Fungitell pending. -Bacterial vs. viral vs. pulmonary edema -Started on Vancomycin, Cefepime, Azithromycin on 10/14. D/C'ed Vanc due to MRSA negative -Pulmonology consulted -?PJP, started Bactrim (patient taken before w/o issue), ordered PJP PCR -D/C Cefepime, complete 5 days Azithromycin. -Follow cultures Acute respiratory failure with hypoxia requiring high flow NC -Hypoxic to 83% in ED requiring High Flow O2. -CTA negative for PE. -?Pneumonia induced vs CHF -Given 20mg IV Lasix in on admission -Echo w/ EF 60-65%, Borderline pulmonary HTN. -Pulmonology consulted -DC hydrocortisone, start patient on Solu-Medrol 40mg BID. -Bronchoscopy may be beneficial, will need to be off Eliquis for 48 hours. -Continue supportive care. Hypercalcemia: -Ca of ~11-12 past few months. -Ca 12.4, ionized Ca 1.43, Mg 1.2 on arrival. -Outpatient workup - PTH, PTHrP low; Vitamin D WNL -No foods or medications with high calcium. -CT negative for signs of sarcoidosis. -APOLLO level WNL. -Pulmonology consulted - ordered NAMAN w/ reflex, RF, anti-CCP -Received IVF, repeat Ca 11.4, ionized Ca 1.39 -Patient received dose of Calcitonin 4units/kg, Zolendronic acid 4mg. 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 Navarro outpatient -Continue home prednisone and MTX. Tachy-sylvia syndrome: -Afib with tachy-sylvia syndrome s/p pacemaker -Rate controlled. -Continue home Eliquis and Diltiazem. Hypomagnesemia: -Mg 1.2 on arrival. -Mg 1.5 this AM. Repleted 3g. DMII (diabetes mellitus, type 2): -Hold metformin -SSI DVT Prophylaxis: Eliquis 5mg BID F/E/N/GI: Carb consistent T2DM Code Status: Full Code Dispo: PCU Admission and Anticipated Discharge Date Admission Date: October 14, 2021 Supervising Physician Co-Signing Physician Notes Resident Physician Supervision Note: I independently interviewed and examined the patient and verified the villanueva history and physical, reviewed labs and image studies and agree with resident Dr. Melendez findings and care plan. Subjective Patient seen at the bedside today. Patient states she is feeling well today, eating well. Denies fevers, chills, shortness of breath, chest pain, nausea. Review of Systems Constitutional: as per Subjective / HPI Physical Exam Constitutional: WD/WN, vitals as above Respiratory: normal respiratory effort, lungs clear to auscultation Cardiovascular: RRR, no murmur, no edema Gastrointestinal (Abdomen): normal bowel sounds, soft, nontender, no hepatosplenomegaly Psychiatric: A+Ox3, euthymic affect Results & Data Results & Data ([facility]) Vital Signs (Past 12 Hours) Vital Signs Temp Pulse Pulse Resp BP Pulse Ox 10/16/21 07:19 36.8 C 110 H 25 H 144/72 H 98 10/16/21 07:12 76 24 95 10/16/21 03:25 36.9 C 64 114/50 L 90 10/16/21 02:30 76 20 93 10/15/21 23:15 37.0 C 72 24 129/71 94 10/15/21 23:00 71 10/15/21 22:15 72 20 92 Resident Activity Tracking Resident Involvement: Resident Care Provided Care Provided: Adult Hospital Medicine (1) Cholelithiasis Biliary obstruction: without biliary obstruction Cholecystitis presence: without cholecystitis Cholelithiasis location: gallbladder Qualified Code(s): K80.20 - Calculus of gallbladder without cholecystitis without obstruction
[2021-10-16] MEDS: INSULIN ASPART PER UNIT SC SCH ×4 (08:44→20:42)
[2021-10-16] MEDS: IRBESARTAN 150 MG TAB PO SCH (09:09)
[2021-10-16] MEDS: APIXABAN 5 MG TABLET PO SCH ×2 (09:09→21:00)
[2021-10-16] MEDS: TAMSULOSIN HCL 0.4 MG CAP PO SCH (09:10)
[2021-10-16] MEDS: dilTIAZem HCL 240 MG CAPCR PO SCH (09:10)
--- NOTE | 2021-10-16 10:10 | Pulmonary Consultation ---
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): (4) Abnormal chest CT: (5) Hypercalcemia: CT chest 10/14/2021 personally reviewed: Diffuse groundglass opacities appreciated bilaterally upper and lower lobes more pronounced in the upper lobes Interlobular thickening appreciated especially in the periphery in the lower lobes, resembling certain degree to crazy paving Note significant mediastinal lymphadenopathy Lower lungs on the CT abdomen pelvis done 09/30/2021 did show some mosaicism but no groundglass opacities or interlobular thickening --Acute hypoxic respiratory failure with multifocal bilateral groundglass opacities and interlobular thickening Covid-19 PCR negative Influenza A/B negative Respiratory bio fire negative Procalcitonin 0.11 CRP 4.4, ESR 47 BNP 69, 2D echo shows good ejection fraction Differential includes infectious along with noninfectious etiologies Infection atypical infection can present this way, rapid bio fire has been neg ative. Given that the patient was on methotrexate as well as prednisone (although low-d ose 7.5 mg) possibility of PJP is there NSIP-like pattern can present in similar way, autoimmune work-up has been ordered Diffuse alveolar hemorrhage can present same way as well along with PAP Patient does have hypercalcemia with low PTH. I do not see any mediastinal lymphadenopathy. Sarcoidosis is a possibility as well --Seronegative polyarthritis On methotrexate and prednisone --Hypercalcemia Plan: DC hydrocortisone and start the patient on Solu-Medrol 40 mg twice daily NAMAN with reflex has been ordered along with rheumatoid factor and anti-CCP Follow-up APOLLO level For hypercalcemia I would recommend calcitonin and a dose of biphosphonate. Will defer the management to primary team I would like to start the patient on PJP treatment with Bactrim, she does have history of No-Simon. Bactrim has been associated with Vipul Simon which does put me to think if atovaquone should be considered instead Patient has taken Bactrim in the past and should not have any issues with it. I will start the patient on Bactrim 3 double strength tablets 3 times daily which will be approximately 17-18 mg/kg of trimethoprim. Patient is not able to tolerate pantoprazole. Given that she is on Eliquis as well as I will give her Solu-Medrol. I will start the patient on Pepcid 20 mg t wice daily Bronchoscopy would be beneficial and the patient with looking at the oxygen requirement she will need to be intubated for the purpose She is also on apixaban, she needs to be off apixaban for at least 48 hours before considering bronchoscopy I will order induce sputum to be sent to [facility] lab for PJP PCR. BAL will still be the best modality but currently it is very high risk DC cefepime, complete 5 days of azithromycin All questions inquiries of the patient were answered in depth Case was discussed with RN Erica and Pharmacist Elin Please note the above document was generated using voice recognition software. It may contain grammatical, syntax or spelling errors.Any formal questions or concerns about the content, text or information contained within the body of this dictation should be directly addressed to the provider for clarification. History of Present Illness Attending Physician: Lita Eisenberg MD History of Present Illness 76-year-old female presented to the hospital for complaints of shortness of breath Past medical history: Seronegative polyarthritis on methotrexate 20 mg weekly along with prednisone 7.5 mg, A. fib on apixaban, tachybradycardia syndrome status post pacemaker, diabetes, GERD Pulmonary consulted for abnormal chest CT At the time of examination patient was saturating 97% on 35 L, 90% high flow Was walking the patient I was gradually able to go down on the FiO2 to 50% and she was still maintaining a saturation around 92-93% Patient states that she is feeling better since coming to the hospital She has been having issues with breathing for approximately 2 weeks but usually got worse to 3 days ago. She also had a fever of 101 She does cough and brings up clear phlegm. Occasionally it is blood-tinged. No dysuria, no diarrhea No headache, no blurry vision Patient has been taking methotrexate as well as prednisone since January 26, 2021. She was starting to taper her prednisone off starting July probably as per the patient There is family history of Behcet's disease in niece Patient's son is also taking methotrexate but he is unsure of the reason behind it Social history: Has tried cigarettes when she was a teenager. No alcohol use. 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 No birds or poultry nearby Allergies Allergy/AdvReac Type Severity Reaction Status Date / Time amoxicillin Allergy Intermediate "I FELT Verified 10/14/21 13:42 WORSE AFTER TAKING THE MEDICATION" hydroxychloroquine Allergy Intermediate HIVES HEAD Verified 10/14/21 13:42 [From Plaquenil] TO TOE pantoprazole Allergy Intermediate "DIDN'T Verified 10/14/21 13:42 FEEL WELL AND WENT INTO A-FIB" APOLLO Inhibitors AdvReac Intermediate COUGH Verified 10/14/21 13:42 Home Medications Medication Instructions Recorded Confirmed Type Incontinence pads. #100 ea 07/12/19 10/07/21 Rx incontinence pads #60 ea 07/12/19 10/07/21 Rx irbesartan 300 mg tablet 300 mg PO DAILY #90 tab 04/14/21 10/14/21 Rx triamcinolone acetonide 0.1 % 1 applic TOPICAL BID PRN #80 g 04/14/21 10/14/21 Rx topical cream diltiazem HCl 240 mg 240 mg PO DAILY #90 cap 06/09/21 10/14/21 Rx capsule,extended release 24 hr apixaban 5 mg tablet (Eliquis) 5 mg PO BID #180 tab 07/11/21 10/14/21 Rx folic acid 1 mg tablet 1 mg PO DAILY #90 tab 07/11/21 10/14/21 Rx metformin 500 mg tablet,extended 500 mg PO DAILY #90 tab 07/29/21 10/14/21 Rx release 24hr omeprazole 40 mg capsule,delayed 40 mg PO DAILY #30 cap 08/13/21 10/14/21 Rx release blood-glucose meter (Blood Glucose #50 ea 09/16/21 10/07/21 Rx Monitoring) methotrexate sodium 2.5 mg tablet 20 mg PO .weekly tab 09/16/21 10/14/21 Hi story prednisone 5 mg tablet 7.5 mg PO DAILY tab 09/30/21 10/14/21 History red yeast rice 600 mg capsule 1,200 mg PO DAILY 10/14/21 10/14/21 History tamsulosin 0.4 mg capsule 0.4 mg PO DAILY 10/14/21 10/14/21 History hydrocodone 5 mg-acetaminophen 325 See Rx Instructions PO Q6H PRN 10/15/21 Rx mg tablet #240 tab MDD 8 Patient History Medical History Benign essential hypertension Chronic low back pain Chronic narcotic use Chronic rhinitis Cystocele Diverticulosis Drug-induced diabetes mellitus Fibroadenoma of breast Gastroesophageal reflux disease Hearing loss Hyperlipidemia Hypokalemia Hypomagnesemia Hyponatremia Insomnia, persistent Left acoustic neuroma Left asymmetrical SNHL Left flank pain Leukocytosis Lumbar spinal stenosis Multiple thyroid nodules Osteopenia Paroxysmal atrial fibrillation Prediabetes Rectocele 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 Stress incontinence Ureteral calculus, left Urinary incontinence Vitamin D insufficiency Surgical History H/O breast surgery right--fibroadenoma History of cryosurgery cervix History of hysterectomy History of total bilateral knee replacement Family History Mother Diabetes Hypertension Breast cancer Father Hypertension Grandfather (Maternal) Myocardial infarction Grandfather (Paternal) Myocardial infarction Brother Hypertension Unknown Hyperlipidemia Denies family history of Ovarian cancer Prostate cancer Adverse anesthesia outcome Colorectal cancer Stroke Asthma Social History Smoking Status: Never smoker Second Hand Exposure: No; Hx Alcohol Use: No Hx Substance Use: No Preferred Language: Ethiopian Communication Ability: Effective Visual Impairment: Partially Limited Hearing Ability: Use of 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 Aid 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 Required: No Beliefs That Will Affect Care: None marital status: Current Living Situation: Spouse current occupational status: retired Feels Safe at Home: Yes Childhood Exposure to Second-Hand Smoke: No caffeine: Yes (coffee) during the past year weight has: remained stable Dental Care, Regularly: No Physical Activity Frequency: 3-4 Times per Week Seatbelt Use: always Sunscreen Use: Yes (sometimes) Do you think of yourself as: straight/heterosexual Assistive Devices: None Review of Systems Review of Systems: All systems reviewed & are unremarkable except as noted in HPI & below Physical Exam Physical Exam: Constitutional: No acute distress HEENT: EOMI, PERRLA Respiratory system: Decreased air entry bilaterally, no wheeze, no rhonchi, positive crackles bilaterally more on the left side CVS: S1-S2 positive, no murmurs or gallops Abdomen: Soft, nontender, nondistended, positive bowel sounds x4 Extremities: +2 pulses bilaterally radialis/ dorsalis pedis, no cyanosis, no edema, no rash Neuro: Awake alert oriented x3 Psych: Normal mood and affect G/U: No Christopher Skin: no rashes, warm and dry Lymphatic: no cervical or axillary lymphadenopathy Results & Data Results & Data ([facility]) Vital Signs (Past 12 Hours) Vital Signs Temp Pulse Pulse Resp BP Pulse Ox 10/16/21 07:19 36.8 C 110 H 25 H 144/72 H 98 10/16/21 07:12 76 24 95 10/16/21 03:25 36.9 C 64 114/50 L 90 10/16/21 02:30 76 20 93 10/15/21 23:15 37.0 C 72 24 129/71 94 10/15/21 23:00 71 10/15/21 22:15 72 20 92 Laboratory Results 10/16/21 06:41 10/16/21 06:41 PG Care Time/CCT Total # of Minutes Spent Total Time Spent with Patient: Total time spent is greater than 50% in coordination of care (as documented) at patient's floor/unit and/or counseling patient: [place] [address] Initial Inpt Care Lvl 3 Patient Type New Diagnoses Multifocal pneumonia J18.9 Acute and chronic respiratory failure with hypoxia J96.21 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
[2021-10-16] MEDS: MAGNESIUM SULFATE / D5W 1 GM/100 ML BAG IV SCH ×3 (11:07→14:14)
[2021-10-16] MEDS: SULFAMETHOXAZOLE/TRIMETHOPRIM DS 800/160MG TAB PO SCH ×2 (14:14→20:57)
[2021-10-16] MEDS ORDERED: CEFEPIME 2,000 MG in SYRINGE 0 ML IV SCH (18:00)
[2021-10-16] MEDS ORDERED: ZOLEDRONIC ACID 5 MG in EMPTY BAG 1 ML IV ONE (18:40)
[2021-10-16] MEDS ORDERED: CALCITONIN SALMON 400 UNITS/2 ML SQ ONE (18:44)
[2021-10-16] MEDS ORDERED: ZOLEDRONIC ACID 4 MG in 0.9 % SODIUM CHLORIDE 100 ML IV ONE (19:15)
[2021-10-16] MEDS: ONDANSETRON INJ 2 MG/ML 2 ML VIAL IV PRN (20:56)
[2021-10-16] MEDS: AZITHROMYCIN 250 MG in DEXTROSE 5% 250 ML IV SCH (20:57)
[2021-10-16] MEDS: FAMOTIDINE 20 MG TAB PO SCH (20:57)
[2021-10-16] MEDS: methylPREDNISolone 40 MG in SYRINGE 0 ML IV SCH (20:58)
[2021-10-17] MEDS: HYDROCODONE/ACETAMOPHEN 5/325MG TAB PO PRN ×2 (00:21→18:49)
[2021-10-17 06:08] LABS: Eosinophils # (auto) 0.01 K/uL (0-0.5); Eosinophils % (auto) 0.1 %; Hematocrit (blood only) 34.5 % (37-47); Hemoglobin 11.6 g/dL (12.0-16.0); Immature Granulocytes # (auto) 0.05 K/uL (0.00-0.02); Immature Granulocytes % (auto) 0.6 %; Lymphocytes # (auto) 0.65 K/uL (1.2-3.4); Lymphocytes % (auto) 7.5 %; Mean Corpuscular Hemoglobin 30.9 pg (25-34); Mean Corpuscular Hgb Conc 33.6 g/dL (32-36); Mean Platelet Volume 9.8 fL (7.4-10.4); Monocytes % (auto) 4.6 %; Neutrophils # (auto) 7.53 K/uL (1.4-6.5); Neutrophils % (auto) 87.2 %; Platelet Count 246 K/uL (130-400); RDW Coefficient of Variation 16.9 % (11.5-14.5); RDW Standard Deviation 56.8 fL (36.4-46.3); Red Blood Count 3.75 M/uL (4.2-5.4); White Blood Count 8.64 K/uL (4.8-10.8)
[2021-10-17 06:32] LABS: Albumin Level 3.6 gm/dl (3.4-5.0); BUN Creatinine Ratio 28.3 (10-20); Calcium 10.7 mg/dl (8.5-10.1); Creatinine Clr Calc Pharmacy 39.5 ml/min; Est GFR (African American) 50.1 ml/min; Est GFR (Non-African American) 43.3 ml/min; Magnesium 1.7 mg/dl (1.7-2.4); Potassium 4.3 mmol/L (3.5-5.1)
--- NOTE | 2021-10-17 06:43 | Hospitalist Progress Note ---
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 Multifocal pneumonia: -CTA w/ interstitial thickening and airspace opacities represent interstitial edema w/ alveolar edema &/or PNA -COVID & RVP negative. -WBC 11.82, MRSA negative, procal 0.11. -Blood cultures negative at 24 hours, Fungitell pending. -Bacterial vs. viral vs. pulmonary edema -Started on Vancomycin, Cefepime, Azithromycin on 10/14. D/C'ed Vanc due to MRSA negative -Pulmonology consulted -?PJP, started Bactrim (patient taken before w/o issue), ordered PJP PCR -D/C Cefepime, complete 5 days Azithromycin. -Follow cultures Acute respiratory failure with hypoxia requiring high flow NC -Hypoxic to 83% in ED requiring High Flow O2. -CTA negative for PE. -?Pneumonia induced vs CHF -Given 20mg IV Lasix in on admission -Echo w/ EF 60-65%, Borderline pulmonary HTN. -Pulmonology consulted -DC hydrocortisone, start patient on Solu-Medrol 40mg BID. -Bronchoscopy may be beneficial, will need to be off Eliquis for 48 hours. -Holding Eliquis AM of 10/18, putting on heparin drip for bronchoscopy. Hypercalcemia: -Ca of ~11-12 past few months. -Ca 12.4, ionized Ca 1.43, Mg 1.2 on arrival. -Outpatient workup - PTH, PTHrP low; Vitamin D WNL -No foods or medications with high calcium. -CT negative for signs of sarcoidosis. -APOLLO level WNL. -Pulmonology consulted - ordered NAMAN w/ reflex, RF, anti-CCP -Received IVF, repeat Ca 11.4, ionized Ca 1.39 -Patient received dose of Calcitonin 4units/kg, Zolendronic acid 4mg. 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 Navarro outpatient -Continue home prednisone and MTX. Tachy-sylvia syndrome: -Afib with tachy-sylvia syndrome s/p pacemaker -Rate controlled. -Continue home Eliquis and Diltiazem. Hypomagnesemia: -Mg 1.2 on arrival. -Mg 1.5 this AM. Repleted 3g. DMII (diabetes mellitus, type 2): -Hold metformin -SSI DVT Prophylaxis: Eliquis 5mg BID F/E/N/GI: Carb consistent T2DM Code Status: Full Code Dispo: PCU Admission and Anticipated Discharge Date Admission Date: October 14, 2021 Supervising Physician Co-Signing Physician Notes Resident Physician Supervision Note: I independently interviewed and examined the patient and verified the villanueva history and physical, reviewed labs and image studies and agree with resident Dr. Melendez findings and care plan. Subjective Patient feeling same as yesterday, not feeling short of breath or with any chest pain, fevers, chills. She is just somewhat anxious Review of Systems Constitutional: as per Subjective / HPI Physical Exam Constitutional: WD/WN, vitals as above Respiratory: normal respiratory effort, lungs clear to auscultation Cardiovascular: RRR, no murmur, no edema Gastrointestinal (Abdomen): normal bowel sounds, soft, nontender, no hepatosplenomegaly Psychiatric: A+Ox3, euthymic affect Results & Data Results & Data ([facility]) Vital Signs (Past 12 Hours) Vital Signs Temp Pulse Pulse Resp BP Pulse Ox 10/17/21 04:02 36.9 C 65 18 111/56 L 90 10/17/21 03:38 72 15 89 L 10/16/21 23:59 37.1 C 71 24 135/63 94 10/16/21 23:55 75 20 91 10/16/21 23:00 67 10/16/21 20:55 71 20 90 10/16/21 19:22 36.9 C 65 18 117/58 L 98 Resident Activity Tracking Resident Involvement: Resident Care Provided Care Provided: Adult Hospital Medicine (1) Cholelithiasis Biliary obstruction: without biliary obstruction Cholecystitis presence: without cholecystitis Cholelithiasis location: gallbladder Qualified Code(s): K80.20 - Calculus of gallbladder without cholecystitis without obstruction
--- NOTE | 2021-10-17 07:52 | Pulmonology Progress Note ---
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): (4) Abnormal chest CT: (5) Hypercalcemia: Plan: CT chest 10/14/2021 personally reviewed: Diffuse groundglass opacities appr eciated bilaterally upper and lower lobes more pronounced in the upper lobes Interlobular thickening appreciated especially in the periphery in the lower lobes, resembling certain degree to crazy paving Note significant mediastinal lymphadenopathy Lower lungs on the CT abdomen pelvis done 09/30/2021 did show some mosaicism but no groundglass opacities or interlobular thickening --Acute hypoxic respiratory failure with multifocal bilateral groundglass opacities and interlobular thickening Covid-19 PCR negative Influenza A/B negative Respiratory bio fire negative Procalcitonin 0.11 CRP 4.4, ESR 47 LDH 316, CPK 23 APOLLO level 58 BNP 69, 2D echo shows good ejection fraction Differential includes infectious along with noninfectious etiologies Infection atypical infection can present this way, rapid bio fire has been negative. Given that the patient was on methotrexate as well as prednisone (although low- dose 7.5 mg) possibility of PJP is there NSIP-like pattern can present in similar way, autoimmune work-up has been ordered Diffuse alveolar hemorrhage can present same way as well along with PAP Patient does have hypercalcemia with low PTH. I do not see any mediastinal lymphadenopathy. Sarcoidosis is a possibility as well --Seronegative polyarthritis On methotrexate and prednisone --Hypercalcemia management as per Primary team NAMAN with reflex has been ordered along with rheumatoid factor and anti-CCP Follow-up sputum PJP PCR Plan: In/out: -313, urine output 1500 mL. Total -1 L since coming to the hospital Chest x-ray from today shows significant improvement in bilateral opacities. Bactrim was started just yesterday I doubt this is all because of Bactrim. I do think steroids are helping along with diuresis Would continue with Bactrim for the time being. Bactrim has been associated with hyponatremia. Would keep a close eye on sodium. If it is starting to creep low sodium tablets can be given Bronchoscopy would be beneficial and the patient with looking at the oxygen requirement she will need to be intubated for the purpose She is also on apixaban, she needs to be off apixaban for at least 48 hours before considering bronchoscopy Case was discussed with Dr Eisenberg Please note the above document was generated using voice recognition software. It may contain grammatical, syntax or spelling errors.Any formal questions or concerns about the content, text or information contained within the body of this dictation should be directly addressed to the provider for clarification. Admission and Anticipated Discharge Date Admission Date: October 14, 2021 Subjective Patient seen and examined at bedside. No acute distress, no adverse events overnight. She was saturating 95-96% on 30 L, 50% FiO2 I was able to go down to 40% and she was still saturating 93%. Overall she stated that she is feeling better. Coughing up bringing up BrezTri phlegm. Denies any fever. No nausea or vomiting. No headache, no blurry vision Review of Systems Review of Systems: All systems reviewed & are unremarkable except as noted in HPI & below Physical Exam Physical Exam: Constitutional: No acute distress HEENT: EOMI, PERRLA Respiratory system: Decreased air entry bilaterally, no wheeze, no rhonchi, positive crackles bilaterally more on the left side CVS: S1-S2 positive, no murmurs or gallops Abdomen: Soft, nontender, nondistended, positive bowel sounds x4 Extremities: +2 pulses bilaterally radialis/ dorsalis pedis, no cyanosis, no edema, no rash Neuro: Awake alert oriented x3 Psych: Normal mood and affect G/U: No Christopher Skin: no rashes, warm and dry Lymphatic: no cervical or axillary lymphadenopathy Results & Data Results & Data ([facility]) Vital Signs (Past 12 Hours) Vital Signs Temp Pulse Pulse Resp BP Pulse Ox 10/17/21 04:02 36.9 C 65 18 111/56 L 90 10/17/21 03:38 72 15 89 L 10/16/21 23:59 37.1 C 71 24 135/63 94 10/16/21 23:55 75 20 91 10/16/21 23:00 67 10/16/21 20:55 71 20 90 Laboratory Results 10/17/21 05:54 10/17/21 05:54 PG Care Time/CCT Total # of Minutes Spent Total Time Spent with Patient: Total time spent is greater than 50% in coordination of care (as documented) at patient's floor/unit and/or counseling patient: Coding [place] [address] Subseq Hosp Care Lvl 2 Patient Type Established Diagnoses Multifocal pneumonia J18.9 Acute and chronic respiratory failure with hypoxia J96.21 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
[2021-10-17] MEDS: INSULIN ASPART PER UNIT SC SCH ×4 (08:00→20:42)
[2021-10-17] MEDS: FAMOTIDINE 20 MG TAB PO SCH ×2 (08:11→20:38)
[2021-10-17] MEDS: TAMSULOSIN HCL 0.4 MG CAP PO SCH (08:12)
--- NOTE | 2021-10-17 08:12 | XRay Report ---
XR chest 1V portable HISTORY: 76 years-old Female f/u acute shortness of breath COMPARISON: Chest radiograph and CTA chest 10/14/2021 TECHNIQUE: Portable AP view of the chest FINDINGS: Cardiac silhouette is mildly enlarged. Left subclavian pacer. Moderately improved mixed interstitial and alveolar opacities. Airspace opacities are now most pronounced within the lateral right lung base . No pneumothorax. Trace right pleural effusion. Degenerative changes of the shoulders and spine. IMPRESSION: 1. Cardiomegaly with moderately improved mixed interstitial and alveolar opacities. 2. Trace right pleural effusion. ACT 112: Negative or not required by law. The above report was generated using voice recognition software. It may contain grammatical, syntax o r spelling errors. Electronically signed by: Morteza Pool M.D. 10/17/2021 8:10 AM
[2021-10-17] MEDS: APIXABAN 5 MG TABLET PO SCH ×2 (08:14→20:37)
[2021-10-17] MEDS: IRBESARTAN 150 MG TAB PO SCH (08:14)
[2021-10-17] MEDS: SULFAMETHOXAZOLE/TRIMETHOPRIM DS 800/160MG TAB PO SCH ×3 (08:14→20:38)
[2021-10-17] MEDS: dilTIAZem HCL 240 MG CAPCR PO SCH (08:15)
[2021-10-17] MEDS: [UNRECOGNIZED DRUG - OTHER] SCH (08:16)
[2021-10-17] MEDS: methylPREDNISolone 40 MG in SYRINGE 0 ML IV SCH ×2 (10:06→20:38)
[2021-10-17] MEDS ORDERED: MAGNESIUM SULFATE / D5W 1 GM/100 ML BAG IV ONE (14:12)
[2021-10-17] MEDS ORDERED: SODIUM CHLORIDE 1 GM TABLET PO ONE (14:13)
[2021-10-17] MEDS: Heparin IV Adult Wt-Based Standard *NO* Bolus Protocol IV SCH ×2 (15:17→15:18)
[2021-10-17] MEDS: ONDANSETRON INJ 2 MG/ML 2 ML VIAL IV PRN (18:45)
[2021-10-17] MEDS ORDERED: POLYETHYLENE (MIRALAX) 17 GM PACK PO PRN (19:49)
[2021-10-17] MEDS: DOCUSATE SODIUM/SENNA 50/8.6MG TAB PO SCH (20:47)
[2021-10-17] MEDS: AZITHROMYCIN 250 MG in DEXTROSE 5% 250 ML IV SCH (21:40)
[2021-10-18 01:26] LABS: Anti Nuclear Antibody Screen NEGATIVE (NEGATIVE); Anti-SS-A <1.0 NEG AI (<1.0 NEG); Anti-SS-B <1.0 NEG AI (<1.0 NEG); Cyclic Citrullinated Pep IgG <16 UNITS; Rheumatoid Factor <14 IU/mL (<14)
[2021-10-18] MEDS: ONDANSETRON INJ 2 MG/ML 2 ML VIAL IV PRN ×3 (03:14→15:52)
[2021-10-18] MEDS: HYDROCODONE/ACETAMOPHEN 5/325MG TAB PO PRN ×4 (03:21→23:22)
[2021-10-18 06:27] LABS: Eosinophils # (auto) 0.01 K/uL (0-0.5); Eosinophils % (auto) 0.1 %; Hematocrit (blood only) 31.2 % (37-47); Hemoglobin 10.8 g/dL (12.0-16.0); Immature Granulocytes # (auto) 0.11 K/uL (0.00-0.02); Immature Granulocytes % (auto) 0.7 %; Lymphocytes # (auto) 0.94 K/uL (1.2-3.4); Lymphocytes % (auto) 6.1 %; Mean Corpuscular Hemoglobin 30.8 pg (25-34); Mean Corpuscular Hgb Conc 34.6 g/dL (32-36); Mean Corpuscular Volume 88.9 fL (80-100); Mean Platelet Volume 10.3 fL (7.4-10.4); Monocytes # (auto) 0.89 K/uL (0.11-0.59); Monocytes % (auto) 5.8 %; Neutrophils # (auto) 13.37 K/uL (1.4-6.5); Neutrophils % (auto) 87.3 %; Platelet Count 238 K/uL (130-400); RDW Standard Deviation 54.9 fL (36.4-46.3); Red Blood Count 3.51 M/uL (4.2-5.4); White Blood Count 15.32 K/uL (4.8-10.8)
[2021-10-18 06:45] LABS: Calcium 10.2 mg/dl (8.5-10.1); Creatinine Clr Calc Pharmacy 36.8 ml/min; Est GFR (African American) 45.5 ml/min; Est GFR (Non-African American) 39.3 ml/min; Potassium 4.6 mmol/L (3.5-5.1)
--- NOTE | 2021-10-18 07:01 | Hospitalist Progress Note ---
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 Multifocal pneumonia: -CTA w/ interstitial thickening and airspace opacities represent interstitial edema w/ alveolar edema &/or PNA -COVID & RVP negative. -WBC increased to 15.32, from 8.6 today, MRSA negative, procal 0.11 on admission, new procal ordered also normal. -Blood cultures negative, Fungitell pending. -Etiology bacterial vs. viral vs. pulmonary edema -Started on Vancomycin, Cefepime, Azithromycin on 10/14. D/C'ed Vanc due to MRSA negative -Pulmonology consulted -On suspicion for PJP, Bactrim started (day 08/04), ordered PJP PCR. -D/C Cefepime, continue 5 day course of Azithromycin (day 45). -Was put on stress dose hydrocortisone. Switched to Solu-Medrol 40mg BID for possible PJP -Bronchoscopy may be beneficial, will need to be off Eliquis for 48 hours. -Holding Eliquis AM of 10/18, putting on heparin drip for bronchoscopy. Hyponatremia -Pt. chronically hyponatremic at baseline, usually in the low 130s (130-132). -Sodium levels noticeably dropped in the last 2 days, to 124 today, from 131. -Drop coincides w/ start of Bactrim, Lasix (for empiric Pneumocystis jirovecii coverage, and hypervolemic fluid status respectively). -Given pt's current euvolemia, also suspect SIADH 2/2 pneumonia. -Plan to fluid restrict 1.5 L/day, repeat BMP scheduled for this evening. Elevated creatinine -1.3 this morning, up from 1.2. -On recommendation of pulmonary firer kiln, gave 0.5 L NSS today. -Repeat BMP scheduled for this evening Acute respiratory failure with hypoxia requiring high flow NC -Hypoxic to 83% in ED requiring High Flow O2. -CTA negative for PE. -?Pneumonia induced vs CHF -Given 20mg IV Lasix in on admission -Echo w/ EF 60-65%, Borderline pulmonary HTN. Hypercalcemia: -Ca of ~11-12 past few months. -Ca 12.4, ionized Ca 1.43, Mg 1.2 on arrival. -Outpatient workup - PTH, PTHrP low; Vitamin D WNL -No foods or medications with high calcium. -CT negative for signs of sarcoidosis. -APOLLO level WNL. -Pulmonology consulted - ordered NAMAN w/ reflex, RF, anti-CCP -Received IVF, repeat Ca 11.4, ionized Ca 1.39 -Patient received dose of Calcitonin 4units/kg, Zolendronic acid 4mg. -Ca today 10.2. Re-check in the AM. 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 Navarro outpatient -MTX on hold. continue steroids - home prednisone 5mgs daily. Currently on IV dose steroids due to concern of PJP pneumonia Tachy-sylvia syndrome: -Afib with tachy-sylvia syndrome s/p pacemaker -Rate controlled. -Continue home Eliquis and Diltiazem. Hypomagnesemia: -Mg 1.2 on arrival. -Mg 1.5 this AM. Repleted 3g. 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 Subjective Pt awake and seated upright in bed this morning. She feels "off" this morning but doesn't know why. She also reports nausea, despite being on Zofran. Otherwise, she denies dyspnea or dizziness. Review of Systems Review of Systems: All systems reviewed & are unremarkable except as noted in HPI & below Physical Exam Physical Exam: General: Well-appearing, alert, interactive, and in no acute distress. HEENT: Normocephalic, atraumatic. EOM intact. Good conjugate gaze. Nares patent. Moist mucosal membranes. Tympanic membrane without bulging/fluid. Neck: Supple. No lymphadenopathy. Normal ROM. CV: Regular rate and rhythm. Normal S1 and S2. No murmurs gallops or rubs. No pedal edema. Respiratory: Normal respiratory effort. Bibasilar crackles and slight wheeze on expiration heard at mid lung castillo bilaterally. Abdomen: Soft, nondistended abdomen. No bruits heard on auscultation. No tenderness to deep palpation. No guarding or rebound. Extremities: Normal tone and ROM. Strength and sensation intact. Capillary refill <2 sec. 2+ dp equal bilaterally. Neuro: Alert and oriented x3. CN IIXII intact. Reflexes symmetric. Sensation normal. Gait normal. No dysmetria on ajaams-tw-lgic test. Skin: Intact, without rashes, lesions, or erythema. Results & Data Results & Data ([facility]) Vital Signs (Past 12 Hours) Vital Signs Temp Pulse Pulse Resp BP Pulse Ox 10/18/21 04:49 37.3 C 65 22 113/55 L 93 10/18/21 02:00 65 10/17/21 23:51 37.2 C 66 20 116/52 L 93 10/17/21 23:30 16 90 10/17/21 20:23 36.8 C 73 22 123/48 L 95 10/17/21 19:33 78 20 95 Resident Activity Tracking Resident Involvement: Resident Care Provided Care Provided: Adult Hospital Medicine (1) Cholelithiasis Biliary obstruction: without biliary obstruction Cholecystitis presence: without cholecystitis Cholelithiasis location: gallbladder Qualified Code(s): K80.20 - Calculus of gallbladder without cholecystitis without obstruction
[2021-10-18] MEDS: INSULIN ASPART PER UNIT SC SCH ×4 (09:15→21:18)
[2021-10-18] MEDS: dilTIAZem HCL 240 MG CAPCR PO SCH (09:26)
[2021-10-18] MEDS: methylPREDNISolone 40 MG in SYRINGE 0 ML IV SCH ×2 (09:26→21:25)
[2021-10-18] MEDS: IRBESARTAN 150 MG TAB PO SCH (09:27)
[2021-10-18] MEDS: DOCUSATE SODIUM/SENNA 50/8.6MG TAB PO SCH (09:27)
[2021-10-18] MEDS: SULFAMETHOXAZOLE/TRIMETHOPRIM DS 800/160MG TAB PO SCH ×2 (09:28→14:29)
[2021-10-18] MEDS: OMEPRAZOLE 20 MG CAPCR PO SCH (09:28)
[2021-10-18] MEDS: HEPARIN SODIUM/DEXTROSE 25,000 UNITS/500 ML BAG IV SCH (09:30)
[2021-10-18] MEDS: FAMOTIDINE 20 MG TAB PO SCH ×2 (09:35→21:26)
[2021-10-18] MEDS: TAMSULOSIN HCL 0.4 MG CAP PO SCH (09:35)
--- NOTE | 2021-10-18 11:17 | Pulmonology Progress Note ---
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): (4) Abnormal chest CT: (5) Hypercalcemia: Plan: CT chest 10/14/2021 personally reviewed: Diffuse groundglass opacities appr eciated bilaterally upper and lower lobes more pronounced in the upper lobes Interlobular thickening appreciated especially in the periphery in the lower lobes, resembling certain degree to crazy paving Note significant mediastinal lymphadenopathy Lower lungs on the CT abdomen pelvis done 09/30/2021 did show some mosaicism but no groundglass opacities or interlobular thickening --Acute hypoxic respiratory failure with multifocal bilateral groundglass opacities and interlobular thickening Covid-19 PCR negative Influenza A/B negative Respiratory bio fire negative Procalcitonin 0.11 CRP 4.4, ESR 47 LDH 316, CPK 23 APOLLO level 58 NT Ro/La negative, rheumatoid factor negative, NAMAN negative, anti-CCP negative BNP 69, 2D echo shows good ejection fraction Differential includes infectious along with noninfectious etiologies Infection atypical infection can present this way, rapid bio fire has been negative. Given that the patient was on methotrexate as well as prednisone (although low- dose 7.5 mg) possibility of PJP is there NSIP-like pattern can present in similar way, autoimmune work-up has been ordered Diffuse alveolar hemorrhage can present same way as well along with PAP Patient does have hypercalcemia with low PTH. I do not see any mediastinal lymphadenopathy. Sarcoidosis is a possibility as well --Seronegative polyarthritis On methotrexate and prednisone --Hypercalcemia management as per Primary team Follow-up sputum PJP PCR Plan: In/out: -247, urine output 900 mL Patient was saturating 94-95% on 6 L, I was able to go down to 5 L nasal cannula Patient did complain of nausea which could be secondary to Bactrim as well. Continue with Zofran for the nausea and if it is still very severe that she is not able to keep anything in then may be changing Bactrim to atovaquone could be thought of Hyponatremia is most likely coming from Bactrim. Recommend sodium chloride tablets Bronchoscopy would be beneficial and the patient with looking at the oxygen requirement she will need to be intubated for the purpose She is also on apixaban, she needs to be off apixaban for at least 48 hours before considering bronchoscopy Case was discussed with resident Dr Rivera Please note the above document was generated using voice recognition software. It may contain grammatical, syntax or spelling errors.Any formal questions or concerns about the content, text or information contained within the body of this dictation should be directly addressed to the provider for clarification. Admission and Anticipated Discharge Date Admission Date: October 14, 2021 Subjective Patient seen and examined at bedside. No acute distress She does complain of nausea early in the morning as well as last night for which she got Zofran. Denied any chest pain Shortness of breath is improved No headache, no blurry vision Fair appetite Review of Systems Review of Systems: All systems reviewed & are unremarkable except as noted in Subjective Physical Exam Physical Exam: Constitutional: No acute distress HEENT: EOMI, PERRLA Respiratory system: Decreased air entry bilaterally, no wheeze, no rhonchi, positive crackles bilaterally more on the left side CVS: S1-S2 positive, no murmurs or gallops Abdomen: Soft, nontender, nondistended, positive bowel sounds x4 Extremities: +2 pulses bilaterally radialis/ dorsalis pedis, no cyanosis, no edema, no rash Neuro: Awake alert oriented x3 Psych: Normal mood and affect G/U: No Christopher Skin: no rashes, warm and dry Lymphatic: no cervical or axillary lymphadenopathy Results & Data Results & Data ([facility]) Vital Signs (Past 12 Hours) Vital Signs Temp Pulse Pulse Resp BP Pulse Ox 10/18/21 07:16 36.9 C 71 17 114/60 94 10/18/21 04:49 37.3 C 65 22 113/55 L 93 10/18/21 02:00 65 10/17/21 23:51 37.2 C 66 20 116/52 L 93 10/17/21 23:30 16 90 Laboratory Results 10/18/21 06:02 10/18/21 06:02 PG Care Time/CCT Total # of Minutes Spent Total Time Spent with Patient: Total time spent is greater than 50% in coordination of care (as documented) at patient's floor/unit and/or counseling patient: Coding Level of Care Code 15528 Subseq Hosp Care Lvl 2 Diagnoses Multifocal pneumonia J18.9 Acute and chronic respiratory failure with hypoxia J96.21 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
[2021-10-18] MEDS ORDERED: SODIUM CHLORIDE 0.9% 500 ML IV SCH (11:45)
[2021-10-18 16:58] LABS: Calcium 10.2 mg/dl (8.5-10.1); Creatinine Clr Calc Pharmacy 30.6 ml/min; Est GFR (African American) 36.5 ml/min; Est GFR (Non-African American) 31.5 ml/min; Potassium 4.7 mmol/L (3.5-5.1)
[2021-10-18 17:27] LABS: Partial Thromboplastin Time 55.5 Seconds (21.0-31.0)
[2021-10-18] MEDS: AZITHROMYCIN 250 MG in DEXTROSE 5% 250 ML IV SCH (21:25)
[2021-10-18] MEDS: PROMETHAZINE HCL 25 MG/20 ML UDP PO PRN (21:34)
[2021-10-18 22:02] LABS: Fungitell (1-3)-B-D-Glucan >500 pg/mL
[2021-10-18] MEDS: ATOVAQUONE 750 MG/5 ML UDC PO SCH (23:04)
[2021-10-19 05:46] LABS: Basophils # (auto) 0.01 K/uL (0-0.2); Basophils % (auto) 0.1 %; Eosinophils # (auto) 0.01 K/uL (0-0.5); Eosinophils % (auto) 0.1 %; Hematocrit (blood only) 30.8 % (37-47); Hemoglobin 10.6 g/dL (12.0-16.0); Immature Granulocytes # (auto) 0.19 K/uL (0.00-0.02); Lymphocytes % (auto) 5.7 %; Mean Corpuscular Hemoglobin 30.7 pg (25-34); Mean Corpuscular Hgb Conc 34.4 g/dL (32-36); Mean Corpuscular Volume 89.3 fL (80-100); Mean Platelet Volume 10.2 fL (7.4-10.4); Monocytes # (auto) 1.32 K/uL (0.11-0.59); Monocytes % (auto) 6.8 %; Neutrophils # (auto) 16.67 K/uL (1.4-6.5); Neutrophils % (auto) 86.3 %; Platelet Count 246 K/uL (130-400); RDW Coefficient of Variation 16.9 % (11.5-14.5); RDW Standard Deviation 54.7 fL (36.4-46.3); Red Blood Count 3.45 M/uL (4.2-5.4)
[2021-10-19 06:22] LABS: Partial Thromboplastin Ratio 3.2
--- NOTE | 2021-10-19 06:38 | Hospitalist Progress Note ---
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 Multifocal pneumonia -CTA w/ interstitial thickening and airspace opacities represent interstitial edema w/ alveolar edema &/or PNA -COVID & RVP negative. -WBC increased to 15.32, from 8.6 today, MRSA negative, procal 0.11 on admission, new procal ordered also normal. -Blood cultures negative, Fungitell positive. -Etiology bacterial vs. viral vs. pulmonary edema -Started on Vancomycin, Cefepime, Azithromycin on 10/14. D/C'ed Vanc due to MRSA negative -Pulmonology consulted -For PJP, Bactrim started, PJP PCR ordered. Switched to Atovaquone. -Fungitell positive -Now on day 09/04 of PJP treatment. -Completed 5 day course of Azithromycin (day 09/18). -DCed hydrocortisone, started patient on Solu-Medrol 40mg BID. -Bronchoscopy may be beneficial, will need to be off Eliquis for 48 hours. -Held Eliquis 10/18, on heparin drip for bronchoscopy, tentatively scheduled to be performed by Dr. Benito Wednesday morning. Hyponatremia -Pt. chronically hyponatremic at baseline, usually in the low 130s (130-132). -Sodium levels have steadily but noticeably dropped in the last 2 days, to 124 today, from 131. -Drop coincides w/ start of Bactrim, Lasix (for empiric Pneumocystis jirovecii coverage, and hypervolemic fluid status respectively). -Given pt's current euvolemia, also suspect SIADH 2/2 pneumonia. -1.5 L/day fluid restriction. Trend a.m. BMP Elevated creatinine -Improving. Creatinine of 1.23 today, down from 1.56. -Patient responded well to 0.5 L bag NSS. Will consider a second bag tomorrow if creatinine fails to trend positively. -Trend a.m. BMP Acute respiratory failure with hypoxia requiring high flow NC -Hypoxic to 83% in ED requiring High Flow O2. -CTA negative for PE. -Given 20mg IV Lasix in on admission -Echo w/ EF 60-65%, Borderline pulmonary HTN. -Now on 5 L nasal cannula, saturating in the mid 90s. -Wean oxygen as tolerated. Hypercalcemia: -Ca of ~11-12 past few months. -Ca 12.4, ionized Ca 1.43, Mg 1.2 on arrival. -Outpatient workup - PTH, PTHrP low; Vitamin D WNL -No foods or medications with high calcium. -CT negative for signs of sarcoidosis. -APOLLO level WNL. -Pulmonology consulted - ordered NAMAN w/ reflex, RF, anti-CCP -Received IVF, repeat Ca 11.4, ionized Ca 1.39 -Patient received dose of Calcitonin 4units/kg, Zolendronic acid 4mg. -Ca today 9.5, down from 10.2 yesterday. Holding calcitonin and zoledronate for now. 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 Navarro outpatient -Continue home prednisone and MTX. Tachy-sylvia syndrome: -Afib with tachy-sylvia syndrome s/p pacemaker -Rate controlled. -Home Eliquis held, switched to heparin in anticipation of bronchoscopy Wednesday. Continued home diltiazem -Resume home Eliquis after bronchoscopy. Hypomagnesemia: -Mg 1.2 on arrival. -Mg 1.7 today. Repleted 4 g. 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 Rivera findings and care plan. Subjective Patient is awake and alert in bed this morning. She reports exertional dyspnea, constipation, and lower back pain. She denies nausea or abdominal pain. Review of Systems Review of Systems: All systems reviewed & are unremarkable except as noted in HPI & below Physical Exam Physical Exam: General: Well-appearing, alert, interactive, and in no acute distress. HEENT: Normocephalic, atraumatic. EOM intact. Good conjugate gaze. Nares patent. Moist mucosal membranes. Neck: Supple. No lymphadenopathy. Normal ROM. CV: Regular rate and rhythm. Normal S1 and S2. No murmurs gallops or rubs. No pedal edema. Respiratory: Normal respiratory effort. Bibasilar crackles and slight wheeze on expiration heard at mid lung castillo bilaterally. Abdomen: Soft, nondistended abdomen. No bruits heard on auscultation. No tenderness to deep palpation. No guarding or rebound. Extremities: Capillary refill <2 sec. 2+ dp equal bilaterally. Skin: Intact, without rashes, lesions, or erythema. Results & Data Results & Data ([facility]) Vital Signs (Past 12 Hours) Vital Signs Temp Pulse Pulse Resp BP Pulse Ox 10/19/21 04:49 36.3 C L 71 20 119/70 93 10/18/21 23:20 37.2 C 86 20 111/64 93 10/18/21 22:20 61 10/18/21 20:17 36.9 C 69 16 123/66 92 Resident Activity Tracking Resident Involvement: Resident Care Provided Care Provided: Adult Hospital Medicine (1) Cholelithiasis Biliary obstruction: without biliary obstruction Cholecystitis presence: without cholecystitis Cholelithiasis location: gallbladder Qualified Code(s): K80.20 - Calculus of gallbladder without cholecystitis without obstruction
[2021-10-19 06:56] LABS: Partial Thromboplastin Time 88.6 Seconds (21.0-31.0)
[2021-10-19 07:55] LABS: BUN Creatinine Ratio 30.1 (10-20); Calcium 9.5 mg/dl (8.5-10.1); Creatinine Clr Calc Pharmacy 38.8 ml/min; Est GFR (African American) 48.7 ml/min; Magnesium 1.7 mg/dl (1.7-2.4); Potassium 4.9 mmol/L (3.5-5.1)
--- NOTE | 2021-10-19 08:04 | XRay Report ---
SINGLE VIEW CHEST CLINICAL HISTORY: Dyspnea. FINDINGS: An AP, portable, upright chest radiograph is compared to study dated 10/17/2021 and correlate d with chest CT dated 10/14/2021. A 2-lead cardiac pacemaker is unchanged in position and partially ob scures the left upper chest. The heart is mildly enlarged. There is pulmonary vascular congestion. Bi lateral airspace opacities have modestly worsened as compared to 10/17/2021. Trace pleural effusions ar e suspected. No pneumothorax is seen. The skeletal structures are osteopenic. The bony thorax is cory sly intact. IMPRESSION: 1. Mild cardiomegaly and cardiac pacemaker. Pulmonary vascular congestion has modestly worsened as co mpared to 10/17/2021. 2. There are mild bilateral airspace opacities which may represent pulmonary edema. Correlate clinica lly for evidence of a superimposed infectious/inflammatory pneumonitis. 3. Trace pleural effusions. ACT 112: Negative or not required by law. Electronically signed by: Ilya Vasquez M.D. 10/19/2021 8:03 AM
[2021-10-19] MEDS ORDERED: SODIUM CHLORIDE 0.9% 1000ML 1,000 ML IV SCH (08:45)
[2021-10-19] MEDS: INSULIN ASPART PER UNIT SC SCH ×4 (08:45→20:55)
[2021-10-19] MEDS: ATOVAQUONE 750 MG/5 ML UDC PO SCH ×2 (08:51→21:11)
[2021-10-19] MEDS: dilTIAZem HCL 240 MG CAPCR PO SCH (08:51)
[2021-10-19] MEDS: FAMOTIDINE 20 MG TAB PO SCH ×2 (08:52→21:13)
[2021-10-19] MEDS: IRBESARTAN 150 MG TAB PO SCH (08:52)
[2021-10-19] MEDS: DOCUSATE SODIUM/SENNA 50/8.6MG TAB PO SCH (08:52)
[2021-10-19] MEDS: TAMSULOSIN HCL 0.4 MG CAP PO SCH (08:53)
[2021-10-19] MEDS: OMEPRAZOLE 20 MG CAPCR PO SCH (08:53)
[2021-10-19] MEDS: methylPREDNISolone 40 MG in SYRINGE 0 ML IV SCH ×2 (08:53→21:10)
[2021-10-19] MEDS: ACETAMINOPHEN 500 MG TAB PO SCH ×2 (10:12→18:15)
[2021-10-19] MEDS: HEPARIN SODIUM/DEXTROSE 25,000 UNITS/500 ML BAG IV SCH (10:50)
[2021-10-19] MEDS ORDERED: PATIROMER CALCIUM SORBITEX 8.4 GM PACK PO SCH (11:00)
--- NOTE | 2021-10-19 11:11 | Pulmonology Progress Note ---
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): (4) Abnormal chest CT: (5) Hypercalcemia: Plan: CT chest 10/14/2021 personally reviewed: Diffuse groundglass opacities appr eciated bilaterally upper and lower lobes more pronounced in the upper lobes Interlobular thickening appreciated especially in the periphery in the lower lobes, resembling certain degree to crazy paving Note significant mediastinal lymphadenopathy Lower lungs on the CT abdomen pelvis done 09/30/2021 did show some mosaicism but no groundglass opacities or interlobular thickening --Acute hypoxic respiratory failure with multifocal bilateral groundglass opacities and interlobular thickening Covid-19 PCR negative Influenza A/B negative Respiratory bio fire negative Procalcitonin 0.11 CRP 4.4, ESR 47 LDH 316, CPK 23 APOLLO level 58 Anti Ro/La negative, rheumatoid factor negative, NAMAN negative, anti-CCP negative BNP 69, 2D echo shows good ejection fraction Differential includes infectious along with noninfectious etiologies Infection atypical infection can present this way, rapid bio fire has been negative. Given that the patient was on methotrexate as well as prednisone (although low- dose 7.5 mg) possibility of PJP is there NSIP-like pattern can present in similar way, autoimmune work-up has been ordered Diffuse alveolar hemorrhage can present same way as well along with PAP Patient does have hypercalcemia with low PTH. I do not see any mediastinal lymphadenopathy. Sarcoidosis is a possibility as well --Seronegative polyarthritis On methotrexate and prednisone --Hypercalcemia management as per Primary team Follow-up sputum PJP PCR Plan: Bactrim was discontinued later last evening as patient's thought that she was having rash in the palm. I personally examined the patient today and there is no evidence of any rash. Given the history of Vipuljuana Montes's Bactrim was changed to atovaquone. Hyponatremia is most likely coming from previous Bactrim. Recommend sodium chloride tablets Bronchoscopy would be beneficial and the patient with looking at the oxygen requirement she will need to be intubated for the purpose Apixaban has been on hold since 10/17/2021. For possible bronchoscopy tomorrow with Dr. Benito. N.p.o. post midnight I did give the patient a dose of [place] Case was discussed with resident Dr Rivera Please note the above document was generated using voice recognition software. It may contain grammatical, syntax or spelling errors.Any formal questions or concerns about the content, text or information contained within the body of this dictation should be directly addressed to the provider for clarification. Admission and Anticipated Discharge Date Admission Date: October 14, 2021 Subjective Patient seen and examined at bedside. No acute distress, no episodes overnight. She was saturating 96% on 5 L nasal cannula at the time of examination at rest Was able to go down to 4 L. Overall she is feeling better. She was less nauseous compared to yesterday Able to tolerate p.o. diet. Later last evening she did complain of possible rash in the right arm which she thought that was similar to when she had No-Simon's. Bactrim was discontinued at that time and changed to atovaquone Review of Systems Review of Systems: All systems reviewed & are unremarkable except as noted in Subjective Physical Exam Physical Exam: Constitutional: No acute distress HEENT: EOMI, PERRLA Respiratory system: Decreased air entry bilaterally, no wheeze, no rhonchi, pos itive crackles bilaterally more on the left side CVS: S1-S2 positive, no murmurs or gallops Abdomen: Soft, nontender, nondistended, positive bowel sounds x4 Extremities: +2 pulses bilaterally radialis/ dorsalis pedis, no cyanosis, no edema, no rash Neuro: Awake alert oriented x3 Psych: Normal mood and affect G/U: No Christopher Skin: no rashes, warm and dry Lymphatic: no cervical or axillary lymphadenopathy Results & Data Results & Data ([facility]) Vital Signs (Past 12 Hours) Vital Signs Temp Pulse Pulse Resp BP Pulse Ox 10/19/21 07:45 61 10/19/21 07:44 36.8 C 74 18 124/63 95 10/19/21 04:49 36.3 C L 71 20 119/70 93 10/18/21 23:20 37.2 C 86 20 111/64 93 Laboratory Results 10/19/21 05:30 10/19/21 05:32 PG Care Time/CCT Total # of Minutes Spent Total Time Spent with Patient: Total time spent is greater than 50% in coordination of care (as documented) at patient's floor/unit and/or counseling patient: Coding Level of Care Code 10080 Subseq Hosp Care Lvl 2 Diagnoses Multifocal pneumonia J18.9 Acute and chronic respiratory failure with hypoxia J96.21 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
[2021-10-19] MEDS ORDERED: FLUCONAZOLE 100 MG TAB PO ONE (11:45)
[2021-10-19] MEDS: MAGNESIUM SULFATE / D5W 1 GM/100 ML BAG IV SCH ×4 (12:27→18:15)
[2021-10-19 13:51] LABS: Partial Thromboplastin Time 54.1 Seconds (21.0-31.0)
[2021-10-19] MEDS: AZITHROMYCIN 250 MG in DEXTROSE 5% 250 ML IV SCH (21:10)
[2021-10-19] MEDS: HYDROCODONE/ACETAMOPHEN 5/325MG TAB PO PRN (21:12)
[2021-10-19] MEDS: PROMETHAZINE HCL 25 MG/20 ML UDP PO PRN (22:17)
[2021-10-20 06:45] LABS: Eosinophils # (auto) 0.02 K/uL (0-0.5); Eosinophils % (auto) 0.1 %; Hematocrit (blood only) 32.2 % (37-47); Hemoglobin 10.9 g/dL (12.0-16.0); Immature Granulocytes # (auto) 0.44 K/uL (0.00-0.02); Lymphocytes # (auto) 1.18 K/uL (1.2-3.4); Lymphocytes % (auto) 5.5 %; Mean Corpuscular Hemoglobin 30.4 pg (25-34); Mean Corpuscular Hgb Conc 33.9 g/dL (32-36); Mean Corpuscular Volume 89.7 fL (80-100); Mean Platelet Volume 10.5 fL (7.4-10.4); Monocytes # (auto) 1.81 K/uL (0.11-0.59); Monocytes % (auto) 8.4 %; Neutrophils # (auto) 18.13 K/uL (1.4-6.5); Platelet Count 282 K/uL (130-400); RDW Coefficient of Variation 17.1 % (11.5-14.5); Red Blood Count 3.59 M/uL (4.2-5.4); White Blood Count 21.58 K/uL (4.8-10.8)
--- NOTE | 2021-10-20 06:49 | Hospitalist Progress Note ---
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 Multifocal pneumonia -CTA w/ interstitial thickening and airspace opacities represent interstitial edema w/ alveolar edema &/or PNA -COVID & RVP negative. -WBC increased to 15.32, from 8.6 today, MRSA negative, procal 0.11 on admission, new procal ordered also normal. -Blood cultures negative, Fungitell positive. -Etiology bacterial vs. viral vs. pulmonary edema -Started on Vancomycin, Cefepime, Azithromycin on 10/14. D/C'ed Vanc due to MRSA negative -Pulmonology consulted -For PJP, Bactrim started, PJP PCR ordered. Switched to Atovaquone. -Fungitell positive -Now on day 10/04 of PJP treatment. -Completed 5 day course of Azithromycin (day 09/18). -Completed high dose steroid - taper w/ prednisone 40mg 3 days, 20mg 11 days to complete course. -Performed bronchoscopy 10/20, no evidence of pulmonary hemorrhage. -PJP PCR pending. -Continue to wean O2 as tolerated. Hyponatremia -Pt. chronically hyponatremic at baseline, usually in the low 130s (130-132). -Sodium levels have steadily but noticeably dropped in the last 2 days, to 124 today, from 131. -Drop coincides w/ start of Bactrim, Lasix (for empiric Pneumocystis jirovecii coverage, and hypervolemic fluid status respectively). -Given pt's current euvolemia, also suspect SIADH 2/2 pneumonia. -1.5 L/day fluid restriction. Trend a.m. BMP Elevated creatinine -Improving. Creatinine of 1.00 today, down from 1.23. -Patient responded well to 0.5 L bag NSS. Will consider a second bag if creatinine fails to trend positively. -Trend a.m. BMP Acute respiratory failure with hypoxia requiring high flow NC -Hypoxic to 83% in ED requiring High Flow O2. -CTA negative for PE. -Given 20mg IV Lasix in on admission -Echo w/ EF 60-65%, Borderline pulmonary HTN. -Now on 5 L nasal cannula, saturating in the mid 90s. -Wean oxygen as tolerated. Hypercalcemia: -Ca of ~11-12 past few months. -Ca 12.4, ionized Ca 1.43, Mg 1.2 on arrival. -Outpatient workup - PTH, PTHrP low; Vitamin D WNL -No foods or medications with high calcium. -CT negative for signs of sarcoidosis. -APOLLO level WNL. -Pulmonology consulted - ordered NAMAN w/ reflex, RF, anti-CCP -Received IVF, repeat Ca 11.4, ionized Ca 1.39 -Patient received dose of Calcitonin 4units/kg, Zolendronic acid 4mg. -Ca today 9.3, down from 9.5 yesterday. Holding calcitonin and zoledronate for now. 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 Navarro outpatient -Continue home prednisone and MTX. Tachy-sylvia syndrome: -Afib with tachy-sylvia syndrome s/p pacemaker -Rate controlled. -Holding heparin at 21:00 tonight, restarting Eliquis BID. Continued home diltiazem -Resume home Eliquis after bronchoscopy. Hypomagnesemia: -Mg 1.2 on arrival. -Mg 1.7 today. Repleted 4 g. DMII (diabetes mellitus, type 2): -Hold metformin -SSI DVT Prophylaxis: Hold Heparin at 21:00, restart Eliquis BID tonight. 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): (6) Tachy-sylvia syndrome: (7) Hypomagnesemia: (8) DMII (diabetes mellitus, type 2): Admission and Anticipated Discharge Date Admission Date: October 14, 2021 Supervising Physician Co-Signing Physician Notes I personally examined the patient and verified all villanueva points of history and exam, discussed case, and agree with decision making with Dr Melendez feeling OK post bronch no new complaints otherwise pulmonary input apprecited vitals noted nad heent nc at mmm breathing unlabored no accessory muscles good effort skin no rashes no pallor or icterus pulmonary infection - treating as opportunistic/PJP, bronch done today, washings pending otherwise as above Subjective Patient seen at the bedside, feeling well today, denies shortness of breath, fevers, chills, chest pain. She is curious about why she had high calcium and would like to figure out exactly what was causing it. Review of Systems Constitutional: as per Subjective / HPI Physical Exam Constitutional: WD/WN, vitals as above Respiratory: normal respiratory effort, lungs clear to auscultation Cardiovascular: RRR, no murmur, no edema Gastrointestinal (Abdomen): normal bowel sounds, soft, nontender, no hepatosplenomegaly Psychiatric: A+Ox3, euthymic affect Results & Data Results & Data ([facility]) Vital Signs (Past 12 Hours) Vital Signs Temp Pulse Pulse Resp BP BP Pulse Ox 10/20/21 03:00 36.8 C 71 15 108/53 L 94 10/19/21 23:23 36.6 C 63 16 112/54 L 93 10/19/21 23:15 70 10/19/21 20:35 36.9 C 10/19/21 20:12 36.9 C 72 20 145/74 H 96 10/19/21 20:00 73 21 98 Resident Activity Tracking Resident Involvement: Resident Care Provided Care Provided: Adult Hospital Medicine (1) Cholelithiasis Biliary obstruction: without biliary obstruction Cholecystitis presence: without cholecystitis Cholelithiasis location: gallbladder Qualified Code(s): K80.20 - Calculus of gallbladder without cholecystitis without obstruction
[2021-10-20 07:12] LABS: Calcium 9.3 mg/dl (8.5-10.1); Creatinine Clr Calc Pharmacy 47.7 ml/min; Est GFR (African American) 62.5 ml/min; Est GFR (Non-African American) 53.9 ml/min; Potassium 4.9 mmol/L (3.5-5.1)
[2021-10-20 07:16] LABS: Partial Thromboplastin Ratio 3.2
[2021-10-20] MEDS: INSULIN ASPART PER UNIT SC SCH ×4 (07:29→20:53)
[2021-10-20 07:36] LABS: Partial Thromboplastin Time 88.1 Seconds (21.0-31.0)
--- NOTE | 2021-10-20 08:08 | Pulmonology Progress Note ---
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 Patient has been empirically treated with Bactrim (discontinued due to possible rash), atovaquone, fluconazole and Solu-Medrol. She is empirically improved but definitive diagnosis has not yet been obtained. Differential would include pulmonary manifestation of rheumatologic disorder (interstitial lung disease, pulmonary hemorrhage), opportunistic infection including pneumocystis, medication toxicity (methotrexate). Recommendations: 1. Abnormal CT scan: Serological evaluation unrevealing. The patient has been empirically treated and appears to be improving although a definitive diagnosis is required. Discussed risks and benefits of bronchoscopy with BAL with the patient. She is agreeable to proceed. We will schedule for later today. N.p.o. Hold heparin. 2. BNP normal and echocardiogram unrevealing. Hold on additional diuresis. 3. Continue atovaquone and prednisone currently. Discontinue Diflucan. Discontinue Solu-Medrol. She is already completed the high-dose steroid for 2 days so we will continue prednisone 40 mg a day for the next 3 days then decrease down to 20 mg a day for 11 days to complete course. Await PJP PCR and bronchoscopy specimens. 4. Continue to wean oxygen as tolerated. Target oxygen saturation of 90% 5. Will need close outpatient follow-up with outpatient rheumatology. Admission and Anticipated Discharge Date Admission Date: October 14, 2021 Subjective Patient seen and examined. EMR reviewed. Discussed with off going soil technician. The patient states that she is feeling better. She is coughing and her cough is slightly more productive. She is bringing up white phlegm with some occasional blood tinge in it. Her oxygen is down to 2 L nasal cannula. She is denying any chest pain. She overall feels better than being admitted to the hospital. No significant shortness of breath. She denies fevers chills night sweats or other constitutional symptoms. She is n.p.o. for bronchoscopy today. Review of Systems Review of Systems: All systems reviewed & are unremarkable except as noted in Subjective Physical Exam Constitutional: WD/WN, vitals as above ENMT: Mallampati Class: II Neck: trachea midline, no thyromegaly Respiratory: normal respiratory effort, lungs clear to auscultation Cardiovascular: RRR, no murmur, no edema Gastrointestinal (Abdomen): normal bowel sounds, soft, nontender, no hepatosplenomegaly Musculoskeletal: Extremities: extremities normal to inspection Skin: no rashes, warm and dry Neurologic: Nonfocal exam Lymphatic: no cervical lymphadenopathy Results & Data Results & Data ([facility]) Vital Signs (Past 12 Hours) Vital Signs Temp Pulse Pulse Resp BP BP Pulse Ox 10/20/21 07:54 36.9 C 73 17 138/66 95 10/20/21 07:15 65 10/20/21 03:00 36.8 C 71 15 108/53 L 94 10/19/21 23:23 36.6 C 63 16 112/54 L 93 10/19/21 23:15 70 10/19/21 20:35 36.9 C 10/19/21 20:12 36.9 C 72 20 145/74 H 96 10/19/21 20:00 73 21 98 Laboratory Results Pneumocystis PCR pending Bio t3n Magazin negative Fungitell positive at greater than 500 Rheumatoid and anti-CCP negative NAMAN screen negative Complements normal IgG elevated at 668 LDL elevated at 316 Procalcitonin negative x2 Blood cultures no growth to date Critical Care Results & Data Vital Signs (Past 12 Hours) Vital Signs Temp Pulse Pulse Resp BP BP Pulse Ox 10/20/21 07:54 36.9 C 73 17 138/66 95 10/20/21 07:15 65 10/20/21 03:00 36.8 C 71 15 108/53 L 94 10/19/21 23:23 36.6 C 63 16 112/54 L 93 10/19/21 23:15 70 10/19/21 20:35 36.9 C 10/19/21 20:12 36.9 C 72 20 145/74 H 96 10/19/21 20:00 73 21 98 Lab & Micro Results (Past 24 Hours) RBC 3.59 M/uL (4.2-5.4) L 10/20/21 WBC 21.58 K/uL (4.8-10.8) H 10/20/21 Hgb 10.9 g/dL (12.0-16.0) L 10/20/21 Hct 32.2 % (37-47) L 10/20/21 MCV 89.7 fL (80-100) 10/20/21 MCH 30.4 pg (25-34) 10/20/21 MCHC 33.9 g/dL (32-36) 10/20/21 RDW Standard Deviation 56.0 fL (36.4-46.3) H 10/20/21 RDW Coefficient of Variation 17.1 % (11.5-14.5) H 10/20/21 Plt Count 282 K/uL (130-400) 10/20/21 MPV 10.5 fL (7.4-10.4) H 10/20/21 Neutrophils (%) (Auto) 84.0 % 10/20/21 Lymphocytes (%) (Auto) 5.5 % 10/20/21 Monocytes # (Auto) 1.81 K/uL (0.11-0.59) H 10/20/21 Eosinophils # (Auto) 0.02 K/uL (0-0.5) 10/20/21 Immature Granulocyte % (Auto) 2.0 % 10/20/21 Neutrophils # (Auto) 18.13 K/uL (1.4-6.5) H 10/20/21 Lymphocytes # (Auto) 1.18 K/uL (1.2-3.4) L 10/20/21 Monocytes # (Auto) 1.81 K/uL (0.11-0.59) H 10/20/21 Eosinophils # (Auto) 0.02 K/uL (0-0.5) 10/20/21 Basophils # (Auto) 0.00 K/uL (0-0.2) 10/20/21 Immature Granulocyte # (Auto) 0.44 K/uL (0.00-0.02) H 10/20/21 Na 125 mmol/L (136-145) L 10/20/21 K 4.9 mmol/L (3.5-5.1) 10/20/21 Cl 94 mmol/L (98-107) L 10/20/21 CO2 23 mmol/L (21-32) 10/20/21 Anion Gap 8 (3-11) 10/20/21 BUN 36 mg/dl (6-23) H 10/20/21 Creatinine 1.00 mg/dl (0.6-1.2) 10/20/21 Estimated GFR ( Amer) 62.5 ml/min 10/20/21 Estimated GFR (Non-Af Amer) 53.9 ml/min 10/20/21 BUN/Creatinine Ratio 36.0 (10-20) H 10/20/21 Glu 203 mg/dl (70-99(Fasting)) H 10/20/21 Ca 9.3 mg/dl (8.5-10.1) 10/20/21 Calcium Level 9.3 mg/dl (8.5-10.1) 10/20/21 06:02 10/20/21 Microbiology 10/14/21 15:23 Aerobic Blood Culture - Final Blood No growth in Aerobic bottle after 5 days. Anaerobic Blood Culture - Final No growth in Anaerobic bottle after 5 days. 10/14/21 15:17 Aerobic Blood Culture - Final Blood No growth in Aerobic bottle after 5 days. Anaerobic Blood Culture - Final No growth in Anaerobic bottle after 5 days. Diagnostic Findings (Past 24 Hours) Chest X-Ray 10/19/21 07:00 SINGLE VIEW CHEST CLINICAL HISTORY: Dyspnea. FINDINGS: An AP, portable, upright chest radiograph is compared to study dated 10/17/2021 and correlated with chest CT dated 10/14/2021. A 2-lead cardiac pacemaker is unchanged in position and partially obscures the left upper chest. The heart is mildly enlarged. There is pulmonary vascular congestion. Bilateral airspace opacities have modestly worsened as compared to 10/17/2021. Trace pleural effusions are suspected. No pneumothorax is seen. The skeletal structures are osteopenic. The bony thorax is grossly intact. IMPRESSION: 1. Mild cardiomegaly and cardiac pacemaker. Pulmonary vascular congestion has modestly worsened as compared to 10/17/2021. 2. There are mild bilateral airspace opacities which may represent pulmonary edema. Correlate clinically for evidence of a superimposed infectious/inflammatory pneumonitis. 3. Trace pleural effusions. ACT 112: Negative or not required by law. Electronically signed by: Ilya Vasquez M.D. 10/19/2021 8:03 AM I & O Totals 24 Hours 10/19/21 10/20/21 10/21/21 06:59 06:59 06:59 Intake Total 1546.233 / 5454.282 8680.600 / 2407.600 15.333 / 15.333 Output Total 1025 / 1025 2026 Balance 521.233 / 521.233 380.600 / 380.600 15.333 / 15.333 Cumulative 10/14/21 12:05 thru 10/20/21 07:40 Intake Total 9258.833 Output Total 9652 Balance -393.167 RT Ventilator Mngmt (Last Documented) Ventilator Ordered Settings Respiratory Rate 17 10/20/21 07:54 Fraction of Inspired Oxygen 30 10/17/21 16:02 Ventilator - PT Measurements Respiratory Rate 17 PG Care Time/CCT Total # of Minutes Spent Total Time Spent with Patient: Total time spent is greater than 50% in coordination of care (as documented) at patient's floor/unit and/or counseling patient: Coding Level of Care Code 26030 Subseq Hosp Care Lvl 3 Diagnoses Multifocal pneumonia J18.9 Acute and chronic respiratory failure with hypoxia J96.21 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
[2021-10-20] MEDS: TAMSULOSIN HCL 0.4 MG CAP PO SCH (08:30)
[2021-10-20] MEDS: FAMOTIDINE 20 MG TAB PO SCH ×2 (08:31→21:10)
[2021-10-20] MEDS: OMEPRAZOLE 20 MG CAPCR PO SCH (08:31)
[2021-10-20] MEDS: dilTIAZem HCL 240 MG CAPCR PO SCH (08:39)
[2021-10-20] MEDS: DOCUSATE SODIUM/SENNA 50/8.6MG TAB PO SCH (08:39)
[2021-10-20] MEDS: IRBESARTAN 150 MG TAB PO SCH (08:40)
[2021-10-20] MEDS ORDERED: metHOTREXate sodium 2.5 MG TAB PO SCH ×2 (09:00→21:00)
[2021-10-20] MEDS ORDERED: FLUCONAZOLE 100 MG TAB PO SCH (09:00)
[2021-10-20] MEDS ORDERED: MIDAZOLAM HCL 5 MG/ML 1 ML VIAL ONE (10:30)
[2021-10-20] MEDS ORDERED: fentaNYL citrate 100 MCG/2 ML VIAL ONE (10:30)
--- NOTE | 2021-10-20 11:09 | Pre Anesthesia Assessment ---
Date of Service October 20, 2021 Pre Sedation Assessment Vital Signs Temp Pulse Pulse Resp BP BP Pulse Ox 10/20/21 11:00 18 135/70 95 10/20/21 07:54 36.9 C 73 17 138/66 95 10/20/21 07:15 65 10/20/21 03:00 36.8 C 71 15 108/53 L 94 10/19/21 23:23 36.6 C 63 16 112/54 L 93 10/19/21 23:15 70 10/19/21 20:35 36.9 C 10/19/21 20:12 36.9 C 72 20 145/74 H 96 10/19/21 20:00 73 21 98 10/19/21 18:00 72 10 L 94 10/19/21 16:00 75 6 L 94 10/19/21 15:51 36.9 C 70 18 116/58 L 96 10/19/21 15:37 68 10/19/21 14:00 83 0 L 10/19/21 12:00 74 15 10/19/21 11:50 36.8 C 61 20 119/59 L 95 Pre-Sedation Airway Assessment Smoking Status: Never smoker Hx Sleep Apnea: No Hx Difficult Intubation: No Short, Thick Neck: No Thyromental Distance: < 3.5 Finger Breadths Oral Cavity: + WNL Mallampati Class: I ASA: ASA2 NPO Status Date of Last Intake of Fluids: 10/20/21 Time of Last Intake of Fluids: 00:00 Last Oral Intake of Fluids Comment: sip with medication Date of Last Intake of Solid Food: 10/20/21 Time of Last Intake of Solid Foods: 00:00 Notes The planned sedation has been discussed with the patient. Informed Consent was obtained. I have identified the patient, determined the appropriateness of sedation and have assessed the patient immediately prior to the procedure. All medicine(s) and interventions are by my order.
--- NOTE | 2021-10-20 11:31 | Post Anesthesia Assessment ---
Date of Service October 20, 2021 Post Sedation Assessment Vital Signs Temp Pulse Pulse Resp BP BP Pulse Ox 10/20/21 11:30 66 18 119/49 L 95 10/20/21 11:25 86 18 136/61 91 10/20/21 11:20 72 18 133/32 L 95 10/20/21 11:15 76 18 126/61 93 10/20/21 11:10 72 18 133/70 95 10/20/21 11:00 69 18 135/70 95 10/20/21 07:54 36.9 C 73 17 138/66 95 10/20/21 07:15 65 10/20/21 03:00 36.8 C 71 15 108/53 L 94 10/19/21 23:23 36.6 C 63 16 112/54 L 93 10/19/21 23:15 70 10/19/21 20:35 36.9 C 10/19/21 20:12 36.9 C 72 20 145/74 H 96 10/19/21 20:00 73 21 98 10/19/21 18:00 72 10 L 94 10/19/21 16:00 75 6 L 94 10/19/21 15:51 36.9 C 70 18 116/58 L 96 10/19/21 15:37 68 10/19/21 14:00 83 0 L 10/19/21 12:00 74 15 10/19/21 11:50 36.8 C 61 20 119/59 L 95 Recovery Score Activity: Moves 4 extremities Respiration: Deep Breath/Cough Circulation: +/-20% PreAnes Value Consciousness: Arouseable (by name) Oxygen Saturation: O2 needed for >90% Post Anesthesia Score: 8 Discharge Sedation Level of Care: Fast Track Phase II Post Sedation Plan On clinical assessment, the patient appears to have tolerated the sedation without complications. Patient is recovering as anticipated. Patient will continue to be monitored by nursing and may be discharged when sedation discharge criteria are met per below protocol. Upon Completions of procedure up to 15 minutes continue every 5 minute vital signs and the P.A.R. score; then discharge to a Phase I or Fast Track to Phase II per the following guidelines: * Discharge Patient to appropriate Phase II area if PAR is 8 or greater or return to pre- procedure baseline. The post - procedure orders will be as directed. * If PAR score is less than 8 or not return to pre-procedure baseline then patient will follow Phase I monitoring till PAR is reached for Phase II. The Phase I may be done in procedure room or may call to secure a Phase I area. * If naloxone or flumazenil are used for reversal, hold in Phase I for continued monitoring from when last reversal dose was given for a minimum of 60 minutes or longer pending the nurse and/or physician discretion of patient condition before discharge to Phase II. Please call the Sedation Physician to re-evaluate and complete post-note for discharge to Phase II area. Do NOT discharge from procedure sedation or Phase 1 until post- sedation evaluation note is complete by procedure /sedation MD Sedation Discharge Instructions to be given to the patient at discharge to home.
--- NOTE | 2021-10-20 11:34 | Procedure Note ---
Procedure Note Date of Service October 20, 2021 Note Procedure: Fiberoptic bronchoscopy Bronchoalveolar lavage Conscious sedation Provider: Kobi Benito MD Consent: Signed by patient and timeout verified prior to procedure. Sedation start: 1112 Sedation end: 1130 Conscious sedation: 4 mg Versed, 100 mcg fentanyl, topical lidocaine per RT protocol Indication: Abnormal CT scan Procedure: Patient was brought to the bronchoscopy suite. Consent was verified. Appropriate radiographic studies had been reviewed prior to the procedure. Standard monitoring was applied. Oxygen was administered. After topical anesthesia of the airways per respiratory therapy protocol, the fiberoptic scope was advanced through the left nares. Oropharynx was unremarkable. Vocal cords were visualized and were normal in function and appearance. Topical anesthesia of the cords was achieved with instillation of lidocaine through the scope. Scope was then passed through the vocal cords. The trachea was midline. Main irina was sharp. Anesthesia of the lower airways was achieved with instillation of lidocaine through the scope. A sequential and systematic examination of the lower airways was conducted. The right-sided airways were normal in anatomic configuration and appearance and the mucosa appeared normal. Left-sided airways were normal in anatomic configuration and appearance and the mucosa appeared normal. After the inspection bronchoscopy was completed, the scope was wedged into the posterior segment of the right upper lobe. A BAL was performed with instillation of 3 aliquots of sterile 60 cc saline. Return was about 50 to 60% and slightly cloudy but no evidence of pulmonary hemorrhage. The bronchoscope was then removed from the airways. The patient tolerated the procedure well without obvious complication. Patient was returned to the recovery room. Impression: 1. Normal inspection bronchoscopy. 2. Successful BAL posterior segment right upper lobe, await cytology and pathology as well as microbiologic evaluation Coding CPT Codes Sedation/Anesthesia - Sedation/Anesthesia: 41553 Mod Sedation by the same physician;Init15 Min Child Age 5 & Up ([id number]) Sedation/Anesthesia - Sedation/Anesthesia: 76177 Mod Sedation by the same physician; Ea [id number] Minutes ([id number]) Pulmonary/Thoracic - Pulmonary and Thoracic: 05402 Dx bronchoscopy/BAL ([id number]) [facility] [place] Procedure Codes (Charges) Pulmonary/Thoracic Procedure 1: Pulmonary and Thoracic: 46259 Dx bronchoscopy/BAL Sedation/Anesthesia Procedure 2: Sedation/Anesthesia: 50746 Mod Sedation by the same physician;Init15 Min Child Age 5 & Up Total Sedation Time (minutes): 18 Procedure 3: Sedation/Anesthesia: 76962 Mod Sedation by the same physician; Ea [id number] Minutes Total Sedation Time (minutes): 18
[2021-10-20 13:53] LABS: Eosinophil Body Fluid Man 0 %; Fluid Mono/Macrophage 67 %; Lymphocyte Body Fluid Man 26 %; Neutrophil Body Fluid Man 7 %
[2021-10-20] MEDS: ATOVAQUONE 750 MG/5 ML UDC PO SCH ×2 (14:03→21:09)
[2021-10-20] MEDS: POLYETHYLENE (MIRALAX) 17 GM PACK PO SCH (14:03)
[2021-10-20 14:23] LABS: Partial Thromboplastin Ratio 1.1; Partial Thromboplastin Time 30.6 Seconds (21.0-31.0)
--- NOTE | 2021-10-20 16:38 | Billing Data ---
Date of Service October 20, 2021 Coding Level of Care Code 50893 Subseq Hosp Care Lvl 3
[2021-10-20] MEDS: HEPARIN SODIUM/DEXTROSE 25,000 UNITS/500 ML BAG IV SCH (20:56)
[2021-10-20] MEDS: HYDROCODONE/ACETAMOPHEN 5/325MG TAB PO PRN (22:52)
[2021-10-20] MEDS: APIXABAN 5 MG TABLET PO SCH (22:52)
[2021-10-20] MEDS: PROMETHAZINE HCL 25 MG/20 ML UDP PO PRN (22:53)
[2021-10-21 07:03] LABS: Basophils # (auto) 0.02 K/uL (0-0.2); Basophils % (auto) 0.1 %; Eosinophils # (auto) 0.18 K/uL (0-0.5); Eosinophils % (auto) 1.2 %; Hematocrit (blood only) 34.5 % (37-47); Hemoglobin 11.6 g/dL (12.0-16.0); Immature Granulocytes # (auto) 0.65 K/uL (0.00-0.02); Immature Granulocytes % (auto) 4.3 %; Lymphocytes # (auto) 1.32 K/uL (1.2-3.4); Lymphocytes % (auto) 8.7 %; Mean Corpuscular Hemoglobin 30.9 pg (25-34); Mean Corpuscular Hgb Conc 33.6 g/dL (32-36); Mean Corpuscular Volume 91.8 fL (80-100); Mean Platelet Volume 10.3 fL (7.4-10.4); Monocytes # (auto) 2.66 K/uL (0.11-0.59); Monocytes % (auto) 17.5 %; Neutrophils # (auto) 10.38 K/uL (1.4-6.5); Neutrophils % (auto) 68.2 %; Platelet Count 267 K/uL (130-400); RDW Coefficient of Variation 17.2 % (11.5-14.5); Red Blood Count 3.76 M/uL (4.2-5.4); White Blood Count 15.21 K/uL (4.8-10.8)
[2021-10-21 07:13] LABS: Partial Thromboplastin Ratio 1.1; Partial Thromboplastin Time 31.2 Seconds (21.0-31.0)
[2021-10-21 07:33] LABS: BUN Creatinine Ratio 34.1 (10-20); Calcium 9.6 mg/dl (8.5-10.1); Est GFR (Non-African American) 60.4 ml/min; Potassium 5.2 mmol/L (3.5-5.1)
[2021-10-21] MEDS: INSULIN ASPART PER UNIT SC SCH ×4 (08:19→21:08)
[2021-10-21] MEDS: APIXABAN 5 MG TABLET PO SCH ×2 (08:24→21:40)
[2021-10-21] MEDS: ATOVAQUONE 750 MG/5 ML UDC PO SCH ×2 (08:24→21:14)
[2021-10-21] MEDS: dilTIAZem HCL 240 MG CAPCR PO SCH (08:25)
[2021-10-21] MEDS: DOCUSATE SODIUM/SENNA 50/8.6MG TAB PO SCH (08:25)
[2021-10-21] MEDS: FAMOTIDINE 20 MG TAB PO SCH ×3 (08:25→21:17)
[2021-10-21] MEDS: IRBESARTAN 150 MG TAB PO SCH (08:26)
[2021-10-21] MEDS: OMEPRAZOLE 20 MG CAPCR PO SCH (08:26)
[2021-10-21] MEDS: predniSONE 20 MG TAB PO SCH (08:26)
[2021-10-21] MEDS: POLYETHYLENE (MIRALAX) 17 GM PACK PO SCH (08:27)
[2021-10-21] MEDS: TAMSULOSIN HCL 0.4 MG CAP PO SCH (08:27)
--- NOTE | 2021-10-21 09:53 | Hospitalist Progress Note ---
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 Multifocal pneumonia -CTA w/ interstitial thickening and airspace opacities represent interstitial edema w/ alveolar edema &/or PNA -COVID & RVP negative. -WBC increased to 15.32, from 8.6 today, MRSA negative, procal 0.11 on admission, new procal ordered also normal. -Blood cultures negative, Fungitell positive. -Etiology bacterial vs. viral vs. pulmonary edema -Started on Vancomycin, Cefepime, Azithromycin on 10/14. D/C'ed Vanc due to MRSA negative -Pulmonology consulted -For PJP, Bactrim started, PJP PCR ordered. Switched to Atovaquone. -Fungitell positive -Now on day 11/04 of PJP treatment. -Completed 5 day course of Azithromycin (day 09/18). -Completed high dose steroid - taper w/ prednisone 40mg 2 days, 20mg 11 days to complete course. -Performed bronchoscopy 10/20, no evidence of pulmonary hemorrhage. -PJP PCR pending. -Continue to wean O2 as tolerated. Hyponatremia -Pt. chronically hyponatremic at baseline, usually in the low 130s (130-132). -Sodium levels have steadily but noticeably dropped in the last 2 days, to 124 today, from 131. -Drop coincides w/ start of Bactrim, Lasix (for empiric Pneumocystis jirovecii coverage, and hypervolemic fluid status respectively). -Given pt's current euvolemia, also suspect SIADH 2/2 pneumonia. -1.5 L/day fluid restriction. Trend a.m. BMP Elevated creatinine -Improving. Creatinine of 0.91 today, down from 1.00. -Patient responded well to 0.5 L bag NSS. Will consider a second bag if creatinine fails to trend positively. -Trend a.m. BMP Acute respiratory failure with hypoxia requiring high flow NC -Hypoxic to 83% in ED requiring High Flow O2. -CTA negative for PE. -Given 20mg IV Lasix in on admission -Echo w/ EF 60-65%, Borderline pulmonary HTN. -On RA at this time, still with some desats to upper 80's on exertion. -Wean oxygen as tolerated. Hypercalcemia: -Ca of ~11-12 past few months. -Ca 12.4, ionized Ca 1.43, Mg 1.2 on arrival. -Outpatient workup - PTH, PTHrP low; Vitamin D WNL -No foods or medications with high calcium. -CT negative for signs of sarcoidosis. -APOLLO level WNL. -Pulmonology consulted - ordered NAMAN w/ reflex, RF, anti-CCP -Received IVF, repeat Ca 11.4, ionized Ca 1.39 -Patient received dose of Calcitonin 4units/kg, Zolendronic acid 4mg. -Ca today 9.6. Holding calcitonin and zoledronate for now. 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 Navarro outpatient -Continue home prednisone, holding MTX. Tachy-sylvia syndrome: -Afib with tachy-sylvia syndrome s/p pacemaker -Rate controlled. -Holding heparin at 21:00 tonight, restarting Eliquis BID. Continued home diltiazem -Resume home Eliquis after bronchoscopy. Hypomagnesemia: -Mg 1.2 on arrival. -Mg 1.7 10/19. Repleted 4 g. DMII (diabetes mellitus, type 2): -Hold metformin -SSI DVT Prophylaxis: Eliquis BID. 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): (6) Tachy-sylvia syndrome: (7) Hypomagnesemia: (8) DMII (diabetes mellitus, type 2): Admission and Anticipated Discharge Date Admission Date: October 14, 2021 Supervising Physician Co-Signing Physician Notes I personally examined the patient and verified all villanueva points of history and exam, discussed case, and agree with decision making with Dr Melendez feeling better, was off O2 for a bit thinking towards going home vitals noted nad heent nc at mmm breathing unlabored no accessory muscles good effort skin no rashes no pallor or icterus pulmonary infection - treating as opportunistic/PJP, bronch done today, washings pending, improving, PT/OT, wean O2, hopefully home soon otherwise as above Subjective Patient seen at the bedside, patient curious of her condition and the future precautions/potentials for future infections. Denies any shortness of breath, chest pain, fevers, chills. Review of Systems Constitutional: as per Subjective / HPI Physical Exam Constitutional: WD/WN, vitals as above Respiratory: normal respiratory effort, lungs clear to auscultation Cardiovascular: RRR, no murmur, no edema Gastrointestinal (Abdomen): normal bowel sounds, soft, nontender, no hepatosplenomegaly Psychiatric: A+Ox3, euthymic affect Results & Data Results & Data ([facility]) Vital Signs (Past 12 Hours) Vital Signs Temp Pulse Pulse Resp BP Pulse Ox 10/21/21 07:00 36.5 C 68 16 133/68 98 10/21/21 03:00 37.1 C 66 20 114/59 L 97 10/20/21 23:10 78 10/20/21 22:56 36.7 C 84 15 117/81 93 Resident Activity Tracking Resident Involvement: Resident Care Provided Care Provided: Adult Hospital Medicine (1) Cholelithiasis Biliary obstruction: without biliary obstruction Cholecystitis presence: without cholecystitis Cholelithiasis location: gallbladder Qualified Code(s): K80.20 - Calculus of gallbladder without cholecystitis without obstruction
--- NOTE | 2021-10-21 13:02 | Pulmonology Progress Note ---
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 Patient has been empirically treated with Bactrim (discontinued due to possible rash), atovaquone, fluconazole and Solu-Medrol. She is cli nically improved. She underwent bronchoscopy with BAL 10/20/2021 Recommendations: 1. Abnormal CT scan: Serological evaluation unrevealing. The patient has been empirically treated and appears to be improving. Await final bronchoscopy results as well as PJP PCR. 2. BNP normal and echocardiogram unrevealing. Hold on additional diuresis. 3. Continue atovaquone and prednisone. Continue prednisone 40 mg a day for the next 2 days then decrease down to 20 mg a day for 11 days to complete course. Await PJP PCR and bronchoscopy specimens. Will likely need to complete 21 days of anti PJP theray. 4. Continue to wean oxygen as tolerated. Target oxygen saturation of 90% 5. Will need close outpatient follow-up with outpatient rheumatology. Patient appears to be doing well enough clinically to consider discharge. Recommend ambulating the patient is to ensure she does not require supplemental oxygen with activity. She can be dismissed from the hospital and follow-up in the outpatient setting with Dr. Engle. She will need follow-up imaging which can be arranged outpatient pulmonary follow-up. We will also determine length of therapy on atovaquone at that time. Please contact us with additional questions. Will sign off. Admission and Anticipated Discharge Date Admission Date: October 14, 2021 Subjective Patient seen and examined. EMR reviewed. The patient is doing well post bronchoscopy. She is been weaned off of oxygen. She is coughing and expectorating small amounts of clear phlegm with occasional blood tinge in it. She is not having any chest pain. No fevers chills or night sweats. No wheezing. She overall feels better. She does feel weak. PT and OT evaluations have been ordered today Review of Systems Review of Systems: All systems reviewed & are unremarkable except as noted in Subjective Physical Exam Constitutional: WD/WN, vitals as above ENMT: Mallampati Class: I Neck: trachea midline, no thyromegaly Respiratory: normal respiratory effort, lungs clear to auscultation Cardiovascular: RRR, no murmur, no edema Gastrointestinal (Abdomen): normal bowel sounds, soft, nontender, no hepatosplenomegaly Musculoskeletal: Extremities: extremities normal to inspection Skin: no rashes, warm and dry Lymphatic: no cervical lymphadenopathy Results & Data Results & Data ([facility]) Vital Signs (Past 12 Hours) Vital Signs Temp Pulse Pulse Resp BP Pulse Ox 10/21/21 11:00 36.5 C 74 16 129/75 94 10/21/21 07:00 36.5 C 68 16 133/68 98 10/21/21 06:07 71 10/21/21 03:00 37.1 C 66 20 114/59 L 97 Laboratory Results 10/21/21 06:06 10/21/21 06:06 BAL studies: Differential: 7% neutrophils, 26% lymphocytes, 0% eosinophils and 67% monocyte macrophages Viral cultures pending AFB stains negative, cultures pending Fungal stains negative, cultures pending Cytology pending Pneumocystis PCR pending Diagnostic Findings No new imaging PG Care Time/CCT Total # of Minutes Spent Total Time Spent with Patient: Total time spent is greater than 50% in coordination of care (as documented) at patient's floor/unit and/or counseling patient: Coding Level of Care Code 74777 Subseq Hosp Care Lvl 2 Diagnoses Multifocal pneumonia J18.9 Acute and chronic respiratory failure with hypoxia J96.21 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
--- NOTE | 2021-10-21 18:12 | Billing Data ---
Date of Service October 21, 2021 Coding Level of Care Code 53020 Subseq Hosp Care Lvl 3
[2021-10-21] MEDS: HYDROCODONE/ACETAMOPHEN 5/325MG TAB PO PRN (21:13)
[2021-10-21] MEDS: PROMETHAZINE HCL 25 MG/20 ML UDP PO PRN (21:14)
[2021-10-22] MEDS: Heparin IV Adult Wt-Based Standard *NO* Bolus Protocol IV SCH ×5 (06:35→06:39)
--- NOTE | 2021-10-22 07:00 | Hospitalist Progress Note ---
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 Multifocal pneumonia -CTA w/ interstitial thickening and airspace opacities represent interstitial edema w/ alveolar edema &/or PNA -COVID & RVP negative. -WBC increased to 15.32, from 8.6 today, MRSA negative, procal 0.11 on admission, new procal ordered also normal. -Blood cultures negative, Fungitell positive. -Etiology bacterial vs. viral vs. pulmonary edema -Started on Vancomycin, Cefepime, Azithromycin on 10/14. D/C'ed Vanc due to MRSA negative -Pulmonology consulted -For PJP, Bactrim started, PJP PCR ordered. Switched to Atovaquone. -Fungitell positive -Now on day 12/04 of PJP treatment. -Completed 5 day course of Azithromycin (day 09/18). -Completed high dose steroid - taper w/ prednisone 40mg 2 days, 20mg 11 days to complete course. -Performed bronchoscopy 10/20, no evidence of pulmonary hemorrhage. -PJP PCR pending. Hyponatremia -Pt. chronically hyponatremic at baseline, usually in the low 130s (130-132). -Sodium levels have steadily but noticeably dropped in the last 2 days, to 124 today, from 131. -Drop coincides w/ start of Bactrim, Lasix (for empiric Pneumocystis jirovecii coverage, and hypervolemic fluid status respectively). -Given pt's current euvolemia, also suspect SIADH 2/2 pneumonia. -1.5 L/day fluid restriction. Trend a.m. BMP Elevated creatinine -Improving. Creatinine of 0.91 today, down from 1.00. -Patient responded well to 0.5 L bag NSS. Will consider a second bag if creatinine fails to trend positively. -Trend a.m. BMP Acute respiratory failure with hypoxia requiring high flow NC -Hypoxic to 83% in ED requiring High Flow O2. -CTA negative for PE. -Given 20mg IV Lasix in on admission -Echo w/ EF 60-65%, Borderline pulmonary HTN. -On RA at this time, still with some desats to upper 80's on exertion. -Wean oxygen as tolerated. Hypercalcemia: -Ca of ~11-12 past few months. -Ca 12.4, ionized Ca 1.43, Mg 1.2 on arrival. -Outpatient workup - PTH, PTHrP low; Vitamin D WNL -No foods or medications with high calcium. -CT negative for signs of sarcoidosis. -APOLLO level WNL. -Pulmonology consulted - ordered NAMAN w/ reflex, RF, anti-CCP -Received IVF, repeat Ca 11.4, ionized Ca 1.39 -Patient received dose of Calcitonin 4units/kg, Zolendronic acid 4mg. -Ca today 9.6. Holding calcitonin and zoledronate for now. 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 Navarro outpatient -Continue home prednisone, holding MTX. Tachy-sylvia syndrome: -Afib with tachy-sylvia syndrome s/p pacemaker -Rate controlled. -Holding heparin at 21:00 tonight, restarting Eliquis BID. Continued home diltiazem -Resume home Eliquis after bronchoscopy. Hypomagnesemia: -Mg 1.2 on arrival. -Mg 1.7 10/19. Repleted 4 g. DMII (diabetes mellitus, type 2): -Hold metformin -SSI DVT Prophylaxis: Eliquis BID. F/E/N/GI: Carb consistent T2DM Code Status: Full Code Dispo: PCU. PT/OT eval once. 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 She denies any shortness of breath, chest pain, fevers, chills. Review of Systems Constitutional: as per Subjective / HPI Physical Exam Constitutional: WD/WN, vitals as above Respiratory: mild bilateral basilar Cardiovascular: RRR, no murmur, no edema Gastrointestinal (Abdomen): normal bowel sounds, soft, nontender, no hepatosplenomegaly Psychiatric: A+Ox3, euthymic affect Results & Data Results & Data ([facility]) Vital Signs (Past 12 Hours) Vital Signs Temp Pulse Pulse Resp BP BP Pulse Ox 10/22/21 04:16 36.5 C 68 18 135/60 95 10/22/21 00:10 60 10/21/21 23:05 36.7 C 83 20 145/62 H 96 10/21/21 19:31 36.6 C 70 20 144/68 H 94 Resident Activity Tracking Resident Involvement: Resident Care Provided Care Provided: Adult Hospital Medicine (1) Cholelithiasis Biliary obstruction: without biliary obstruction Cholecystitis presence: without cholecystitis Cholelithiasis location: gallbladder Qualified Code(s): K80.20 - Calculus of gallbladder without cholecystitis without obstruction
[2021-10-22 07:08] LABS: BUN Creatinine Ratio 31.3 (10-20); Calcium 9.8 mg/dl (8.5-10.1); Creatinine Clr Calc Pharmacy 54.4 ml/min; Est GFR (African American) 78.3 ml/min; Est GFR (Non-African American) 67.5 ml/min; Potassium 4.7 mmol/L (3.5-5.1)
[2021-10-22] MEDS: ATOVAQUONE 750 MG/5 ML UDC PO SCH (08:16)
[2021-10-22] MEDS: IRBESARTAN 150 MG TAB PO SCH (08:16)
[2021-10-22] MEDS: APIXABAN 5 MG TABLET PO SCH (08:16)
[2021-10-22] MEDS: OMEPRAZOLE 20 MG CAPCR PO SCH (08:16)
[2021-10-22] MEDS: POLYETHYLENE (MIRALAX) 17 GM PACK PO SCH (08:16)
[2021-10-22] MEDS: predniSONE 20 MG TAB PO SCH (08:17)
[2021-10-22] MEDS: dilTIAZem HCL 240 MG CAPCR PO SCH (08:17)
[2021-10-22] MEDS: INSULIN ASPART PER UNIT SC SCH ×2 (08:18→12:37)
[2021-10-22] MEDS: FAMOTIDINE 20 MG TAB PO SCH (08:18)
[2021-10-22] MEDS: TAMSULOSIN HCL 0.4 MG CAP PO SCH (08:18)
[2021-10-22] MEDS: DOCUSATE SODIUM/SENNA 50/8.6MG TAB PO SCH (08:18)
[2021-10-22] MEDS: HYDROCODONE/ACETAMOPHEN 5/325MG TAB PO PRN (12:42)
--- NOTE | 2021-10-22 17:24 | Discharge Summary ---
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 Patient comes to the EMD today for continued complaint of lower abdominal pain. Patient has been having this ongoing for over the last 2-3 months. Patient was noted to be hypoxic on room air during evaluation as well. She had routine CXR, labs, performed, she had CT of her abdomen and pelvis performed on the . The CXR returned with bilateral opacities and concern for multifocal pneumonia. Her COVID test was negative. She was started on Vancomycin and Cefepime IV. Patient states that overall last week she started to have a cough with clear secretions and fever of 101 noted last night. She also feels that over the last week that she has had increase in dyspnea and walking up steps has become difficult as well as about 50 feet she feels tired. She was noted again as well to by hypercalcemic- 12.4 and with low mag 1.2. Will obtain CTA PE of the chest with her acute hypoxia as well as to evaluate her opacities better. Continue ABX therapy. Lasix 20mg IV now. She denies any travel or other contacts that were ill. Overall the patient was diagnosed with seronegative polyarthritis back in December, she has also had some elevated calcium levels looking back to around August- she had initial workup started in September with PTH (6.4), Vitamin 25hydroxy (51.9), PTHrp (9), she notes that her weigher and crusher next evaluation was for workup of Sarcoidosis, but this has not been initiated. SPEP and UPEP were also sent. 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 Patient COVID/FLU/RSV: PCR NEGATIVE- Although her symptoms were approx about a week ago- will admit as PUI with retest likely in the morning. Admission Exam Per Admitting Provider General: awake, alert, no apparent distress Head: Normocephalic, atraumatic ENT: PERRL, EOMI, no pharyngeal exudate, mucous membranes moist Neuro: AAO x 3, speech clear and appropriate, strength intact bilaterally 5/5, sensation intact and equal all extremities and dermatomes, no pronator drift Chest: equal rise and fall of the chest, no accessory muscle use, no heaves or thrills, Clear to auscultation, on room air, Cardiac: Regular rate and rhythm, telemetry reviewed, skin warm dry, cap refill <3 seconds, peripheral pulses +2 no JVD, no murmur, no edema GI: NABS x 4 quadrants, soft, nontender to palpation, no rebound, guarding or tenderness : Spontaneously voiding, no pain, no CVA tenderness, Extremities: Normal inspection, no peripheral edema or erythema, calfs nontender to palpation Psych: Normal mood and affect Skin: no rash or erythema Principal Diagnosis Pneumocystis Jirovecii Pneumonia Discharge Exam Constitutional WD/WN, vitals as above Respiratory normal respiratory effort, lungs clear to auscultation Cardiovascular RRR, no murmur, no edema Gastrointestinal (Abdomen) normal bowel sounds, soft, nontender, no hepatosplenomegaly Psychiatric A+Ox3, euthymic affect Discharge Data Allergies Allergy/AdvReac Type Severity Reaction Status Date / Time amoxicillin Allergy Intermediate "I FELT Verified 10/14/21 13:42 WORSE AFTER TAKING THE MEDICATION" hydroxychloroquine Allergy Intermediate HIVES HEAD Verified 10/14/21 13:42 [From Plaquenil] TO TOE pantoprazole Allergy Intermediate "DIDN'T Verified 10/14/21 13:42 FEEL WELL AND WENT INTO A-FIB" APOLLO Inhibitors AdvReac Intermediate COUGH Verified 10/14/21 13:42 Consultations 10/14/21 14:48 ED Decision to Admit Stat 10/16/21 09:11 Consult Pulmonology Routine Procedures Performed Operation Date: 10/20/21 11:00 Actual Procedures p Bronchoscopy Radiology - Kobi Benito MD Ordered Studies 10/14/21 15:47 CT angio chest PE protocol Stat Multifocal airspace opacities are seen. There is smooth interstitial thickening. Interstitial thickening and airspace opacities are favored to represent interstitial edema with alveolar edema and/or pneumonia. Hospital Course (1) Hypoxia: Tessa is a 76 y/o female w/ PmHx of RS3PE follows on prednisone and MTX, No Simon's, A fib on apixaban, tachy-sylvia syndrome s/p pacemaker, HTN, GERD, T2DM, HLD, hypomagnesemia admitted for acute hypoxic respiratory failure and multifocal pneumonia. Multifocal pneumonia -CTA w/ interstitial thickening and airspace opacities represent interstitial edema w/ alveolar edema &/or PNA -COVID & RVP negative. -WBC increased to 15.32, from 8.6 today, MRSA negative, procal 0.11 on admission, new procal ordered also normal. -Blood cultures negative, Fungitell positive. -Etiology bacterial vs. viral vs. pulmonary edema -Started on Vancomycin, Cefepime, Azithromycin on 10/14. D/C'ed Vanc due to MRSA negative -Pulmonology consulted -Suspicion for PJP given immunosuppressed w/o improvement on broad spectrum antibiotics. -For PJP, Bactrim started, PJP PCR ordered. Switched to Atovaquone. -Fungitell positive. -Given 7 of 21 days of PJP treatment. Continue Atovaquone for additional 14 days. -Completed 5 day course of Azithromycin (day 5/5). -Completed high dose steroid - taper w/ prednisone 40mg 2 days, 20mg 11 days to complete course. -Performed bronchoscopy 10/20, no evidence of pulmonary hemorrhage. -PJP PCR pending. Hyponatremia -Pt. chronically hyponatremic at baseline, usually in the low 130s (130-132). -Drop coincided w/ start of Bactrim. -Fluid restricted w/ gradual return to 129 before discharge. -Will need recheck of Na on BMP. Recommend BMP 2x/week until trend WNL. Acute respiratory failure with hypoxia requiring high flow NC -Hypoxic to 83% in ED requiring High Flow O2. -CTA negative for PE. -Given 20mg IV Lasix in on admission -Echo w/ EF 60-65%, Borderline pulmonary HTN. -Weaned off O2, walker w/ walking, pulse ox for home for checking any dyspnea that may come up. Hypercalcemia: -Ca of ~11-12 past few months. -Ca 12.4, ionized Ca 1.43, Mg 1.2 on arrival. -Outpatient workup - PTH, PTHrP low; Vitamin D WNL -No foods or medications with high calcium. -CT negative for signs of sarcoidosis. -APOLLO level WNL. -Pulmonology consulted - NAMAN w/ reflex, RF, anti-CCP WNL -Patient received one dose of Calcitonin 4units/kg, Zolendronic acid 4mg. -Ca today 9.8, has been stable in 9's for past few days. -Recommend repeat Ca2+ 3-5 days w/ BMP 2x/week. 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 Navarro outpatient -On prednisone taper as above. -Holding Methotrexate, patient to discuss w/ Dr. 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): (6) Tachy-sylvia syndrome: (7) Hypomagnesemia: (8) DMII (diabetes mellitus, type 2): Total Time Total Time Spent Total Time Spent (In Minutes): <30 Discharge Plan Discharge Items Patient Disposition: Home - Self-Care Reason For Visit: DYSPNEA, ABDOMINAL PAIN, HYPOXIA Discharge Diagnosis: multifocal pneumonia Activity: Per Instructions section Non-emergency contact: Primary Care Provider Call non-emergency contact if: your symptoms worsen Follow-up/Referrals: Ilya Yu MD [Primary Care Provider] - 10/29/21 2:30 pm Kobi Benito MD [Physician] - 10/28/21 2:00 pm Sunil Frank MD [Physician] - 10/22/21 (DR FRANK OFFICE WILL CONTACT YOU REGARDING FOLLOW UP ) Diet: Regular Addtl Attending Provider Instructions: Pneumonia You came to the hospital and were treated for pneumonia and will be treated with Atovaquone twice a day for the the next 14 days. We will want you to garbage pick up man a pulse oximeter (the device that you place on your finger to look at your oxygen level). The numbers that are concerning for us are consistently lower than 92% and if at any point you are in the 80's you need to call or come in for further evaluation. Difficulty walking You will need to use your walker when you are getting around after leaving the hospital. Think about safety when walking and take time when you stand up prior to walking. RS3PE syndrome You will need to follow up with need to stop taking Methotrexate for now. You can continue the Prednisone at 40 mg for one day and then 20 mg for 11 days. You will need to call Dr. Navarro's office to discuss when to restart your methotrexate after your hospitalization. Follow up - PCP 1-2 weeks - pulmonology - rheumatology Pending Studies at Discharge: No Stand-Alone Forms: My [facility], Smoking Cessation Medications and DC Order Prescriptions: New atovaquone [Mepron] 750 mg/5 mL Suspension 750 mg PO BID 14 Days Qty: 140 RF: 0 prednisone 20 mg Tablet See Rx Instructions .ROUTE .COMPLEX Qty: 13 RF: 0 Continued irbesartan 300 mg tablet 300 mg PO DAILY Qty: 90 RF: 3 diltiazem HCl 240 mg capsule,extended release 24hr 240 mg PO DAILY Qty: 90 RF: 3 folic acid 1 mg tablet 1 mg PO DAILY Qty: 90 RF: 3 Eliquis 5 mg tablet 5 mg PO BID Qty: 180 RF: 3 metformin 500 mg tablet extended release 24hr 500 mg PO DAILY Qty: 90 RF: 3 hydrocodone-acetaminophen 5-325 mg tablet See Rx Instructions PO Q6H MDD 8 PRN (Reason: severe pain) Qty: 240 RF: 0 omeprazole 40 mg capsule,delayed release(DR/EC) 40 mg PO DAILY Qty: 30 RF: 5 prednisone 5 mg tablet 7.5 mg PO DAILY RF: 0 (DME) Incontinence pads. daytime Qty: 100 RF: 11 (DME) incontinence pads nighttime Qty: 60 RF: 11 triamcinolone acetonide 0.1 % cream 1 applic topical BID PRN (Reason: skin irritation) Qty: 80 RF: 3 (DME) blood-glucose meter [Blood Glucose Monitoring] Kit See Rx Instructions .Route Qty: 50 RF: 11 tamsulosin 0.4 mg capsule 0.4 mg PO DAILY RF: 0 red yeast rice 600 mg Capsule 1,200 mg PO DAILY RF: 0 Discontinued methotrexate sodium 2.5 mg tablet 20 mg PO .weekly RF: 0 Discharge Orders: Discharge Order (Routine); Ordered 10/22/21 Ordered By: Mark Parra Admission Data Admit Date/Time: 10/14/21 15:58 Attending Provider: Ac Sheridan Admit Provider: Zac Samson Primary Care Provider: Ilya Yu Other Providers: Bennett Chery ; Ileana Engle Other Interventions: Discharge Summary Assessment (RN) Last Done: 10/22/21 16:37 Supervising Physician Co-Signing Physician Notes I personally examined the patient and verified all villanueva points of history and exam, discussed case, and agree with decision making with Dr Melendez feels good steady on feet feels up to going home hasn't needed O2 vitals noted nad heent nc at mmm breathing unlabored no accessory muscles good effort skin no rashes no pallor or icterus pulmonary infection - treating as opportunistic/PJP, bronch done today, washings pending, improving, stable for home -serial BMP to follow up on Ca+2 -rheumatology follow up, hold MTX for now -pulm follow up - atovaquone/steroids -PCP f/u otherwise as above Resident Activity Tracking Resident Involvement: Resident Care Provided Care Provided: Adult Hospital Medicine
--- NOTE | 2021-10-22 17:32 | Billing Data ---
Date of Service October 22, 2021 Coding Level of Care Code D/C DAY MANAGEMENT <30 MINS
[2021-10-24 08:55] LABS: Pneumocystis jirovecii PCRQual NOT DETECTED; Pneumocystis jirovecii Source SPUTUM
== END 2021-10-22 17:40 | disposition home or self-care (01) | DRG 177 ==
LOC: ED 12:05 → SUATTDRO 15:58 → EDINP 15:58 → 2E 10-15 19:28